=== PATIENT | female | born 1940 | race Caucasian/White ===

== ENCOUNTER 2018-04-14 14:40 | Inpatient (IN) | payer MEDICARE ==
[~2018-04-14] VITALS: Ht 170.2 cm; Wt 50.3 kg
[2018-04-14] MEDS ORDERED: ATOR40TA PO (14:54)
[2018-04-14] MEDS ORDERED: LISI40TA4 PO (14:54)
[2018-04-14] MEDS ORDERED: QUET25TA PO (14:54)
[2018-04-14] MEDS ORDERED: HYDR-4077 PO (14:54)
[2018-04-14] MEDS ORDERED: WARF-68 PO (14:54)
[2018-04-14] MEDS ORDERED: LACT1CAP61 PO (14:54)
[2018-04-14] MEDS ORDERED: FOLI1TAB16 PO (14:54)
[2018-04-14] MEDS ORDERED: ASCO500T9 PO (14:54)
[2018-04-14] MEDS ORDERED: ASPI-1169 PO (14:54)
[2018-04-14] MEDS ORDERED: THIA100T13 PO (14:54)
[2018-04-14] MEDS ORDERED: AMLO10TA2 PO (14:54)
[2018-04-14] MEDS ORDERED: ACET-868 PO (14:54)
[2018-04-14] MEDS ORDERED: PIPERACILLIN /TAZOBACTAM 3.375 G in IV D5W 50 ML IV ONE (15:00)
[2018-04-14] MEDS ORDERED: IV NS 0.9% 1,000 ML BAG IV ONE ×2 (15:00)
[2018-04-14] MEDS ORDERED: ACETAMINOPHEN 650 MG/SUPP.RECT RC ONE ×3 (15:00→15:19)
[2018-04-14 15:15] LABS: BASOPHILS # (AUTO) 0.4 /CMM (0.0-0.2); BASOPHILS % (AUTO) 3.2 % (0.0-2.0); HEMATOCRIT 35 % (33-45); HEMOGLOBIN 11.5 g/dL (11.5-14.8); LYMPHOCYTES # (AUTO) 0.9 /CMM (0.8-4.8); MEAN CORPUSCULAR HEMOGLOBIN 26 PG (26.0-33.0); MEAN CORPUSCULAR HGB CONC 33 g/dl (31.0-36.0); MEAN CORPUSCULAR VOLUME 79 fL (82-100); MONOCYTES # (AUTO) 0.9 /CMM (0.1-1.30); MONOCYTES % (AUTO) 6.7 % (2.0-12.0); NEUTROPHILS # (AUTO) 10.8 /CMM (1.8-8.9); NEUTROPHILS % (AUTO) 83.1 % (43.0-81.0); PLATELET COUNT (AUTO) 310 /CMM (150-450); RDW COEFFICIENT OF VARIATION 15.9 (11.5-15.0)
[2018-04-14 15:26] LABS: CALCIUM, SERUM 10.4 mg/dL (8.5-10.1); CARBON DIOXIDE 26 mmol/L (21-32); CHLORIDE 108 mmol/L (98-107); CREATININE 0.9 mg/dL (0.6-1.3); GLUCOSE 181 mg/dL (74-106); POTASSIUM 3.2 mmol/L (3.5-5.1); SODIUM SERUM 142 mmol/L (136-145); UREA NITROGEN, BLOOD 21 mg/dL (7-18)
[2018-04-14 15:29] LABS: INR 1.45 (0.85-1.15)
[2018-04-14] MEDS: POTASSIUM CL. PREMIX PERIPHER. 50 ML IV SCH ×2 (15:30→16:59)
[2018-04-14 15:31] LABS: ALANINE AMINOTRANSFERASE 11 U/L (12-78); ALBUMIN 2.2 g/dL (3.4-5.0); ALKALINE PHOSPHATASE 77 U/L (46-116); ASPARTATE AMINOTRANSFERASE 11 U/L (15-37); BILIRUBIN,DIRECT 0.1 mg/dL (0.0-0.2); BILIRUBIN,TOTAL 0.5 mg/dL (0.2-1.0); TOTAL PROTEIN, SERUM 7.4 g/dL (6.4-8.2)
[2018-04-14 15:33] LABS: TROPONIN I 0.047 ng/mL (0.00-0.056)
[2018-04-14 15:45] LABS: APPEARANCE,URINE Cloudy (CLEAR); BILIRUBIN,URINE Negative (NEGATIVE); BLOOD, URINE Trace-intact Ery/uL (NEGATIVE); COLOR,URINE Yellow (YELLOW); KETONES,URINE 15 (NEGATIVE); LEUKOCYTE ESTERASE ,URINE Small (NEGATIVE); NITRITE, URINE Positive (NEGATIVE); PROTEIN,URINE 100 mg/dl (NEGATIVE); UGLUCOSE Negative (NEGATIVE); UROBILINOGEN,URINE 0.2 EU/dL (0.2)
[2018-04-14 16:07] LABS: BACTERIA,URINE Moderate /HPF (None Seen); SQUAMOUS EPITHELIAL CELL,UR Few /HPF (None Seen)
[2018-04-14] MEDS ORDERED: POTASSIUM CL. PREMIX PERIPHER. 100 ML ONE (16:39)
[2018-04-14] MEDS ORDERED: IV NS 0.9% 1,000 ML IV PRN (17:30)
[2018-04-14] MEDS ORDERED: FEE PK DOSING 1 MIN EA MC ONE (17:51)
[2018-04-14] MEDS: VANCOMYCIN 500 MG in IV D5W 100 ML IV SCH (19:40)
[2018-04-14 20:32] VITALS: BP 97/55
[2018-04-14] MEDS ORDERED: ACETAMINOPHEN 325 MG TABLET PO PRN (21:00)
[2018-04-14] MEDS: MEROPENEM 1 G in IV NS 0.9% 100 ML IV SCH (21:01)
[2018-04-14 21:16] LABS: TROPONIN I 0.076 ng/mL (0.00-0.056)
[2018-04-14] MEDS: ATORVASTATIN 40 MG TABLET PO SCH (22:54)
[2018-04-14] MEDS: QUETIAPINE FUMARATE 25 MG TABLET PO SCH (22:56)
[2018-04-14 23:42] VITALS: BP 125/53
[2018-04-15] VITALS (14 sets, daily range): BP systolic 105–163; BP diastolic 35–89
[2018-04-15] MEDS: VANCOMYCIN 500 MG in IV D5W 100 ML IV SCH ×2 (05:20→18:10)
[2018-04-15 06:53] LABS: INR 2.19 (0.87-1.13)
[2018-04-15 06:58] LABS: BASOPHILS # (AUTO) 0.1 /CMM (0.0-0.2); BASOPHILS % (AUTO) 0.4 % (0.0-2.0); EOSINOPHILS % (AUTO) 0.1 % (0.0-6.0); HEMATOCRIT 29 % (33-45); HEMOGLOBIN 9.6 g/dL (11.5-14.8); LYMPHOCYTES # (AUTO) 1.7 /CMM (0.8-4.8); LYMPHOCYTES % (AUTO) 12.8 % (20.0-44.0); MEAN CORPUSCULAR HEMOGLOBIN 26 PG (26.0-33.0); MEAN CORPUSCULAR HGB CONC 33 g/dl (31.0-36.0); MEAN CORPUSCULAR VOLUME 80 fL (82-100); MONOCYTES # (AUTO) 0.8 /CMM (0.1-1.30); NEUTROPHILS # (AUTO) 10.5 /CMM (1.8-8.9); NEUTROPHILS % (AUTO) 80.7 % (43.0-81.0); PLATELET COUNT (AUTO) 277 /CMM (150-450); RDW COEFFICIENT OF VARIATION 17.3 (11.5-15.0); RED BLOOD CELL COUNT(AUTO) 3.63 MIL/uL (4.0-5.2)
[2018-04-15 07:04] LABS: CALCIUM, SERUM 9.7 mg/dL (8.5-10.1); CARBON DIOXIDE 24 mmol/L (21-32); CHLORIDE 117 mmol/L (98-107); CREATININE 0.6 mg/dL (0.6-1.3); GLUCOSE 126 mg/dL (74-106); MAGNESIUM 1.6 mg/dL (1.8-2.4); PHOSPHORUS 1.8 mg/dL (2.5-4.9); POTASSIUM 3.2 mmol/L (3.5-5.1); SODIUM SERUM 149 mmol/L (136-145); UREA NITROGEN, BLOOD 17 mg/dL (7-18)
[2018-04-15 07:10] LABS: CHOLESTEROL 79 mg/dL (<200); HDL CHOLESTEROL 37 mg/dL (40-60); LDL 39 mg/dL (0-99); THYROID STIMULATING HORMONE 0.085 uIU/mL (0.358-3.74); TRIGLYCERIDES 46 mg/dL (30-150)
[2018-04-15 07:11] LABS: TROPONIN I 0.061 ng/mL (0.00-0.056)
[2018-04-15] MEDS ORDERED: ASPIRIN 81 MG TAB.CHEW PO SCH (09:00)
[2018-04-15] MEDS: MEROPENEM 1 G in IV NS 0.9% 100 ML IV SCH ×2 (09:13→22:46)
[2018-04-15] MEDS: FOLIC ACID 1 MG TABLET PO SCH (09:20)
[2018-04-15] MEDS: THIAMINE HCL 100 MG TABLET PO SCH (09:20)
[2018-04-15] MEDS: ASCORBIC ACID 500 MG TABLET PO SCH (09:20)
[2018-04-15] MEDS: PANTOPRAZOLE 40 MG VIAL IV SCH (09:20)
[2018-04-15] MEDS: LACTOBACILLUS RHAMNOSUS GG 1 EACH CAP.SPRINK PO SCH (09:20)
[2018-04-15] MEDS ORDERED: HYDROGEL DRESSING 90 GM TUBE TP PRN (11:00)
[2018-04-15] MEDS: Magnesium 1GM/D5W 100ML PREMIX 100 ML IV SCH ×2 (11:45→15:04)
[2018-04-15] MEDS ORDERED: IV D5/0.45 NACL 1,000 ML IV PRN (12:00)
[2018-04-15] MEDS ORDERED: PHYTONADIONE INJ 10 MG in IV D5W 50 ML IV ONE (12:30)
[2018-04-15 12:33] LABS: BASOPHILS % (AUTO) 0.4 % (0.0-2.0); EOSINOPHILS % (AUTO) 0.4 % (0.0-6.0); HEMATOCRIT 29 % (33-45); HEMOGLOBIN 9.5 g/dL (11.5-14.8); LYMPHOCYTES # (AUTO) 1.2 /CMM (0.8-4.8); LYMPHOCYTES % (AUTO) 9.8 % (20.0-44.0); MEAN CORPUSCULAR HEMOGLOBIN 26 PG (26.0-33.0); MEAN CORPUSCULAR HGB CONC 33 g/dl (31.0-36.0); MEAN CORPUSCULAR VOLUME 80 fL (82-100); MONOCYTES # (AUTO) 0.7 /CMM (0.1-1.30); MONOCYTES % (AUTO) 5.2 % (2.0-12.0); NEUTROPHILS # (AUTO) 10.6 /CMM (1.8-8.9); NEUTROPHILS % (AUTO) 84.2 % (43.0-81.0); PLATELET COUNT (AUTO) 272 /CMM (150-450); RDW COEFFICIENT OF VARIATION 17.5 (11.5-15.0); RED BLOOD CELL COUNT(AUTO) 3.65 MIL/uL (4.0-5.2); WHITE BLOOD COUNT (AUTO) 12.6 K/uL (4.3-11.0)
[2018-04-15] MEDS ORDERED: K PHOS NEUTRAL 250 MG TABLET PO ONE (14:00)
[2018-04-15 14:25] LABS: INR 2.88 (0.87-1.13)
[2018-04-15] MEDS: POTASSIUM CL. PREMIX PERIPHER. 50 ML IV SCH ×4 (15:20→19:23)
[2018-04-15] MEDS: Z GUARD REMEDY 2 OZ OINT TP PRN (15:22)
[2018-04-15] MEDS: Z GUARD REMEDY 2 OZ OINT TP SCH (15:25)
[2018-04-15] MEDS ORDERED: WARFARIN SODIUM 1 MG TABLET PO SCH (17:00)
[2018-04-15] MEDS: CADEXOMER IODINE 40 GM TUBE TP SCH (17:40)
[2018-04-15] MEDS: HYDROGEL DRESSING 90 GM TUBE TP SCH (17:41)
[2018-04-15 18:25] LABS: HEMOGLOBIN 10.7 g/dL (11.5-14.8); RED BLOOD CELL COUNT(AUTO) 4.17 MIL/uL (4.0-5.2); WHITE BLOOD COUNT (AUTO) 13.1 K/uL (4.3-11.0)
[2018-04-15 18:26] LABS: BASOPHILS % (AUTO) 0.2 % (0.0-2.0); EOSINOPHILS % (AUTO) 1.2 % (0.0-6.0); HEMATOCRIT 34 % (33-45); LYMPHOCYTES # (AUTO) 1.2 /CMM (0.8-4.8); MEAN CORPUSCULAR HEMOGLOBIN 26 PG (26.0-33.0); MEAN CORPUSCULAR HGB CONC 32 g/dl (31.0-36.0); MEAN CORPUSCULAR VOLUME 82 fL (82-100); MONOCYTES # (AUTO) 0.7 /CMM (0.1-1.30); MONOCYTES % (AUTO) 5.7 % (2.0-12.0); NEUTROPHILS % (AUTO) 83.9 % (43.0-81.0); PLATELET COUNT (AUTO) 243 /CMM (150-450); RDW COEFFICIENT OF VARIATION 17.2 (11.5-15.0)
[2018-04-15] MEDS: ATORVASTATIN 40 MG TABLET PO SCH (21:13)
[2018-04-15] MEDS: QUETIAPINE FUMARATE 25 MG TABLET PO SCH (21:13)
[2018-04-15] MEDS ORDERED: MEROPENEM 1 G VIAL IV ONE (22:36)
[2018-04-16] VITALS (24 sets, daily range): BP systolic 97–168; BP diastolic 50–93
[2018-04-16 00:28] LABS: BASOPHILS % (AUTO) 0.1 % (0.0-2.0); EOSINOPHILS % (AUTO) 1.3 % (0.0-6.0); HEMATOCRIT 29 % (33-45); HEMOGLOBIN 9.5 g/dL (11.5-14.8); LYMPHOCYTES # (AUTO) 1.1 /CMM (0.8-4.8); LYMPHOCYTES % (AUTO) 7.4 % (20.0-44.0); MEAN CORPUSCULAR HEMOGLOBIN 26 PG (26.0-33.0); MEAN CORPUSCULAR HGB CONC 33 g/dl (31.0-36.0); MEAN CORPUSCULAR VOLUME 80 fL (82-100); MONOCYTES # (AUTO) 0.7 /CMM (0.1-1.30); MONOCYTES % (AUTO) 4.8 % (2.0-12.0); NEUTROPHILS # (AUTO) 12.9 /CMM (1.8-8.9); NEUTROPHILS % (AUTO) 86.4 % (43.0-81.0); PLATELET COUNT (AUTO) 292 /CMM (150-450); RDW COEFFICIENT OF VARIATION 17.1 (11.5-15.0); RED BLOOD CELL COUNT(AUTO) 3.62 MIL/uL (4.0-5.2)
[2018-04-16] MEDS: VANCOMYCIN 500 MG in IV D5W 100 ML IV SCH (05:04)
[2018-04-16 05:12] LABS: BASOPHILS % (AUTO) 0.1 % (0.0-2.0); EOSINOPHILS % (AUTO) 1.5 % (0.0-6.0); HEMATOCRIT 29 % (33-45); HEMOGLOBIN 9.7 g/dL (11.5-14.8); LYMPHOCYTES # (AUTO) 1.3 /CMM (0.8-4.8); LYMPHOCYTES % (AUTO) 8.5 % (20.0-44.0); MEAN CORPUSCULAR HEMOGLOBIN 26 PG (26.0-33.0); MEAN CORPUSCULAR HGB CONC 33 g/dl (31.0-36.0); MEAN CORPUSCULAR VOLUME 80 fL (82-100); MONOCYTES # (AUTO) 0.7 /CMM (0.1-1.30); MONOCYTES % (AUTO) 4.6 % (2.0-12.0); NEUTROPHILS # (AUTO) 12.8 /CMM (1.8-8.9); NEUTROPHILS % (AUTO) 85.3 % (43.0-81.0); PLATELET COUNT (AUTO) 278 /CMM (150-450); RDW COEFFICIENT OF VARIATION 16.8 (11.5-15.0); RED BLOOD CELL COUNT(AUTO) 3.67 MIL/uL (4.0-5.2)
[2018-04-16 05:47] LABS: VANCOMYCIN,TROUGH 8 ug/ml (12-20)
[2018-04-16 05:55] LABS: CALCIUM, SERUM 9.3 mg/dL (8.5-10.1); CARBON DIOXIDE 23 mmol/L (21-32); CHLORIDE 111 mmol/L (98-107); CREATININE 0.4 mg/dL (0.6-1.3); GLUCOSE 165 mg/dL (74-106); MAGNESIUM 1.6 mg/dL (1.8-2.4); SODIUM SERUM 145 mmol/L (136-145); UREA NITROGEN, BLOOD 9 mg/dL (7-18)
[2018-04-16 06:01] LABS: POTASSIUM 2.5 mmol/L (3.5-5.1)
[2018-04-16 06:02] LABS: PHOSPHORUS 1.1 mg/dL (2.5-4.9)
[2018-04-16] MEDS: POTASSIUM CL. PREMIX PERIPHER. 50 ML IV SCH ×10 (07:17→17:33)
[2018-04-16] MEDS ORDERED: POTASSIUM CL. PREMIX PERIPHER. 50 ML IV SCH (08:00)
[2018-04-16] MEDS: PANTOPRAZOLE 40 MG VIAL IV SCH (08:42)
[2018-04-16] MEDS: THIAMINE HCL 100 MG TABLET PO SCH (08:42)
[2018-04-16] MEDS: LACTOBACILLUS RHAMNOSUS GG 1 EACH CAP.SPRINK PO SCH (08:42)
[2018-04-16] MEDS: ASCORBIC ACID 500 MG TABLET PO SCH (08:42)
[2018-04-16] MEDS: FOLIC ACID 1 MG TABLET PO SCH (08:43)
[2018-04-16] MEDS: HYDROGEL DRESSING 90 GM TUBE TP SCH (08:43)
[2018-04-16] MEDS: Z GUARD REMEDY 2 OZ OINT TP SCH (08:43)
[2018-04-16] MEDS: CADEXOMER IODINE 40 GM TUBE TP SCH (08:44)
[2018-04-16] MEDS: MEROPENEM 1 G in IV NS 0.9% 100 ML IV SCH (08:45)
[2018-04-16 08:50] LABS: INR 1.09 (0.87-1.13)
[2018-04-16 09:24] LABS: TROPONIN I 0.401 ng/mL (0.00-0.056)
[2018-04-16] MEDS: Magnesium 1GM/D5W 100ML PREMIX 100 ML IV SCH ×2 (09:55→10:55)
[2018-04-16 16:12] LABS: BASOPHILS % (AUTO) 0.3 % (0.0-2.0); EOSINOPHILS % (AUTO) 1.7 % (0.0-6.0); HEMATOCRIT 31 % (33-45); HEMOGLOBIN 9.9 g/dL (11.5-14.8); LYMPHOCYTES # (AUTO) 1.4 /CMM (0.8-4.8); MEAN CORPUSCULAR HEMOGLOBIN 26 PG (26.0-33.0); MEAN CORPUSCULAR HGB CONC 32 g/dl (31.0-36.0); MEAN CORPUSCULAR VOLUME 80 fL (82-100); MONOCYTES # (AUTO) 0.6 /CMM (0.1-1.30); MONOCYTES % (AUTO) 3.5 % (2.0-12.0); NEUTROPHILS # (AUTO) 13.6 /CMM (1.8-8.9); NEUTROPHILS % (AUTO) 85.5 % (43.0-81.0); PLATELET COUNT (AUTO) 215 /CMM (150-450); RDW COEFFICIENT OF VARIATION 17.2 (11.5-15.0); RED BLOOD CELL COUNT(AUTO) 3.85 MIL/uL (4.0-5.2); WHITE BLOOD COUNT (AUTO) 15.9 K/uL (4.3-11.0)
[2018-04-16] MEDS: VANCOMYCIN 0.75 GM in IV D5W 250 ML IV SCH (16:50)
[2018-04-16] MEDS ORDERED: K PHOS NEUTRAL 250 MG TABLET PO SCH (17:00)
[2018-04-16] MEDS ORDERED: IV NS 0.9% 500 ML BAG IV ONE (17:30)
[2018-04-16] MEDS: RIVAROXABAN 10 MG TABLET PO SCH (17:34)
[2018-04-16 18:10] LABS: BASOPHILS % (AUTO) 0.3 % (0.0-2.0); EOSINOPHILS % (AUTO) 1.8 % (0.0-6.0); HEMATOCRIT 31 % (33-45); HEMOGLOBIN 10.1 g/dL (11.5-14.8); LYMPHOCYTES # (AUTO) 1.3 /CMM (0.8-4.8); MEAN CORPUSCULAR HEMOGLOBIN 26 PG (26.0-33.0); MEAN CORPUSCULAR HGB CONC 33 g/dl (31.0-36.0); MEAN CORPUSCULAR VOLUME 80 fL (82-100); MONOCYTES # (AUTO) 0.5 /CMM (0.1-1.30); MONOCYTES % (AUTO) 3.2 % (2.0-12.0); NEUTROPHILS # (AUTO) 12.2 /CMM (1.8-8.9); NEUTROPHILS % (AUTO) 85.7 % (43.0-81.0); PLATELET COUNT (AUTO) 280 /CMM (150-450); RDW COEFFICIENT OF VARIATION 17.3 (11.5-15.0); RED BLOOD CELL COUNT(AUTO) 3.83 MIL/uL (4.0-5.2); WHITE BLOOD COUNT (AUTO) 14.2 K/uL (4.3-11.0)
[2018-04-16] MEDS: CEFEPIME 1 GM in IV D5W 50 ML IV SCH (18:51)
[2018-04-16 18:56] LABS: CARBON DIOXIDE 22 mmol/L (21-32); CHLORIDE 108 mmol/L (98-107); CREATININE 0.5 mg/dL (0.6-1.3); GLUCOSE 261 mg/dL (74-106); MAGNESIUM 1.8 mg/dL (1.8-2.4); POTASSIUM 3.8 mmol/L (3.5-5.1); SODIUM SERUM 138 mmol/L (136-145); UREA NITROGEN, BLOOD 9 mg/dL (7-18)
[2018-04-16] MEDS ORDERED: Sodium Phosphate 15 MMOL in IV D5W 250 ML IV ONE (20:00)
[2018-04-16] MEDS: QUETIAPINE FUMARATE 25 MG TABLET PO SCH (23:01)
[2018-04-17] VITALS (23 sets, daily range): BP systolic 102–161; BP diastolic 55–100
[2018-04-17] MEDS: VANCOMYCIN 0.75 GM in IV D5W 250 ML IV SCH ×2 (03:40→15:35)
[2018-04-17 05:04] LABS: BASOPHILS % (AUTO) 0.3 % (0.0-2.0); EOSINOPHILS % (AUTO) 2.3 % (0.0-6.0); HEMATOCRIT 31 % (33-45); HEMOGLOBIN 10.1 g/dL (11.5-14.8); LYMPHOCYTES # (AUTO) 1.4 /CMM (0.8-4.8); LYMPHOCYTES % (AUTO) 9.9 % (20.0-44.0); MEAN CORPUSCULAR HEMOGLOBIN 26 PG (26.0-33.0); MEAN CORPUSCULAR HGB CONC 33 g/dl (31.0-36.0); MEAN CORPUSCULAR VOLUME 80 fL (82-100); MONOCYTES # (AUTO) 0.5 /CMM (0.1-1.30); MONOCYTES % (AUTO) 3.8 % (2.0-12.0); NEUTROPHILS # (AUTO) 12.2 /CMM (1.8-8.9); NEUTROPHILS % (AUTO) 83.7 % (43.0-81.0); PLATELET COUNT (AUTO) 276 /CMM (150-450); RDW COEFFICIENT OF VARIATION 16.9 (11.5-15.0); RED BLOOD CELL COUNT(AUTO) 3.85 MIL/uL (4.0-5.2); WHITE BLOOD COUNT (AUTO) 14.5 K/uL (4.3-11.0)
[2018-04-17 05:19] LABS: ALANINE AMINOTRANSFERASE 17 U/L (12-78); ALBUMIN 1.7 g/dL (3.4-5.0); ALKALINE PHOSPHATASE 86 U/L (46-116); ASPARTATE AMINOTRANSFERASE 20 U/L (15-37); BILIRUBIN,TOTAL 0.4 mg/dL (0.2-1.0); CALCIUM, SERUM 8.8 mg/dL (8.5-10.1); CARBON DIOXIDE 22 mmol/L (21-32); CHLORIDE 107 mmol/L (98-107); CREATININE 0.4 mg/dL (0.6-1.3); GLUCOSE 210 mg/dL (74-106); MAGNESIUM 2.3 mg/dL (1.8-2.4); PHOSPHORUS 1.6 mg/dL (2.5-4.9); SODIUM SERUM 139 mmol/L (136-145); TOTAL PROTEIN, SERUM 6.1 g/dL (6.4-8.2); UREA NITROGEN, BLOOD 8 mg/dL (7-18)
[2018-04-17 05:31] LABS: POTASSIUM 2.6 mmol/L (3.5-5.1)
[2018-04-17] MEDS ORDERED: POTASSIUM CHLORIDE 20 MEQ TAB.PRT.SR PO ONE (06:30)
[2018-04-17] MEDS: POTASSIUM CL. PREMIX PERIPHER. 50 ML IV SCH ×4 (06:36→11:00)
[2018-04-17] MEDS: PANTOPRAZOLE 40 MG VIAL IV SCH (08:11)
[2018-04-17] MEDS: LACTOBACILLUS RHAMNOSUS GG 1 EACH CAP.SPRINK PO SCH (09:21)
[2018-04-17] MEDS: FOLIC ACID 1 MG TABLET PO SCH (09:21)
[2018-04-17] MEDS: ASCORBIC ACID 500 MG TABLET PO SCH (09:21)
[2018-04-17] MEDS: THIAMINE HCL 100 MG TABLET PO SCH (09:21)
[2018-04-17] MEDS: HYDROGEL DRESSING 90 GM TUBE TP SCH (09:22)
[2018-04-17] MEDS: Z GUARD REMEDY 2 OZ OINT TP SCH (09:23)
[2018-04-17] MEDS: CADEXOMER IODINE 40 GM TUBE TP SCH (09:23)
[2018-04-17] MEDS: MORPHINE SULFATE INJ 4 MG/ML DISP.SYRIN IV PRN (11:49)
[2018-04-17 13:24] LABS: BASOPHILS % (AUTO) 0.2 % (0.0-2.0); EOSINOPHILS % (AUTO) 2.4 % (0.0-6.0); HEMATOCRIT 31 % (33-45); HEMOGLOBIN 10.1 g/dL (11.5-14.8); LYMPHOCYTES # (AUTO) 1.2 /CMM (0.8-4.8); LYMPHOCYTES % (AUTO) 9.2 % (20.0-44.0); MEAN CORPUSCULAR HEMOGLOBIN 26 PG (26.0-33.0); MEAN CORPUSCULAR HGB CONC 33 g/dl (31.0-36.0); MEAN CORPUSCULAR VOLUME 80 fL (82-100); MONOCYTES # (AUTO) 0.5 /CMM (0.1-1.30); MONOCYTES % (AUTO) 3.9 % (2.0-12.0); NEUTROPHILS # (AUTO) 11.1 /CMM (1.8-8.9); NEUTROPHILS % (AUTO) 84.3 % (43.0-81.0); PLATELET COUNT (AUTO) 294 /CMM (150-450); RED BLOOD CELL COUNT(AUTO) 3.83 MIL/uL (4.0-5.2); WHITE BLOOD COUNT (AUTO) 13.1 K/uL (4.3-11.0)
[2018-04-17] MEDS ORDERED: DEXTROSE 50%-WATER 50 ML DISP.SYRIN IV PRN (13:30)
[2018-04-17] MEDS ORDERED: K PHOS NEUTRAL 250 MG TABLET PO ONE (13:30)
[2018-04-17 15:53] LABS: MAGNESIUM 1.6 mg/dL (1.8-2.4); PHOSPHORUS 1.6 mg/dL (2.5-4.9)
[2018-04-17] MEDS: K PHOS NEUTRAL 250 MG TABLET PO SCH ×2 (16:41→22:31)
[2018-04-17] MEDS: RIVAROXABAN 10 MG TABLET PO SCH (16:44)
[2018-04-17] MEDS: Magnesium 1GM/D5W 100ML PREMIX 100 ML IV SCH ×2 (16:51→18:31)
[2018-04-17] MEDS: BLOOD SUGAR DIAGNOSTIC 1 EACH STRIP IN SCH ×2 (17:52→22:31)
[2018-04-17] MEDS: CEFEPIME 1 GM in IV D5W 50 ML IV SCH (17:52)
[2018-04-17] MEDS: INSULIN REGULAR, HUMAN 100 UNIT/ML 3 ML VIAL SQ PRN ×2 (17:53→22:50)
[2018-04-17 18:06] LABS: BASOPHILS % (AUTO) 0.2 % (0.0-2.0); EOSINOPHILS % (AUTO) 2.8 % (0.0-6.0); HEMATOCRIT 31 % (33-45); LYMPHOCYTES # (AUTO) 1.5 /CMM (0.8-4.8); MEAN CORPUSCULAR HEMOGLOBIN 26 PG (26.0-33.0); MEAN CORPUSCULAR HGB CONC 32 g/dl (31.0-36.0); MEAN CORPUSCULAR VOLUME 80 fL (82-100); MONOCYTES # (AUTO) 0.5 /CMM (0.1-1.30); MONOCYTES % (AUTO) 3.9 % (2.0-12.0); NEUTROPHILS # (AUTO) 10.4 /CMM (1.8-8.9); NEUTROPHILS % (AUTO) 81.1 % (43.0-81.0); PLATELET COUNT (AUTO) 297 /CMM (150-450); RDW COEFFICIENT OF VARIATION 17.7 (11.5-15.0); RED BLOOD CELL COUNT(AUTO) 3.88 MIL/uL (4.0-5.2); WHITE BLOOD COUNT (AUTO) 12.9 K/uL (4.3-11.0)
[2018-04-17] MEDS: QUETIAPINE FUMARATE 25 MG TABLET PO SCH (22:31)
[2018-04-18] VITALS (22 sets, daily range): BP systolic 140–180; BP diastolic 65–99
[2018-04-18 00:46] LABS: MAGNESIUM 2.2 mg/dL (1.8-2.4); POTASSIUM 2.9 mmol/L (3.5-5.1)
[2018-04-18] MEDS ORDERED: POTASSIUM PHOSPHATE MM 15 MMOL in IV D5W 250 ML IV SCH ×4 (02:30)
[2018-04-18] MEDS ORDERED: POTASSIUM CHLORIDE 20 MEQ TAB.PRT.SR PO ONE (02:30)
[2018-04-18] MEDS: VANCOMYCIN 0.75 GM in IV D5W 250 ML IV SCH ×2 (02:57→15:56)
[2018-04-18] MEDS: PANTOPRAZOLE 40 MG VIAL IV SCH (08:28)
[2018-04-18] MEDS: K PHOS NEUTRAL 250 MG TABLET PO SCH ×4 (08:28→21:30)
[2018-04-18] MEDS: FOLIC ACID 1 MG TABLET PO SCH (08:28)
[2018-04-18] MEDS: LACTOBACILLUS RHAMNOSUS GG 1 EACH CAP.SPRINK PO SCH (08:28)
[2018-04-18] MEDS: ASCORBIC ACID 500 MG TABLET PO SCH (08:28)
[2018-04-18] MEDS: BLOOD SUGAR DIAGNOSTIC 1 EACH STRIP IN SCH ×4 (08:28→22:04)
[2018-04-18] MEDS: THIAMINE HCL 100 MG TABLET PO SCH (08:28)
[2018-04-18] MEDS: HYDROGEL DRESSING 90 GM TUBE TP SCH (08:29)
[2018-04-18] MEDS: Z GUARD REMEDY 2 OZ OINT TP SCH (08:30)
[2018-04-18] MEDS: CADEXOMER IODINE 40 GM TUBE TP SCH (08:30)
[2018-04-18 08:31] LABS: CALCIUM, SERUM 8.8 mg/dL (8.5-10.1); CARBON DIOXIDE 25 mmol/L (21-32); CHLORIDE 107 mmol/L (98-107); CREATININE 0.4 mg/dL (0.6-1.3); GLUCOSE 170 mg/dL (74-106); POTASSIUM 3.2 mmol/L (3.5-5.1); SODIUM SERUM 140 mmol/L (136-145); UREA NITROGEN, BLOOD 6 mg/dL (7-18)
[2018-04-18 08:49] LABS: ALANINE AMINOTRANSFERASE 20 U/L (12-78); ALBUMIN 1.7 g/dL (3.4-5.0); ALKALINE PHOSPHATASE 81 U/L (46-116); ASPARTATE AMINOTRANSFERASE 18 U/L (15-37); BASOPHILS % (AUTO) 0.3 % (0.0-2.0); BILIRUBIN,TOTAL 0.4 mg/dL (0.2-1.0); EOSINOPHILS % (AUTO) 4.3 % (0.0-6.0); HEMATOCRIT 31 % (33-45); HEMOGLOBIN 10.3 g/dL (11.5-14.8); LYMPHOCYTES # (AUTO) 1.5 /CMM (0.8-4.8); LYMPHOCYTES % (AUTO) 12.7 % (20.0-44.0); MAGNESIUM 1.9 mg/dL (1.8-2.4); MEAN CORPUSCULAR HEMOGLOBIN 26 PG (26.0-33.0); MEAN CORPUSCULAR HGB CONC 33 g/dl (31.0-36.0); MEAN CORPUSCULAR VOLUME 80 fL (82-100); MONOCYTES # (AUTO) 0.5 /CMM (0.1-1.30); MONOCYTES % (AUTO) 4.6 % (2.0-12.0); NEUTROPHILS # (AUTO) 9.2 /CMM (1.8-8.9); NEUTROPHILS % (AUTO) 78.1 % (43.0-81.0); PHOSPHORUS 2.5 mg/dL (2.5-4.9); PLATELET COUNT (AUTO) 304 /CMM (150-450); RDW COEFFICIENT OF VARIATION 17.2 (11.5-15.0); RED BLOOD CELL COUNT(AUTO) 3.93 MIL/uL (4.0-5.2); TOTAL PROTEIN, SERUM 6.1 g/dL (6.4-8.2); WHITE BLOOD COUNT (AUTO) 11.7 K/uL (4.3-11.0)
[2018-04-18] MEDS ORDERED: POTASSIUM CHLORIDE 20 MEQ TAB.PRT.SR PO SCH (10:00)
[2018-04-18] MEDS ORDERED: LORAZEPAM 0.5 MG TABLET PO PRN (10:00)
[2018-04-18] MEDS: QUETIAPINE FUMARATE 25 MG TABLET PO SCH ×3 (10:03→21:30)
[2018-04-18] MEDS: RIVAROXABAN 10 MG TABLET PO SCH (16:18)
[2018-04-18] MEDS: INSULIN REGULAR, HUMAN 100 UNIT/ML 3 ML VIAL SQ PRN ×2 (17:14→22:06)
[2018-04-18] MEDS: CEFEPIME 1 GM in IV D5W 50 ML IV SCH (17:21)
[2018-04-19] VITALS: BP 150/66
[2018-04-19] MEDS: VANCOMYCIN 0.75 GM in IV D5W 250 ML IV SCH ×2 (02:19→14:35)
[2018-04-19 04:00] VITALS: BP 99/33
[2018-04-19 06:13] LABS: BASOPHILS % (AUTO) 0.2 % (0.0-2.0); EOSINOPHILS % (AUTO) 4.7 % (0.0-6.0); HEMATOCRIT 31 % (33-45); HEMOGLOBIN 10.1 g/dL (11.5-14.8); LYMPHOCYTES # (AUTO) 1.9 /CMM (0.8-4.8); LYMPHOCYTES % (AUTO) 16.7 % (20.0-44.0); MEAN CORPUSCULAR HEMOGLOBIN 26 PG (26.0-33.0); MEAN CORPUSCULAR HGB CONC 33 g/dl (31.0-36.0); MEAN CORPUSCULAR VOLUME 80 fL (82-100); MONOCYTES # (AUTO) 0.7 /CMM (0.1-1.30); MONOCYTES % (AUTO) 6.4 % (2.0-12.0); NEUTROPHILS # (AUTO) 8.3 /CMM (1.8-8.9); PLATELET COUNT (AUTO) 303 /CMM (150-450); RDW COEFFICIENT OF VARIATION 16.5 (11.5-15.0); RED BLOOD CELL COUNT(AUTO) 3.85 MIL/uL (4.0-5.2); WHITE BLOOD COUNT (AUTO) 11.5 K/uL (4.3-11.0)
[2018-04-19 06:46] LABS: CALCIUM, SERUM 8.9 mg/dL (8.5-10.1); CARBON DIOXIDE 25 mmol/L (21-32); CHLORIDE 109 mmol/L (98-107); CREATININE 0.4 mg/dL (0.6-1.3); GLUCOSE 148 mg/dL (74-106); MAGNESIUM 1.7 mg/dL (1.8-2.4); PHOSPHORUS 2.4 mg/dL (2.5-4.9); POTASSIUM 3.1 mmol/L (3.5-5.1); SODIUM SERUM 143 mmol/L (136-145); UREA NITROGEN, BLOOD 8 mg/dL (7-18)
[2018-04-19] MEDS: BLOOD SUGAR DIAGNOSTIC 1 EACH STRIP IN SCH ×4 (07:30→21:25)
[2018-04-19 08:00] VITALS: BP 150/69
[2018-04-19] MEDS: INSULIN REGULAR, HUMAN 100 UNIT/ML 3 ML VIAL SQ PRN ×4 (08:29→21:34)
[2018-04-19] MEDS: LACTOBACILLUS RHAMNOSUS GG 1 EACH CAP.SPRINK PO SCH (08:30)
[2018-04-19] MEDS: K PHOS NEUTRAL 250 MG TABLET PO SCH ×4 (08:30→21:25)
[2018-04-19] MEDS: PANTOPRAZOLE 40 MG VIAL IV SCH (08:30)
[2018-04-19] MEDS: FOLIC ACID 1 MG TABLET PO SCH (08:30)
[2018-04-19] MEDS: QUETIAPINE FUMARATE 25 MG TABLET PO SCH ×3 (08:31→21:25)
[2018-04-19] MEDS: THIAMINE HCL 100 MG TABLET PO SCH (08:31)
[2018-04-19] MEDS: ASCORBIC ACID 500 MG TABLET PO SCH (08:31)
[2018-04-19] MEDS: Z GUARD REMEDY 2 OZ OINT TP PRN (08:32)
[2018-04-19] MEDS: CADEXOMER IODINE 40 GM TUBE TP SCH (08:32)
[2018-04-19] MEDS: HYDROGEL DRESSING 90 GM TUBE TP SCH (08:32)
[2018-04-19] MEDS: Z GUARD REMEDY 2 OZ OINT TP SCH (08:33)
[2018-04-19] MEDS: Magnesium 1GM/D5W 100ML PREMIX 100 ML IV SCH ×2 (09:44→11:07)
[2018-04-19] MEDS: POTASSIUM CL. PREMIX PERIPHER. 50 ML IV SCH ×4 (11:00→13:47)
[2018-04-19 12:00] VITALS: BP 162/54
[2018-04-19] MEDS: AMLODIPINE BESYLATE 5 MG TABLET PO SCH (12:37)
[2018-04-19] MEDS ORDERED: K PHOS NEUTRAL 250 MG TABLET PO ONE (13:30)
[2018-04-19 16:00] VITALS: BP 144/77
[2018-04-19] MEDS: RIVAROXABAN 10 MG TABLET PO SCH (16:05)
[2018-04-19] MEDS: CEFEPIME 1 GM in IV D5W 50 ML IV SCH (18:10)
[2018-04-19] MEDS: FLUCONAZOLE (100 MG) 100 MG TABLET PO SCH (19:41)
[2018-04-19 20:00] VITALS: BP 130/55
[2018-04-20] VITALS (7 sets, daily range): BP systolic 138–168; BP diastolic 63–72
[2018-04-20] MEDS: VANCOMYCIN 0.75 GM in IV D5W 250 ML IV SCH ×2 (03:34→15:12)
[2018-04-20 06:32] LABS: BASOPHILS % (AUTO) 0.4 % (0.0-2.0); EOSINOPHILS % (AUTO) 5.2 % (0.0-6.0); HEMATOCRIT 29 % (33-45); HEMOGLOBIN 9.4 g/dL (11.5-14.8); LYMPHOCYTES # (AUTO) 2.2 /CMM (0.8-4.8); LYMPHOCYTES % (AUTO) 22.3 % (20.0-44.0); MEAN CORPUSCULAR HEMOGLOBIN 26 PG (26.0-33.0); MEAN CORPUSCULAR HGB CONC 33 g/dl (31.0-36.0); MEAN CORPUSCULAR VOLUME 79 fL (82-100); MONOCYTES # (AUTO) 0.7 /CMM (0.1-1.30); MONOCYTES % (AUTO) 6.9 % (2.0-12.0); NEUTROPHILS # (AUTO) 6.6 /CMM (1.8-8.9); NEUTROPHILS % (AUTO) 65.2 % (43.0-81.0); PLATELET COUNT (AUTO) 302 /CMM (150-450); RDW COEFFICIENT OF VARIATION 16.9 (11.5-15.0); RED BLOOD CELL COUNT(AUTO) 3.61 MIL/uL (4.0-5.2); WHITE BLOOD COUNT (AUTO) 10.1 K/uL (4.3-11.0)
[2018-04-20 06:34] LABS: CALCIUM, SERUM 8.8 mg/dL (8.5-10.1); CARBON DIOXIDE 28 mmol/L (21-32); CHLORIDE 109 mmol/L (98-107); CREATININE 0.4 mg/dL (0.6-1.3); GLUCOSE 166 mg/dL (74-106); SODIUM SERUM 144 mmol/L (136-145); UREA NITROGEN, BLOOD 10 mg/dL (7-18)
[2018-04-20 07:09] LABS: POTASSIUM 2.7 mmol/L (3.5-5.1)
[2018-04-20] MEDS ORDERED: POTASSIUM CHLORIDE 10 MEQ/50 ML PREMIXED IVPB FOR PERIPHERAL LINE IV ONE (08:30)
[2018-04-20] MEDS ORDERED: POTASSIUM CHLORIDE 20 MEQ POWDER PACKET PO ONE (08:30)
[2018-04-20] MEDS: BLOOD SUGAR DIAGNOSTIC 1 EACH STRIP IN SCH ×4 (08:43→21:23)
[2018-04-20] MEDS: POTASSIUM CL. PREMIX PERIPHER. 50 ML IV SCH ×4 (08:44→12:20)
[2018-04-20] MEDS: LACTOBACILLUS RHAMNOSUS GG 1 EACH CAP.SPRINK PO SCH (09:50)
[2018-04-20] MEDS: FOLIC ACID 1 MG TABLET PO SCH (09:50)
[2018-04-20] MEDS: THIAMINE HCL 100 MG TABLET PO SCH (09:50)
[2018-04-20] MEDS: PANTOPRAZOLE 40 MG VIAL IV SCH (09:50)
[2018-04-20] MEDS: ASCORBIC ACID 500 MG TABLET PO SCH (09:50)
[2018-04-20] MEDS: AMLODIPINE BESYLATE 5 MG TABLET PO SCH (09:51)
[2018-04-20] MEDS: K PHOS NEUTRAL 250 MG TABLET PO SCH ×4 (09:51→21:23)
[2018-04-20] MEDS: CADEXOMER IODINE 40 GM TUBE TP SCH (09:52)
[2018-04-20] MEDS: HYDROGEL DRESSING 90 GM TUBE TP SCH (09:53)
[2018-04-20] MEDS: Z GUARD REMEDY 2 OZ OINT TP PRN (09:53)
[2018-04-20] MEDS: Z GUARD REMEDY 2 OZ OINT TP SCH (09:56)
[2018-04-20] MEDS: QUETIAPINE FUMARATE 25 MG TABLET PO SCH ×3 (10:05→21:23)
[2018-04-20] MEDS: INSULIN REGULAR, HUMAN 100 UNIT/ML 3 ML VIAL SQ PRN ×3 (12:46→21:33)
[2018-04-20] MEDS: CEFEPIME 1 GM in IV D5W 50 ML IV SCH (17:52)
[2018-04-20] MEDS: RIVAROXABAN 10 MG TABLET PO SCH (17:55)
[2018-04-20] MEDS: FLUCONAZOLE (100 MG) 100 MG TABLET PO SCH (20:30)
[2018-04-21] VITALS: BP_SYST 154; BP_SYST 170; BP_DIAS 53; BP_DIAS 71
[2018-04-21] MEDS: VANCOMYCIN 0.75 GM in IV D5W 250 ML IV SCH ×2 (03:40→14:57)
[2018-04-21 04:00] VITALS: BP 170/71
[2018-04-21] MEDS: MORPHINE SULFATE INJ 4 MG/ML DISP.SYRIN IV PRN (05:47)
[2018-04-21] MEDS ORDERED: CLONIDINE HCL 0.1 MG TABLET PO PRN (06:30)
[2018-04-21 06:47] LABS: BASOPHILS % (AUTO) 0.5 % (0.0-2.0); EOSINOPHILS % (AUTO) 6.6 % (0.0-6.0); HEMATOCRIT 31 % (33-45); HEMOGLOBIN 10.5 g/dL (11.5-14.8); LYMPHOCYTES # (AUTO) 2.4 /CMM (0.8-4.8); LYMPHOCYTES % (AUTO) 28.8 % (20.0-44.0); MEAN CORPUSCULAR HEMOGLOBIN 26 PG (26.0-33.0); MEAN CORPUSCULAR HGB CONC 33 g/dl (31.0-36.0); MEAN CORPUSCULAR VOLUME 79 fL (82-100); MONOCYTES # (AUTO) 0.6 /CMM (0.1-1.30); MONOCYTES % (AUTO) 7.6 % (2.0-12.0); NEUTROPHILS # (AUTO) 4.7 /CMM (1.8-8.9); NEUTROPHILS % (AUTO) 56.5 % (43.0-81.0); PLATELET COUNT (AUTO) 335 /CMM (150-450); RDW COEFFICIENT OF VARIATION 17.3 (11.5-15.0); RED BLOOD CELL COUNT(AUTO) 3.97 MIL/uL (4.0-5.2); WHITE BLOOD COUNT (AUTO) 8.3 K/uL (4.3-11.0)
[2018-04-21 07:08] LABS: CALCIUM, SERUM 9.3 mg/dL (8.5-10.1); CARBON DIOXIDE 31 mmol/L (21-32); CHLORIDE 109 mmol/L (98-107); CREATININE 0.4 mg/dL (0.6-1.3); GLUCOSE 122 mg/dL (74-106); SODIUM SERUM 145 mmol/L (136-145); UREA NITROGEN, BLOOD 8 mg/dL (7-18)
[2018-04-21 07:20] LABS: POTASSIUM 2.6 mmol/L (3.5-5.1)
[2018-04-21 08:00] VITALS: BP 165/76
[2018-04-21] MEDS: QUETIAPINE FUMARATE 25 MG TABLET PO SCH ×3 (08:29→21:24)
[2018-04-21] MEDS: ASCORBIC ACID 500 MG TABLET PO SCH (08:29)
[2018-04-21] MEDS: AMLODIPINE BESYLATE 5 MG TABLET PO SCH (08:30)
[2018-04-21] MEDS: K PHOS NEUTRAL 250 MG TABLET PO SCH ×4 (08:30→21:24)
[2018-04-21] MEDS ORDERED: POTASSIUM CHLORIDE 20 MEQ POWDER PACKET PO ONE (08:30)
[2018-04-21] MEDS: LACTOBACILLUS RHAMNOSUS GG 1 EACH CAP.SPRINK PO SCH (08:30)
[2018-04-21] MEDS: FOLIC ACID 1 MG TABLET PO SCH (08:30)
[2018-04-21] MEDS: PANTOPRAZOLE 40 MG VIAL IV SCH (08:31)
[2018-04-21] MEDS: BLOOD SUGAR DIAGNOSTIC 1 EACH STRIP IN SCH ×4 (08:39→21:24)
[2018-04-21] MEDS: INSULIN REGULAR, HUMAN 100 UNIT/ML 3 ML VIAL SQ PRN ×4 (08:43→21:42)
[2018-04-21] MEDS: POTASSIUM CL. PREMIX PERIPHER. 50 ML IV SCH ×4 (08:44→12:29)
[2018-04-21] MEDS: THIAMINE HCL 100 MG TABLET PO SCH (08:45)
[2018-04-21] MEDS: Z GUARD REMEDY 2 OZ OINT TP PRN (08:46)
[2018-04-21] MEDS: CADEXOMER IODINE 40 GM TUBE TP SCH (08:46)
[2018-04-21] MEDS: Z GUARD REMEDY 2 OZ OINT TP SCH (08:47)
[2018-04-21] MEDS: HYDROGEL DRESSING 90 GM TUBE TP SCH (08:47)
[2018-04-21 12:00] VITALS: BP 145/61
[2018-04-21] MEDS ORDERED: AMLODIPINE BESYLATE 5 MG TABLET PO ONE (12:30)
[2018-04-21 16:00] VITALS: BP 144/78
[2018-04-21] MEDS: RIVAROXABAN 10 MG TABLET PO SCH (17:30)
[2018-04-21] MEDS: CEFEPIME 1 GM in IV D5W 50 ML IV SCH (17:42)
[2018-04-21 20:00] VITALS: BP 144/66
[2018-04-21] MEDS: FLUCONAZOLE (100 MG) 100 MG TABLET PO SCH (21:24)
[2018-04-22] VITALS: BP 144/66
[2018-04-22] MEDS: VANCOMYCIN 0.75 GM in IV D5W 250 ML IV SCH ×2 (02:54→14:38)
[2018-04-22 04:00] VITALS: BP 156/72
[2018-04-22 05:02] VITALS: BP 127/76
[2018-04-22 07:08] LABS: CALCIUM, SERUM 9.3 mg/dL (8.5-10.1); CARBON DIOXIDE 30 mmol/L (21-32); CHLORIDE 108 mmol/L (98-107); CREATININE 0.4 mg/dL (0.6-1.3); GLUCOSE 119 mg/dL (74-106); SODIUM SERUM 145 mmol/L (136-145); UREA NITROGEN, BLOOD 9 mg/dL (7-18)
[2018-04-22] MEDS: BLOOD SUGAR DIAGNOSTIC 1 EACH STRIP IN SCH ×4 (07:52→22:18)
[2018-04-22 08:00] VITALS: BP 145/74
[2018-04-22] MEDS: LACTOBACILLUS RHAMNOSUS GG 1 EACH CAP.SPRINK PO SCH (08:32)
[2018-04-22] MEDS: FOLIC ACID 1 MG TABLET PO SCH (08:33)
[2018-04-22] MEDS: K PHOS NEUTRAL 250 MG TABLET PO SCH ×4 (08:33→20:56)
[2018-04-22] MEDS: THIAMINE HCL 100 MG TABLET PO SCH (08:34)
[2018-04-22] MEDS: QUETIAPINE FUMARATE 25 MG TABLET PO SCH ×3 (08:34→22:17)
[2018-04-22] MEDS: AMLODIPINE BESYLATE 5 MG TABLET PO SCH (08:34)
[2018-04-22] MEDS: ASCORBIC ACID 500 MG TABLET PO SCH (08:35)
[2018-04-22] MEDS: Z GUARD REMEDY 2 OZ OINT TP SCH (08:41)
[2018-04-22] MEDS: PANTOPRAZOLE 40 MG VIAL IV SCH (08:41)
[2018-04-22] MEDS: HYDROGEL DRESSING 90 GM TUBE TP SCH (08:41)
[2018-04-22] MEDS: CADEXOMER IODINE 40 GM TUBE TP SCH (09:00)
[2018-04-22] MEDS: POTASSIUM CHLORIDE 20 MEQ TAB.PRT.SR PO SCH ×3 (10:20→12:11)
[2018-04-22 16:00] VITALS: BP 151/72
[2018-04-22] MEDS: RIVAROXABAN 10 MG TABLET PO SCH (16:26)
[2018-04-22] MEDS: INSULIN REGULAR, HUMAN 100 UNIT/ML 3 ML VIAL SQ PRN ×2 (16:48→22:27)
[2018-04-22] MEDS: CEFEPIME 1 GM in IV D5W 50 ML IV SCH (17:27)
[2018-04-22 20:00] VITALS: BP_SYST 126; BP_SYST 151; BP_DIAS 75; BP_DIAS 90
[2018-04-22] MEDS: FLUCONAZOLE (100 MG) 100 MG TABLET PO SCH (20:56)
[2018-04-23] MEDS: VANCOMYCIN 0.75 GM in IV D5W 250 ML IV SCH ×2 (03:39→14:20)
[2018-04-23 04:00] VITALS: BP_SYST 136; BP_SYST 139; BP_DIAS 66
[2018-04-23] MEDS: HYDROGEL DRESSING 90 GM TUBE TP SCH (05:23)
[2018-04-23] MEDS: CADEXOMER IODINE 40 GM TUBE TP SCH (05:23)
[2018-04-23] MEDS: Z GUARD REMEDY 2 OZ OINT TP PRN (05:24)
[2018-04-23 07:09] LABS: CALCIUM, SERUM 9.4 mg/dL (8.5-10.1); CARBON DIOXIDE 28 mmol/L (21-32); CHLORIDE 109 mmol/L (98-107); CREATININE 0.4 mg/dL (0.6-1.3); GLUCOSE 114 mg/dL (74-106); MAGNESIUM 1.6 mg/dL (1.8-2.4); POTASSIUM 3.4 mmol/L (3.5-5.1); SODIUM SERUM 144 mmol/L (136-145); UREA NITROGEN, BLOOD 9 mg/dL (7-18)
[2018-04-23 07:46] LABS: PHOSPHORUS 3.2 mg/dL (2.5-4.9)
[2018-04-23 08:00] VITALS: BP 174/72
[2018-04-23 08:21] LABS: BASOPHILS % (AUTO) 0.4 % (0.0-2.0); EOSINOPHILS % (AUTO) 4.8 % (0.0-6.0); HEMATOCRIT 31 % (33-45); HEMOGLOBIN 10.1 g/dL (11.5-14.8); LYMPHOCYTES # (AUTO) 1.8 /CMM (0.8-4.8); LYMPHOCYTES % (AUTO) 19.8 % (20.0-44.0); MEAN CORPUSCULAR HEMOGLOBIN 26 PG (26.0-33.0); MEAN CORPUSCULAR HGB CONC 33 g/dl (31.0-36.0); MEAN CORPUSCULAR VOLUME 80 fL (82-100); MONOCYTES # (AUTO) 0.8 /CMM (0.1-1.30); MONOCYTES % (AUTO) 8.1 % (2.0-12.0); NEUTROPHILS # (AUTO) 6.2 /CMM (1.8-8.9); NEUTROPHILS % (AUTO) 66.9 % (43.0-81.0); PLATELET COUNT (AUTO) 338 /CMM (150-450); RDW COEFFICIENT OF VARIATION 17.8 (11.5-15.0); RED BLOOD CELL COUNT(AUTO) 3.88 MIL/uL (4.0-5.2); WHITE BLOOD COUNT (AUTO) 9.3 K/uL (4.3-11.0)
[2018-04-23] MEDS: THIAMINE HCL 100 MG TABLET PO SCH (08:22)
[2018-04-23] MEDS: QUETIAPINE FUMARATE 25 MG TABLET PO SCH ×3 (08:22→21:05)
[2018-04-23] MEDS: AMLODIPINE BESYLATE 5 MG TABLET PO SCH (08:22)
[2018-04-23] MEDS: ASCORBIC ACID 500 MG TABLET PO SCH (08:23)
[2018-04-23] MEDS: K PHOS NEUTRAL 250 MG TABLET PO SCH ×4 (08:23→21:01)
[2018-04-23] MEDS: FOLIC ACID 1 MG TABLET PO SCH (08:23)
[2018-04-23] MEDS: LACTOBACILLUS RHAMNOSUS GG 1 EACH CAP.SPRINK PO SCH (08:23)
[2018-04-23] MEDS: BLOOD SUGAR DIAGNOSTIC 1 EACH STRIP IN SCH ×4 (08:27→21:01)
[2018-04-23] MEDS: PANTOPRAZOLE 40 MG VIAL IV SCH (08:28)
[2018-04-23] MEDS: Z GUARD REMEDY 2 OZ OINT TP SCH (08:28)
[2018-04-23] MEDS: Magnesium 1GM/D5W 100ML PREMIX 100 ML IV SCH ×2 (10:18→12:23)
[2018-04-23] MEDS ORDERED: POTASSIUM CHLORIDE 20 MEQ TAB.PRT.SR PO ONE (10:30)
[2018-04-23] MEDS: INSULIN REGULAR, HUMAN 100 UNIT/ML 3 ML VIAL SQ PRN ×2 (12:30→21:21)
[2018-04-23 16:00] VITALS: BP 141/76
[2018-04-23] MEDS: RIVAROXABAN 10 MG TABLET PO SCH (17:04)
[2018-04-23] MEDS: CEFEPIME 1 GM in IV D5W 50 ML IV SCH (17:06)
[2018-04-23 20:00] VITALS: BP 129/55
[2018-04-23] MEDS: FLUCONAZOLE (100 MG) 100 MG TABLET PO SCH (21:00)
[2018-04-24] MEDS: VANCOMYCIN 0.75 GM in IV D5W 250 ML IV SCH (03:23)
[2018-04-24 04:00] VITALS: BP 158/68
[2018-04-24] MEDS: HYDROGEL DRESSING 90 GM TUBE TP SCH (05:15)
[2018-04-24] MEDS: CADEXOMER IODINE 40 GM TUBE TP SCH (05:16)
[2018-04-24] MEDS: Z GUARD REMEDY 2 OZ OINT TP PRN ×2 (05:16→08:51)
[2018-04-24 07:04] LABS: CALCIUM, SERUM 9.5 mg/dL (8.5-10.1); CARBON DIOXIDE 32 mmol/L (21-32); CHLORIDE 111 mmol/L (98-107); CREATININE 0.5 mg/dL (0.6-1.3); GLUCOSE 116 mg/dL (74-106); MAGNESIUM 2.1 mg/dL (1.8-2.4); POTASSIUM 3.1 mmol/L (3.5-5.1); SODIUM SERUM 148 mmol/L (136-145); UREA NITROGEN, BLOOD 10 mg/dL (7-18)
[2018-04-24 08:00] VITALS: BP 127/61
[2018-04-24] MEDS: ASCORBIC ACID 500 MG TABLET PO SCH (08:49)
[2018-04-24] MEDS: BLOOD SUGAR DIAGNOSTIC 1 EACH STRIP IN SCH ×4 (08:49→21:13)
[2018-04-24] MEDS: PANTOPRAZOLE 40 MG VIAL IV SCH (08:49)
[2018-04-24] MEDS: THIAMINE HCL 100 MG TABLET PO SCH (08:49)
[2018-04-24] MEDS: K PHOS NEUTRAL 250 MG TABLET PO SCH ×4 (08:49→20:55)
[2018-04-24] MEDS: QUETIAPINE FUMARATE 25 MG TABLET PO SCH ×3 (08:49→21:05)
[2018-04-24] MEDS: LACTOBACILLUS RHAMNOSUS GG 1 EACH CAP.SPRINK PO SCH (08:50)
[2018-04-24] MEDS: AMLODIPINE BESYLATE 5 MG TABLET PO SCH (08:50)
[2018-04-24] MEDS: FOLIC ACID 1 MG TABLET PO SCH (08:50)
[2018-04-24] MEDS: INSULIN REGULAR, HUMAN 100 UNIT/ML 3 ML VIAL SQ PRN ×3 (08:51→21:16)
[2018-04-24] MEDS: Z GUARD REMEDY 2 OZ OINT TP SCH (08:52)
[2018-04-24] MEDS: POTASSIUM CHLORIDE 20 MEQ TAB.PRT.SR PO SCH ×2 (10:07→11:36)
[2018-04-24 12:00] VITALS: BP 132/60
[2018-04-24 13:00] VITALS: BP 132/60
[2018-04-24 14:16] LABS: BASOPHILS # (AUTO) 0.1 /CMM (0.0-0.2); BASOPHILS % (AUTO) 0.7 % (0.0-2.0); EOSINOPHILS % (AUTO) 4.8 % (0.0-6.0); HEMATOCRIT 29 % (33-45); HEMOGLOBIN 9.4 g/dL (11.5-14.8); LYMPHOCYTES # (AUTO) 1.9 /CMM (0.8-4.8); LYMPHOCYTES % (AUTO) 24.9 % (20.0-44.0); MEAN CORPUSCULAR HEMOGLOBIN 26 PG (26.0-33.0); MEAN CORPUSCULAR HGB CONC 32 g/dl (31.0-36.0); MEAN CORPUSCULAR VOLUME 80 fL (82-100); MONOCYTES # (AUTO) 0.5 /CMM (0.1-1.30); NEUTROPHILS # (AUTO) 4.7 /CMM (1.8-8.9); NEUTROPHILS % (AUTO) 62.6 % (43.0-81.0); PLATELET COUNT (AUTO) 317 /CMM (150-450); RDW COEFFICIENT OF VARIATION 17.7 (11.5-15.0); RED BLOOD CELL COUNT(AUTO) 3.64 MIL/uL (4.0-5.2); WHITE BLOOD COUNT (AUTO) 7.5 K/uL (4.3-11.0)
[2018-04-24 16:00] VITALS: BP 141/70
[2018-04-24] MEDS: RIVAROXABAN 10 MG TABLET PO SCH (17:00)
[2018-04-24] MEDS: CEFEPIME 1 GM in IV D5W 50 ML IV SCH (17:01)
[2018-04-24] MEDS: FLUCONAZOLE (100 MG) 100 MG TABLET PO SCH (20:55)
[2018-04-24 21:00] VITALS: BP 135/71
[2018-04-24] MEDS: VANCOMYCIN 0.75 GM in IV NS 0.9% 250 ML IV SCH (21:00)
[2018-04-25 04:00] VITALS: BP 157/68
[2018-04-25 05:19] VITALS: BP 157/68
[2018-04-25 07:09] LABS: CALCIUM, SERUM 9.5 mg/dL (8.5-10.1); CARBON DIOXIDE 31 mmol/L (21-32); CHLORIDE 112 mmol/L (98-107); CREATININE 0.5 mg/dL (0.6-1.3); GLUCOSE 112 mg/dL (74-106); SODIUM SERUM 149 mmol/L (136-145); UREA NITROGEN, BLOOD 10 mg/dL (7-18)
[2018-04-25] MEDS: BLOOD SUGAR DIAGNOSTIC 1 EACH STRIP IN SCH ×4 (08:39→21:28)
[2018-04-25] MEDS: PANTOPRAZOLE 40 MG VIAL IV SCH (09:15)
[2018-04-25] MEDS: K PHOS NEUTRAL 250 MG TABLET PO SCH ×4 (09:16→20:32)
[2018-04-25] MEDS: FOLIC ACID 1 MG TABLET PO SCH (09:16)
[2018-04-25] MEDS: THIAMINE HCL 100 MG TABLET PO SCH (09:16)
[2018-04-25] MEDS: ASCORBIC ACID 500 MG TABLET PO SCH (09:16)
[2018-04-25] MEDS: LACTOBACILLUS RHAMNOSUS GG 1 EACH CAP.SPRINK PO SCH (09:16)
[2018-04-25] MEDS: AMLODIPINE BESYLATE 5 MG TABLET PO SCH (09:17)
[2018-04-25] MEDS: QUETIAPINE FUMARATE 25 MG TABLET PO SCH ×3 (09:18→21:34)
[2018-04-25] MEDS: CADEXOMER IODINE 40 GM TUBE TP SCH (09:27)
[2018-04-25] MEDS: Z GUARD REMEDY 2 OZ OINT TP SCH (09:27)
[2018-04-25] MEDS: HYDROGEL DRESSING 90 GM TUBE TP SCH (09:27)
[2018-04-25] MEDS: POTASSIUM CHLORIDE 20 MEQ TAB.PRT.SR PO SCH ×3 (11:23→13:32)
[2018-04-25 13:00] VITALS: BP 152/78
[2018-04-25] MEDS: INSULIN REGULAR, HUMAN 100 UNIT/ML 3 ML VIAL SQ PRN ×3 (13:30→21:32)
[2018-04-25] MEDS: VANCOMYCIN 0.75 GM in IV NS 0.9% 250 ML IV SCH (15:36)
[2018-04-25] MEDS: RIVAROXABAN 10 MG TABLET PO SCH (16:25)
[2018-04-25] MEDS: CEFEPIME 1 GM in IV D5W 50 ML IV SCH (17:41)
[2018-04-25 20:00] VITALS: BP_SYST 127; BP_SYST 128; BP_DIAS 57; BP_DIAS 58
[2018-04-25] MEDS: FLUCONAZOLE (100 MG) 100 MG TABLET PO SCH (20:31)
[2018-04-25 21:00] VITALS: BP 128/57
[2018-04-26] VITALS: BP_SYST 128; BP_SYST 143; BP_DIAS 62; BP_DIAS 67
[2018-04-26 04:00] VITALS: BP 150/67
[2018-04-26] MEDS: BLOOD SUGAR DIAGNOSTIC 1 EACH STRIP IN SCH ×4 (07:55→21:01)
[2018-04-26 08:00] VITALS: BP 151/76
[2018-04-26 08:08] LABS: BASOPHILS % (AUTO) 0.7 % (0.0-2.0); EOSINOPHILS % (AUTO) 4.4 % (0.0-6.0); HEMATOCRIT 29 % (33-45); HEMOGLOBIN 9.7 g/dL (11.5-14.8); LYMPHOCYTES # (AUTO) 1.9 /CMM (0.8-4.8); LYMPHOCYTES % (AUTO) 27.3 % (20.0-44.0); MEAN CORPUSCULAR HEMOGLOBIN 27 PG (26.0-33.0); MEAN CORPUSCULAR HGB CONC 33 g/dl (31.0-36.0); MEAN CORPUSCULAR VOLUME 81 fL (82-100); MONOCYTES # (AUTO) 0.5 /CMM (0.1-1.30); MONOCYTES % (AUTO) 7.1 % (2.0-12.0); NEUTROPHILS # (AUTO) 4.3 /CMM (1.8-8.9); NEUTROPHILS % (AUTO) 60.5 % (43.0-81.0); PLATELET COUNT (AUTO) 329 /CMM (150-450); RED BLOOD CELL COUNT(AUTO) 3.61 MIL/uL (4.0-5.2); WHITE BLOOD COUNT (AUTO) 7.1 K/uL (4.3-11.0)
[2018-04-26 08:21] LABS: CALCIUM, SERUM 9.8 mg/dL (8.5-10.1); CARBON DIOXIDE 31 mmol/L (21-32); CHLORIDE 114 mmol/L (98-107); CREATININE 0.5 mg/dL (0.6-1.3); GLUCOSE 139 mg/dL (74-106); INR 1.23 (0.87-1.13); POTASSIUM 3.8 mmol/L (3.5-5.1); SODIUM SERUM 150 mmol/L (136-145); UREA NITROGEN, BLOOD 11 mg/dL (7-18)
[2018-04-26] MEDS: PANTOPRAZOLE 40 MG VIAL IV SCH (09:11)
[2018-04-26] MEDS: FOLIC ACID 1 MG TABLET PO SCH (09:12)
[2018-04-26] MEDS: K PHOS NEUTRAL 250 MG TABLET PO SCH ×4 (09:12→20:46)
[2018-04-26] MEDS: ASCORBIC ACID 500 MG TABLET PO SCH (09:12)
[2018-04-26] MEDS: QUETIAPINE FUMARATE 25 MG TABLET PO SCH ×3 (09:12→21:09)
[2018-04-26] MEDS: LACTOBACILLUS RHAMNOSUS GG 1 EACH CAP.SPRINK PO SCH (09:12)
[2018-04-26] MEDS: THIAMINE HCL 100 MG TABLET PO SCH (09:12)
[2018-04-26] MEDS: VANCOMYCIN 0.75 GM in IV NS 0.9% 250 ML IV SCH (09:13)
[2018-04-26] MEDS: AMLODIPINE BESYLATE 5 MG TABLET PO SCH (09:13)
[2018-04-26] MEDS: Z GUARD REMEDY 2 OZ OINT TP SCH (09:14)
[2018-04-26] MEDS: HYDROGEL DRESSING 90 GM TUBE TP SCH (09:14)
[2018-04-26] MEDS: CADEXOMER IODINE 40 GM TUBE TP SCH (09:18)
[2018-04-26] MEDS: INSULIN REGULAR, HUMAN 100 UNIT/ML 3 ML VIAL SQ PRN ×3 (11:57→21:07)
[2018-04-26 16:00] VITALS: BP 152/68
[2018-04-26] MEDS: RIVAROXABAN 10 MG TABLET PO SCH (16:37)
[2018-04-26] MEDS: CEFEPIME 1 GM in IV D5W 50 ML IV SCH (17:13)
[2018-04-26 21:00] VITALS: BP 127/66
[2018-04-26] MEDS ORDERED: VANCOMYCIN 500 MG in IV NS 0.9% 100 ML IV SCH (21:00)
[2018-04-27 04:00] VITALS: BP 139/76
[2018-04-27 05:02] VITALS: BP 139/73
[2018-04-27 06:39] LABS: BASOPHILS # (AUTO) 0.1 /CMM (0.0-0.2); BASOPHILS % (AUTO) 0.8 % (0.0-2.0); EOSINOPHILS % (AUTO) 4.5 % (0.0-6.0); HEMATOCRIT 28 % (33-45); HEMOGLOBIN 9.5 g/dL (11.5-14.8); LYMPHOCYTES # (AUTO) 2.1 /CMM (0.8-4.8); LYMPHOCYTES % (AUTO) 27.5 % (20.0-44.0); MEAN CORPUSCULAR HEMOGLOBIN 27 PG (26.0-33.0); MEAN CORPUSCULAR HGB CONC 34 g/dl (31.0-36.0); MEAN CORPUSCULAR VOLUME 79 fL (82-100); MONOCYTES # (AUTO) 0.5 /CMM (0.1-1.30); MONOCYTES % (AUTO) 6.9 % (2.0-12.0); NEUTROPHILS # (AUTO) 4.5 /CMM (1.8-8.9); NEUTROPHILS % (AUTO) 60.3 % (43.0-81.0); PLATELET COUNT (AUTO) 360 /CMM (150-450); RDW COEFFICIENT OF VARIATION 16.8 (11.5-15.0); RED BLOOD CELL COUNT(AUTO) 3.55 MIL/uL (4.0-5.2); WHITE BLOOD COUNT (AUTO) 7.5 K/uL (4.3-11.0)
[2018-04-27 06:59] LABS: CALCIUM, SERUM 9.4 mg/dL (8.5-10.1); CARBON DIOXIDE 30 mmol/L (21-32); CHLORIDE 112 mmol/L (98-107); CREATININE 0.5 mg/dL (0.6-1.3); GLUCOSE 138 mg/dL (74-106); SODIUM SERUM 153 mmol/L (136-145); UREA NITROGEN, BLOOD 12 mg/dL (7-18)
[2018-04-27 07:35] LABS: POTASSIUM 2.8 mmol/L (3.5-5.1)
[2018-04-27] MEDS: BLOOD SUGAR DIAGNOSTIC 1 EACH STRIP IN SCH ×2 (07:45→12:04)
[2018-04-27 08:00] VITALS: BP_SYST 162; BP_SYST 164; BP_DIAS 72; BP_DIAS 74
[2018-04-27] MEDS: PANTOPRAZOLE 40 MG VIAL IV SCH (08:20)
[2018-04-27] MEDS: LACTOBACILLUS RHAMNOSUS GG 1 EACH CAP.SPRINK PO SCH (08:20)
[2018-04-27] MEDS: QUETIAPINE FUMARATE 25 MG TABLET PO SCH (08:20)
[2018-04-27 08:21] VITALS: BP 162/72
[2018-04-27] MEDS: AMLODIPINE BESYLATE 5 MG TABLET PO SCH (08:21)
[2018-04-27] MEDS: K PHOS NEUTRAL 250 MG TABLET PO SCH ×2 (08:21→12:15)
[2018-04-27] MEDS: FOLIC ACID 1 MG TABLET PO SCH (08:21)
[2018-04-27] MEDS: THIAMINE HCL 100 MG TABLET PO SCH (08:21)
[2018-04-27] MEDS: ASCORBIC ACID 500 MG TABLET PO SCH (08:21)
[2018-04-27] MEDS: CADEXOMER IODINE 40 GM TUBE TP SCH (08:23)
[2018-04-27] MEDS: HYDROGEL DRESSING 90 GM TUBE TP SCH (08:23)
[2018-04-27] MEDS: INSULIN REGULAR, HUMAN 100 UNIT/ML 3 ML VIAL SQ PRN ×2 (08:36→12:24)
[2018-04-27] MEDS: POTASSIUM CL. PREMIX PERIPHER. 50 ML IV SCH ×3 (10:57→13:20)
[2018-04-27] MEDS ORDERED: LEVO500T75 PO (12:36)
[2018-04-27] MEDS ORDERED: RIVA10TA PO (13:07)
[2018-04-27] MEDS: POTASSIUM CHLORIDE 20 MEQ TAB.PRT.SR PO SCH ×3 (14:21→14:53)
== END 2018-04-27 15:08 | disposition home or self-care (01) | DRG 871 ==
LOC: ER 14:43 → TELE 17:34 → MED 04-15 08:45 → ICU 04-15 12:29 → TELE1 04-18 16:58 → MEDSG1 04-21 12:01
PROVIDERS: ADMIT Registered Nurse; ATTEND Registered Nurse
PROC: 30233N1 Transfusion of Nonautologous Red Blood Cells into Peripheral Vein, Percutaneous Approach (ICD-10-PCS; 2018-04-15)
PROC: 05H533Z Insertion of Infusion Device into Right Subclavian Vein, Percutaneous Approach (ICD-10-PCS; principal; 2018-04-18)
PROC: B546ZZA Ultrasonography of Right Subclavian Vein, Guidance (ICD-10-PCS; 2018-04-18)
DX: A41.9 Sepsis, unspecified organism (principal); I21.A1 Myocardial infarction type 2; I96 Gangrene, not elsewhere classified; L89.153 Pressure ulcer of sacral region, stage 3; E46 Unspecified protein-calorie malnutrition; N17.9 Acute kidney failure, unspecified; J18.9 Pneumonia, unspecified organism; G92 Toxic encephalopathy; R53.2 Functional quadriplegia; E11.52 Type 2 diabetes mellitus with diabetic peripheral angiopathy with gangrene; E87.0 Hyperosmolality and hypernatremia; E87.2 Acidosis; N39.0 Urinary tract infection, site not specified; F03.91 Unspecified dementia, unspecified severity, with behavioral disturbance; Z68.1 Body mass index [BMI] 19.9 or less, adult; I11.0 Hypertensive heart disease with heart failure; D52.9 Folate deficiency anemia, unspecified; I50.9 Heart failure, unspecified; E83.42 Hypomagnesemia; I25.10 Atherosclerotic heart disease of native coronary artery without angina pectoris; R65.20 Severe sepsis without septic shock; B96.89 Other specified bacterial agents as the cause of diseases classified elsewhere; Z16.12 Extended spectrum beta lactamase (ESBL) resistance; E86.0 Dehydration; E83.52 Hypercalcemia; I48.2 Chronic atrial fibrillation; E87.6 Hypokalemia; E78.5 Hyperlipidemia, unspecified; Z89.611 Acquired absence of right leg above knee; E11.621 Type 2 diabetes mellitus with foot ulcer; L97.524 Non-pressure chronic ulcer of other part of left foot with necrosis of bone; L89.629 Pressure ulcer of left heel, unspecified stage; F29 Unspecified psychosis not due to a substance or known physiological condition; Z86.73 Personal history of transient ischemic attack (TIA), and cerebral infarction without residual deficits; Z79.01 Long term (current) use of anticoagulants; E11.42 Type 2 diabetes mellitus with diabetic polyneuropathy
CPT/HCPCS: 36415; 36569; 70450-TC; 70551-TC; 71045-TC; 73630-TC; 74018; 80048-TC; 80053-TC; 80061-TC; 80076-TC; 80202-TC; 81000-TC; 82728-TC; 82962-TC; 83540-TC; 83605-TC; 83735-TC; 83880; 84100-TC; 84132-TC; 84295-TC; 84439-TC; 84443-TC; 84484-TC; 85025-TC; 85610-TC; 85730-TC; 86850-TC; 87040-TC; 87070-TC; 87081-TC; 87086-TC; 87186-TC; 93307-TC; 94799-TC; A4606; A6248; A6402; A6403; A9563; C9113; J0692; J1815; J2185; J2270; J2543; J3370; J3430; J3475; J3480; J3490; J7030; J7040; J7050; J7060; P9017-BL; Z7610

== ENCOUNTER 2019-05-30 17:15 | Inpatient (IN) | payer MEDICARE ==
[~2019-05-30] VITALS: Ht 167.6 cm; Wt 45.4 kg
[~2019-05-30 17:15] MED LIST: ACET-868 PO; AMLO10TA7 PO; ASCO500T9 PO; ATOR40TA PO; FOLI1TAB16 PO; HYDR-4077 PO; LACT1CAP61 PO; LEVO500T75 PO; LISI40TA4 PO; QUET25TA PO; RIVA10TA PO; THIA100T13 PO
--- NOTE | 2019-05-30 17:25 | NUR ---
PT [id number] FRM B&C FOR NECROTIC L FOOT FOR POSSIBLE AMPUTATION, PT IS AAOX2, NOT IN RESPIRATORY DISTRESS, V/S STABLE, KEPT RESTED AND COMFORTABLE, WILL CONTINUE TO MONITOR.
[2019-05-30] MEDS ORDERED: IV NS 0.9% 1,000 ML BAG IV ONE (17:30)
[2019-05-30 17:45] LABS: BASOPHILS % (AUTO) 0.3 % (0.0-2.0); HEMATOCRIT 32 % (33-45); HEMOGLOBIN 10.4 g/dL (11.5-14.8); LYMPHOCYTES # (AUTO) 1.2 /CMM (0.8-4.8); LYMPHOCYTES % (AUTO) 11.8 % (20.0-44.0); MEAN CORPUSCULAR HGB CONC 32 g/dl (31.0-36.0); MEAN CORPUSCULAR VOLUME 84 fL (82-100); MONOCYTES # (AUTO) 0.8 /CMM (0.1-1.30); MONOCYTES % (AUTO) 7.8 % (2.0-12.0); NEUTROPHILS # (AUTO) 8.3 /CMM (1.8-8.9); NEUTROPHILS % (AUTO) 80.1 % (43.0-81.0); PLATELET COUNT (AUTO) 277 /CMM (150-450); RED BLOOD CELL COUNT(AUTO) 3.82 MIL/uL (4.0-5.2); WHITE BLOOD COUNT (AUTO) 10.3 K/uL (4.3-11.0)
--- NOTE | 2019-05-30 17:50 | NUR ---
IV LINE ESTABLISHED, BLOOD DRAWNED AND SENT TO LAB.
[2019-05-30] MEDS ORDERED: GLIP5TAB3 PO (17:51)
[2019-05-30] MEDS ORDERED: GABA-534 PO (17:51)
[2019-05-30] MEDS ORDERED: DOCU-141 PO (17:51)
[2019-05-30] MEDS ORDERED: TRAM50TA2 PO (17:51)
[2019-05-30] MEDS ORDERED: AMOX250C PO (17:51)
[2019-05-30] MEDS ORDERED: SULF473O3 PO (17:51)
[2019-05-30] MEDS ORDERED: ESZO3TAB27 PO (17:51)
[2019-05-30] MEDS ORDERED: PROM118S4 PO (17:51)
--- NOTE | 2019-05-30 17:52 | NUR ---
PERIPHERAL EDP EQUIPMENT OPERATOR AT BEDSIDE FOR XRAY.
[2019-05-30 17:53] LABS: CALCIUM, SERUM 10.7 mg/dL (8.5-10.1); CARBON DIOXIDE 24 mmol/L (21-32); CHLORIDE 113 mmol/L (98-107); CREATININE 0.8 mg/dL (0.6-1.3); GLUCOSE 347 mg/dL (74-106); POTASSIUM 3.7 mmol/L (3.5-5.1); SODIUM SERUM 146 mmol/L (136-145); UREA NITROGEN, BLOOD 35 mg/dL (7-18)
--- NOTE | 2019-05-30 17:54 | NUR ---
URINE SPECIMEN COLLECTED AND SENT TO LAB.
[2019-05-30 17:59] LABS: ALANINE AMINOTRANSFERASE 23 U/L (12-78); ALBUMIN 2.2 g/dL (3.4-5.0); ALKALINE PHOSPHATASE 97 U/L (46-116); ASPARTATE AMINOTRANSFERASE 17 U/L (15-37); BILIRUBIN,TOTAL 0.2 mg/dL (0.2-1.0); TOTAL PROTEIN, SERUM 7.7 g/dL (6.4-8.2)
[2019-05-30] MEDS ORDERED: PIPERACILLIN /TAZOBACTAM 3.375 G in IV D5W 50 ML IV ONE (18:00)
[2019-05-30] MEDS ORDERED: VANCOMYCIN 1 GM in IV D5W 250 ML IV ONE (18:00)
[2019-05-30 18:12] LABS: APPEARANCE,URINE Turbid (CLEAR); BILIRUBIN,URINE Negative (NEGATIVE); BLOOD, URINE Moderate Ery/uL (NEGATIVE); COLOR,URINE Yellow (YELLOW); KETONES,URINE Negative (NEGATIVE); LEUKOCYTE ESTERASE ,URINE Large (NEGATIVE); NITRITE, URINE Negative (NEGATIVE); PROTEIN,URINE 100 mg/dl (NEGATIVE); UGLUCOSE 500 MG/DL mg/dL (NEGATIVE); UROBILINOGEN,URINE 0.2 EU/dL (0.2)
--- NOTE | 2019-05-30 19:14 | NUR ---
LAYING IN BED, AWAKE AND CONFUSED. RECEIVING VANCO. IV SITE C/I . VSS. ON CONT MONITORING.
[2019-05-30 19:20] LABS: SQUAMOUS EPITHELIAL CELL,UR Few /HPF (None Seen); WBC,URINE TOO NUMEROUS TO COUN /HPF (0-3); YEAST,URINE Hyphal filaments /HPF (None Seen)
[2019-05-30 19:21] LABS: BACTERIA,URINE Moderate /HPF (None Seen)
--- NOTE | 2019-05-30 20:01 | NUR ---
CALLED NURSING SUP FOR BED. WILL CALL BACK ONCE AVAILABLE.
--- NOTE | 2019-05-30 20:23 | NUR ---
REPORT GIVEN TO FILOMENA SOUSA.
[2019-05-30 20:30] VITALS: BP 162/77
--- NOTE | 2019-05-30 20:30 | NUR ---
RN MS OPENING ADMITTING NOTES RECEIVED PATIENT JW PATTON FROM ER, SAFELY TRANSFERRED TO ROOM 313, ALERT AND ORIENTED X 1-2 , ALSO NOTED WITH CONFUSED EPISODES,ABLE TO FOLLOW SIMPLE DIRECTIONS, RESPIRATIONS EVEN AND UNLABORED WITH EQUAL RISE AND FALL OF CHEST, NOTED FACIAL GRIMACING AT THIS TIME, HOWEVER UNABLE TO SCALE PAIN, BODY ASSESSMENT DONE, PICTURES TAKEN, PLACED IN CHART BELONGING S DONE, LET FOOT GANGRENE SITE CLEANSED AND COVERED WITH ABD AND KERLIX, PER TAFOYA OBTIAN WOUND CULTURE TO LEFT FOOT AND DONE, PATIENT PROVIDED WITH PERINEAL CARE, HAD LARGE BM, CLEANSED AND REPOSITIONED AND OFFLOADED, AFFECTED WOUND AREAS AND SACRAL AREA, PLACED MEPILEX, LEFT FA #18 G INTACT AND PATENT, NO REDNESS, NO INFILTRATION PRESENT, PER ER REPORT CONCHIS TAPIA PLACED IN CHART PATIENT IS FULL CODE ON HOSPICE, TAFOYA AWARE PATIENT IS FULL CODE AT THIS TIME, PER ER REPORT SON WILL BE IN HERE IN THE AM TO ADDRESS, AWAITING TAFOYA ORDERS, AT THIS TIME WILL CONTINUE TO MONITOR , ALL NEEDS ATTENDED AT THIS TIME.
--- NOTE | 2019-05-30 20:30 | NUR ---
TRANSFERRED TOT HTE THIRD FLOOR IN STABLE CONDITION UNDER ACLS PROTOCOL
[2019-05-30] MEDS ORDERED: Z GUARD REMEDY 2 OZ OINT TP PRN (21:00)
[2019-05-30] MEDS ORDERED: ACETAMINOPHEN 325 MG TABLET PO PRN (21:00)
[2019-05-30] MEDS ORDERED: TRAMADOL HCL 50 MG TABLET PO PRN (21:00)
[2019-05-30] MEDS ORDERED: ONDANSETRON HCL/PF 4 MG/2 ML VIAL IVP PRN (21:00)
[2019-05-30] MEDS ORDERED: DEXTROSE 50%-WATER 50 ML DISP.SYRIN IV PRN (21:00)
[2019-05-30] MEDS ORDERED: MAGNESIUM HYDROXIDE 30 ML UDC PO PRN (21:00)
[2019-05-30] MEDS ORDERED: MAG HYDROX/AL HYDROX/SIMETH 30 ML UDC PO PRN (21:00)
--- NOTE | 2019-05-30 21:00 | NUR ---
RN MS NOTES MADE MICHELET AWARE OF ULTRAM CLARIFICATION , CALLED PHARMACY PER MICHELET ITS PRN , AWARE OF CODE STATUS AND SON WILL BE HERE IN THE AM TO ADDRESS CODE STATUS PER REPORT ,AND MADE AWARE PER PHARM RECOMMENDATION FOR XARELTO PER PHARM RECOMMENDS HEPARIN PER MICHELET KEEP XARELTO FOR NOW.
[2019-05-30] MEDS ORDERED: ATORVASTATIN 40 MG TABLET PO SCH (22:00)
[2019-05-30] MEDS: IV 1/2NS 1000 ML 1,000 ML IV PRN (22:32)
[2019-05-30] MEDS: BLOOD SUGAR DIAGNOSTIC 1 EACH STRIP IN SCH (22:43)
[2019-05-30] MEDS: GABAPENTIN 300 MG CAPSULE PO SCH (22:53)
[2019-05-30] MEDS: AMLODIPINE BESYLATE 10 MG TABLET PO SCH (22:54)
[2019-05-30] MEDS: QUETIAPINE FUMARATE 25 MG TABLET PO SCH (22:54)
[2019-05-30] MEDS: INSULIN REGULAR, HUMAN 100 UNIT/ML 3 ML VIAL SQ PRN (23:00)
[2019-05-31] MEDS ORDERED: PIPERACILLIN /TAZOBACTAM 3.375 G VIAL IV ONE (00:49)
[2019-05-31] MEDS ORDERED: PIPERACILLIN /TAZOBACTAM 3.375 G in IV D5W 50 ML IV ONE ×2 (01:00→11:00)
--- NOTE | 2019-05-31 02:00 | NUR ---
RN MS NOTES REPORT GIVEN TO EYAD FOR CONTINUITY OF CARE PATIENT LEFT STABLE , ABX RUNNING ORDERED, ALL NEEDS WERE ATTENDED.
--- NOTE | 2019-05-31 02:05 | NUR ---
RN OPEN NOTES RECEIVED PATIENT RESTING IN BED, EASILY AROUSABLE. A/OX2. NO SIGNS OF DISTRESS OR DISCOMFORT. BREATHING EVEN AND UNLABORED. IV ACCESS IN LFA WITH ZOSYN INFUSING, PATENT AND INTACT, NO SIGNS OF REDNESS OR INFILTRATION. BED IN LOW LOCKED POSITION WITH SIDE RAILS X2. CALL LIGHT WITHIN REACH. WILL CONTINUE TO MONITOR.
[2019-05-31] MEDS: BLOOD SUGAR DIAGNOSTIC 1 EACH STRIP IN SCH ×4 (06:45→21:51)
--- NOTE | 2019-05-31 06:45 | NUR ---
RN NOTES DID NOT ADMINISTER SLIDING SCALE INSULIN COVERAGE FOR BS 143. PATIENT IS FAILURE TO THRIVE AND HAS POOR PO INTAKE. WILL CONTINUE TO MONITOR.
--- NOTE | 2019-05-31 07:10 | NUR ---
RN CLOSING NOTES PATIENT RESTING IN BED, EASILY AROUSABLE. A/OX2. NO SIGNS OF DISTRESS OR DISCOMFORT. BREATHING EVEN AND UNLABORED. IV ACCESS IN LFA WITH WITH 1/2 NS INFUSING, PATENT AND INTACT, NO SIGNS OF REDNESS OR INFILTRATION. ALL NEEDS MET. NO SIGNIFICANT CHANGES THROUGH THE NIGHT. PATIENT REPOSITIONED Q2H. BED IN LOW LOCKED POSITION WITH SIDE RAILS X2. CALL LIGHT WITHIN REACH. WILL ENDORSE TO AM SHIFT FOR EULA.
--- NOTE | 2019-05-31 07:35 | NUR ---
MS RN INITIAL NOTES Report received at bedside. Patient received in bed, sleeping comfortably, easily aroused. No SOB/labored breathing noted. No signs and symptoms of distress. Safety measures in place. Will continue to monitor and assess patient.
[2019-05-31 08:00] VITALS: BP 106/57
[2019-05-31 08:03] LABS: BASOPHILS % (AUTO) 0.2 % (0.0-2.0); EOSINOPHILS % (AUTO) 0.1 % (0.0-6.0); HEMATOCRIT 31 % (33-45); HEMOGLOBIN 9.8 g/dL (11.5-14.8); LYMPHOCYTES # (AUTO) 1.8 /CMM (0.8-4.8); LYMPHOCYTES % (AUTO) 15.5 % (20.0-44.0); MEAN CORPUSCULAR HGB CONC 32 g/dl (31.0-36.0); MEAN CORPUSCULAR VOLUME 84 fL (82-100); MONOCYTES # (AUTO) 0.8 /CMM (0.1-1.30); MONOCYTES % (AUTO) 6.9 % (2.0-12.0); NEUTROPHILS # (AUTO) 9.2 /CMM (1.8-8.9); NEUTROPHILS % (AUTO) 77.3 % (43.0-81.0); PLATELET COUNT (AUTO) 248 /CMM (150-450); RED BLOOD CELL COUNT(AUTO) 3.63 MIL/uL (4.0-5.2); WHITE BLOOD COUNT (AUTO) 11.9 K/uL (4.3-11.0)
[2019-05-31 08:04] LABS: CALCIUM, SERUM 10.4 mg/dL (8.5-10.1); CARBON DIOXIDE 23 mmol/L (21-32); CHLORIDE 114 mmol/L (98-107); CREATININE 0.8 mg/dL (0.6-1.3); GLUCOSE 168 mg/dL (74-106); MAGNESIUM 1.6 mg/dL (1.8-2.4); PHOSPHORUS 1.4 mg/dL (2.5-4.9); POTASSIUM 3.2 mmol/L (3.5-5.1); SODIUM SERUM 147 mmol/L (136-145); UREA NITROGEN, BLOOD 25 mg/dL (7-18)
[2019-05-31 08:17] LABS: CHOLESTEROL 100 mg/dL (<200); HDL CHOLESTEROL 25 mg/dL (40-60); LDL 60 mg/dL (0-99); THYROID STIMULATING HORMONE 0.206 uIU/mL (0.358-3.74); TRIGLYCERIDES 76 mg/dL (30-150)
--- NOTE | 2019-05-31 08:20 | NUR ---
MS RN NON-ADMIN NOTES Medication was ordered/scheduled to be given prior to 05/31 morning shift.
[2019-05-31] MEDS: ASCORBIC ACID 500 MG TABLET PO SCH (08:41)
[2019-05-31] MEDS: LACTOBACILLUS RHAMNOSUS GG 1 EACH CAP.SPRINK PO SCH (08:41)
[2019-05-31] MEDS: DOCUSATE SODIUM 100 MG CAPSULE PO SCH (08:41)
[2019-05-31] MEDS: FOLIC ACID 1 MG TABLET PO SCH (08:49)
[2019-05-31] MEDS ORDERED: Medication Not On Formulary EA (Lactobacillus Acidophilus (Acidophilus) 1 EACH) PO SCH (09:00)
[2019-05-31] MEDS ORDERED: Medication Not On Formulary EA (Lisinopril 40 MG) PO SCH (09:00)
[2019-05-31] MEDS: LISINOPRIL (20MG) 20 MG TABLET PO SCH (09:45)
[2019-05-31] MEDS: Magnesium 1GM/D5W 100ML PREMIX 100 ML IV SCH ×2 (09:50→10:34)
[2019-05-31] MEDS: POTASSIUM CHLORIDE 20 MEQ TAB.PRT.SR PO SCH ×3 (09:50→12:30)
--- NOTE | 2019-05-31 10:02 | NUR ---
MS LARS Non-admin NOTES Low BP. Rechecked BP 101/51 HR 50.
[2019-05-31] MEDS ORDERED: FEE PK DOSING 1 MIN EA MC ONE (10:31)
--- NOTE | 2019-05-31 10:50 | NUR ---
MS RN NOTES Wound care consult at bedside. Dressing changed. Photo taken on left foot. Dr. Graham made aware of wound condition
--- NOTE | 2019-05-31 11:01 | NUR ---
WOUND CARE CONSULT: PT PRESENTS WITH PURPLE/BLACK DISCOLORATION TO ENTIRE LEFT FOOT WITH OPEN AREA TO DORSAL FOOT AND SACRAL SCARRING, PRESENT ON ADMISSION. RT LEG AMPUTATION STUMP CLEAR. RECOMMEND DPM CONSULT. DR CASTILLO NOTIFIED OF CONSULT REQUEST. DEFER TO DPM FOR LEFT FOOT WOUND TREATMENT PLAN. GENTLY WRAPPED ABD/KERLIX IN PLACE. HEEL FLOATED. RECOMMENDATIONS MADE FOR SKIN PROTECTION. DISCUSSED WITH NURSING STAFF. FIRST STEP LOW AIRLOSS MATTRESS ORDERED. WILL SEE PRN. MARTE IN AGREEMENT WITH PLAN OF CARE. Addendum: 05/31/19 at 1104 by KAMINI MINA WNDNU Amended: Links added.
[2019-05-31] MEDS ORDERED: NEUTRA PHOS 1 POWD.PACKET PO ONE (11:30)
--- NOTE | 2019-05-31 11:30 | NUR ---
MS SOUSA - IV MED DELIVERY Awaiting for Zosyn delivery from Pharm. Will administer as soon as med arrives on unit Addendum: 05/31/19 at 1153 by ISAAC CAMACHO RN Spoke to pharm staff - will deliver med erika
--- NOTE | 2019-05-31 11:40 | NUR ---
MS RN NOTES Dr. Graham at bedside
[2019-05-31] MEDS: INSULIN REGULAR, HUMAN 100 UNIT/ML 3 ML VIAL SQ PRN ×3 (12:44→22:00)
[2019-05-31] MEDS: VANCOMYCIN 0.75 GM in IV D5W 250 ML IV SCH (13:17)
--- NOTE | 2019-05-31 13:32 | NUR ---
MS SOUSA NOTES Awaiting for Promethazine delivery from Pharm. Will administer as soon as med is divyavier Addendum: 05/31/19 at 1333 by ISAAC CAMACHO RN delivered*
[2019-05-31] MEDS: PROMETHAZINE HCL SYRUP 6.25 MG/5 ML UDC PO SCH ×2 (15:38→17:20)
[2019-05-31 16:00] VITALS: BP 115/74
[2019-05-31] MEDS ORDERED: RIVAROXABAN 10 MG TABLET PO SCH (17:00)
[2019-05-31] MEDS: PIPERACILLIN /TAZOBACTAM 3.375 G in IV D5W 100 ML IV SCH (17:23)
--- NOTE | 2019-05-31 18:04 | NUR ---
MS RN CLOSING NOTES Patient remained in bed, intermittently sleeping, easily aroused. Alert and oriented x1-2. All due meds given and tolerated with antibiotic treatment. No facial grimacing or moaning noted. Not in any type of distress. Dr. Hickman assessed patient and spoke to son regarding recommendation. Awaiting for son's decision. Continue on glucose monitoring, antibiotic treatment, and hospitalization. Kept patient clean, dry and comfortable. All needs anticipated provided and met. Turned and repositioned patient every two hours. Assisted with feeding. Safety measures in place. Bed in lowest position with bed alarm on and call light within reach. Will endorse to oncoming shift nurse.
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
--- NOTE | 2019-05-31 19:46 | NUR ---
MS/RN OPENING NOTES RECEIVED PATIENT IN BED, AWAKE,WITH GOOD EYE CONTACT , ALERT X1, REQUIRE EXTENSIVE ASSISTANCE IN ALL ADLS, RESPIRATIONS EVEN AND UNLABORED IN ROOM AIR. HAS LEFT FOOT GANGRENE, DRESSING INTACT,PATIENT REPOSITIONED FOR COMFORT, WITH RIGHT LEG AMPUTATION, FAMILY SRINIVASA INVOLVE TO CARE ABLE TO CALL AND FOLLOW UP WITH VASCULAR SURGEON MD DODSON IN MORNING. , PATIENT INCONTINENT WITH DIAPER, LEFT FORE ARM IV SITE AND FFIGHT FOREARM IV SITE PATENT, WILL CONTINUE TO MONITOR.
[2019-05-31 20:00] VITALS: BP 113/55
[2019-05-31] MEDS: AMLODIPINE BESYLATE 10 MG TABLET PO SCH (21:00)
[2019-05-31] MEDS: QUETIAPINE FUMARATE 25 MG TABLET PO SCH (21:02)
[2019-05-31] MEDS: GABAPENTIN 300 MG CAPSULE PO SCH (21:02)
[2019-05-31] MEDS ORDERED: ZOLPIDEM TARTRATE 5 MG TABLET PO PRN (22:00)
[2019-06-01] MEDS: PIPERACILLIN /TAZOBACTAM 3.375 G in IV D5W 100 ML IV SCH ×3 (00:36→18:17)
[2019-06-01] MEDS: VANCOMYCIN 0.75 GM in IV D5W 250 ML IV SCH ×2 (05:08→23:54)
[2019-06-01] MEDS: BLOOD SUGAR DIAGNOSTIC 1 EACH STRIP IN SCH ×4 (05:58→21:16)
[2019-06-01] MEDS: INSULIN REGULAR, HUMAN 100 UNIT/ML 3 ML VIAL SQ PRN ×3 (06:21→21:32)
[2019-06-01 06:27] LABS: BASOPHILS # (AUTO) 0.1 /CMM (0.0-0.2); BASOPHILS % (AUTO) 1.2 % (0.0-2.0); HEMATOCRIT 31 % (33-45); HEMOGLOBIN 10.1 g/dL (11.5-14.8); LYMPHOCYTES # (AUTO) 1.6 /CMM (0.8-4.8); LYMPHOCYTES % (AUTO) 16.9 % (20.0-44.0); MEAN CORPUSCULAR HGB CONC 33 g/dl (31.0-36.0); MEAN CORPUSCULAR VOLUME 84 fL (82-100); MONOCYTES # (AUTO) 0.5 /CMM (0.1-1.30); MONOCYTES % (AUTO) 4.8 % (2.0-12.0); NEUTROPHILS # (AUTO) 6.9 /CMM (1.8-8.9); NEUTROPHILS % (AUTO) 74.1 % (43.0-81.0); PLATELET COUNT (AUTO) 231 /CMM (150-450); WHITE BLOOD COUNT (AUTO) 9.4 K/uL (4.3-11.0)
--- NOTE | 2019-06-01 06:35 | NUR ---
313-2 PATIENT RESTING COMFORTABLY IN BED. HOB ELEVATED. MONITORED FOR ANY CHANGES, BED LOCKED, CALL LIGHTS WITHIN REACH. WILL ENDORSE TO AM RN FOR EULA. REPOSITIONED FOR COMFORT. BED LOCKED, CALL LIGHTS WITHIN REACH WILL MONITOR.
[2019-06-01 06:58] LABS: CARBON DIOXIDE 22 mmol/L (21-32); CHLORIDE 111 mmol/L (98-107); CREATININE 0.6 mg/dL (0.6-1.3); GLUCOSE 183 mg/dL (74-106); PHOSPHORUS 1.3 mg/dL (2.5-4.9); POTASSIUM 4.2 mmol/L (3.5-5.1); SODIUM SERUM 140 mmol/L (136-145); UREA NITROGEN, BLOOD 20 mg/dL (7-18)
--- NOTE | 2019-06-01 07:38 | NUR ---
MS RN RECEIVED ON BED,SLEEPING, ARROUSABLE, NOT IN ANY FORM OF DISTRESS, RESPIRATIONS EVEN AND UNLABORED,NO SOB NOTED, DENIES PAIN , ALL NEEDS ATTENDED,
[2019-06-01 08:00] VITALS: BP 122/54
--- NOTE | 2019-06-01 08:54 | NUR ---
MS RN WAS SEEN BY DR. MACKENZIE W/ ORDERS MADE AND CARRIED OUT.
[2019-06-01] MEDS: LISINOPRIL (20MG) 20 MG TABLET PO SCH (09:00)
[2019-06-01] MEDS ORDERED: Sodium Phosphate 15 MMOL in IV D5W 250 ML IV ONE (09:00)
[2019-06-01] MEDS: FOLIC ACID 1 MG TABLET PO SCH (10:39)
[2019-06-01] MEDS: ASCORBIC ACID 500 MG TABLET PO SCH (10:39)
[2019-06-01] MEDS: DOCUSATE SODIUM 100 MG CAPSULE PO SCH (10:39)
[2019-06-01] MEDS: LACTOBACILLUS RHAMNOSUS GG 1 EACH CAP.SPRINK PO SCH (10:39)
[2019-06-01] MEDS: PROMETHAZINE HCL SYRUP 6.25 MG/5 ML UDC PO SCH ×3 (10:47→18:17)
--- NOTE | 2019-06-01 12:00 | NUR ---
MS RN BS - 187 - DID NOT GIVE COVERAGE DUE TO PATIENT NOT EATING GOOD AT LUNCH.
--- NOTE | 2019-06-01 16:00 | NUR ---
MS SOUSA WAS SEEN BY PHOEBE Fine/ ORDERS MADE AND CARRIED OUT.
[2019-06-01 16:02] VITALS: BP 137/64
[2019-06-01] MEDS: IV 1/2NS 1000 ML 1,000 ML IV PRN (18:26)
--- NOTE | 2019-06-01 19:00 | NUR ---
RN medsurg notes Received Pt from morning nurse. Pt is alert and oriented X2. Pt is resting in bed comfortably. Awaken easily. Respiration is normal. No SOB. No nausea or vomiting. Pt denies any pain or discomfort. IV sites at LFA# 18 is intact, patent and flush without resistance. IV sites at RFA # 22 is patent, intact and infusing well antibiotic Zosyn at this time. Safety precautions is maintained. Bed at low position, brakes on, side rails upX3 and call light is within reach. Will continue to monitor.
--- NOTE | 2019-06-01 19:00 | NUR ---
MS RN ON BED,NO DISTRESS NOTED.
[2019-06-01 20:00] VITALS: BP 142/67
[2019-06-01] MEDS: HYDROCODONE/APAP 5/325MG 1 EACH TABLET PO PRN (20:40)
--- NOTE | 2019-06-01 20:40 | NUR ---
RN medsurg notes Administered [place] 5/325 mg /1 tab/PO as ordered for pain at L foot 7/10 on pain scale per Pt's requested. Will continue to monitor.
[2019-06-01] MEDS: QUETIAPINE FUMARATE 25 MG TABLET PO SCH (21:27)
[2019-06-01] MEDS: GABAPENTIN 300 MG CAPSULE PO SCH (21:27)
[2019-06-01] MEDS: AMLODIPINE BESYLATE 10 MG TABLET PO SCH (21:29)
--- NOTE | 2019-06-01 21:40 | NUR ---
RN medsurg notes Pt is resting in bed comfortably. Awaken easily. No S/S of distress noted. Will continue to monitor.
[2019-06-02] MEDS: PIPERACILLIN /TAZOBACTAM 3.375 G in IV D5W 100 ML IV SCH ×3 (01:25→16:47)
[2019-06-02] MEDS: BLOOD SUGAR DIAGNOSTIC 1 EACH STRIP IN SCH ×4 (06:31→22:00)
[2019-06-02] MEDS: INSULIN REGULAR, HUMAN 100 UNIT/ML 3 ML VIAL SQ PRN ×4 (06:32→22:06)
[2019-06-02 06:43] LABS: BASOPHILS % (AUTO) 0.3 % (0.0-2.0); EOSINOPHILS % (AUTO) 5.2 % (0.0-6.0); HEMATOCRIT 31 % (33-45); HEMOGLOBIN 10.1 g/dL (11.5-14.8); LYMPHOCYTES % (AUTO) 20.4 % (20.0-44.0); MEAN CORPUSCULAR HGB CONC 32 g/dl (31.0-36.0); MEAN CORPUSCULAR VOLUME 84 fL (82-100); MONOCYTES # (AUTO) 0.6 /CMM (0.1-1.30); MONOCYTES % (AUTO) 6.4 % (2.0-12.0); NEUTROPHILS # (AUTO) 6.6 /CMM (1.8-8.9); NEUTROPHILS % (AUTO) 67.7 % (43.0-81.0); PLATELET COUNT (AUTO) 239 /CMM (150-450); RED BLOOD CELL COUNT(AUTO) 3.74 MIL/uL (4.0-5.2); WHITE BLOOD COUNT (AUTO) 9.7 K/uL (4.3-11.0)
[2019-06-02 06:46] LABS: ALANINE AMINOTRANSFERASE 23 U/L (12-78); ALBUMIN 1.7 g/dL (3.4-5.0); ALKALINE PHOSPHATASE 79 U/L (46-116); ASPARTATE AMINOTRANSFERASE 17 U/L (15-37); BILIRUBIN,TOTAL 0.5 mg/dL (0.2-1.0); CALCIUM, SERUM 9.6 mg/dL (8.5-10.1); CARBON DIOXIDE 22 mmol/L (21-32); CHLORIDE 105 mmol/L (98-107); CREATININE 0.6 mg/dL (0.6-1.3); GLUCOSE 208 mg/dL (74-106); MAGNESIUM 1.6 mg/dL (1.8-2.4); PHOSPHORUS 2.3 mg/dL (2.5-4.9); POTASSIUM 3.8 mmol/L (3.5-5.1); SODIUM SERUM 139 mmol/L (136-145); TOTAL PROTEIN, SERUM 6.4 g/dL (6.4-8.2); UREA NITROGEN, BLOOD 12 mg/dL (7-18)
--- NOTE | 2019-06-02 06:47 | NUR ---
RN medsurg closing notes Pt is resting in bed comfortably. Awaken easily. Respiration is normal. No SOB. No nausea or vomiting. IV sites is intact, patent and infusing well 0.45 NS @ 50ml/hr. Routine meds were given. All needs met. Skin care provided. Safety precautions is maintained. Bed at low position and call light is within reach. Will inform to morning nurse for EULA.
--- NOTE | 2019-06-02 07:26 | NUR ---
MS/RN OPENING NOTE PATIENT IN BED IN STABLE CONDITION. A/O X 1-2. NO SIGNS OF ACUTE DISTRESS. NO COMPLAIN OF PAIN OR DISCOMFORT. HOB ELEVATED FOR ASPIRATION PRECAUTION, TOLERATING WELL. ALL NEEDS ATTENDED TO. CALL LIGHT WITHIN REACH. WILL CONTINUE TO MONITOR TO ENSURE SAFETY.
[2019-06-02 08:00] VITALS: BP 128/67
[2019-06-02] MEDS: DOCUSATE SODIUM 100 MG CAPSULE PO SCH (08:28)
[2019-06-02] MEDS: ASCORBIC ACID 500 MG TABLET PO SCH (08:28)
[2019-06-02] MEDS: PROMETHAZINE HCL SYRUP 6.25 MG/5 ML UDC PO SCH ×3 (08:28→16:47)
[2019-06-02] MEDS: LACTOBACILLUS RHAMNOSUS GG 1 EACH CAP.SPRINK PO SCH (08:28)
[2019-06-02] MEDS: LISINOPRIL (20MG) 20 MG TABLET PO SCH (08:29)
[2019-06-02] MEDS: FOLIC ACID 1 MG TABLET PO SCH (08:29)
--- NOTE | 2019-06-02 11:50 | NUR ---
MS/RN RECEIVED CALL FROM RODDY FROM [facility] AND HE RELAYED PATIENT LEFT FOOT WOUND POSITIVE FOR MRSA. DR PHOEBE BROTHERS AWARE.
--- NOTE | 2019-06-02 12:23 | NUR ---
MS/RN SPOKE WITH GAVINO FROM PHARM AND MADE AWARE PATIENT MG 1.6L PHOSPHORUS 2.3L. PER GAVINO THE WILL PUT IN ORDER IN A BIT FOR REPLACEMENT.
[2019-06-02] MEDS: Magnesium 1GM/D5W 100ML PREMIX 100 ML IV SCH ×2 (12:28→13:48)
[2019-06-02] MEDS ORDERED: NEUTRA PHOS 1 POWD.PACKET PO ONE (12:30)
--- NOTE | 2019-06-02 12:30 | NUR ---
MS/RN RECEIVED ORDER FROM DR PHOEBE BROTHERS FOR CONTACT ISOLATION FOR PATIENT SECONDARY TO POSITIVE FOR MRSA OF LEFT FOOT WOUND.
[2019-06-02 16:00] VITALS: BP 127/68
[2019-06-02] MEDS: VANCOMYCIN 0.75 GM in IV D5W 250 ML IV SCH (17:34)
--- NOTE | 2019-06-02 18:04 | NUR ---
MS/RN CLOSING NOTE PATIENT IN BED IN STABLE CONDITION. A/O X 2. NO SIGNS OF ACUTE DISTRESS. NO COMPLAIN OF PAIN OR DISCOMFORT. ON CONTACT ISOLATION SECONDARY TO MRSA OF LEFT FOOT WOUND, DUE TREATMENT DONE TO SITE ORDERED. TOLERATED WELL. ALL NEEDS ATTENDED TO AT THIS TIME. CALL LIGHT WITHIN REACH. WILL ENDORSE TO NEXT SHIFT FOR CONTINUITY OF CARE.
--- NOTE | 2019-06-02 19:00 | NUR ---
RN medsurg opening notes Received Pt from morning nurse. Pt is resting in bed comfortably. Awaken easily. Respiration is normal. No S/S of distress noted. IV sites at LFA #18 is intact, patent and SL. IV sites at RFA # 22 is intact, patent and infusing well 0.45 NS @ 50 ml/hr. Contact precautions for MRSA is maintained. Safety precautions is maintained. Bed at low position, brakes on, side rails upX3, bed alarms on and call light is within reach. Will continue for EULA.
[2019-06-02 20:00] VITALS: BP 134/61
--- NOTE | 2019-06-02 20:32 | NUR ---
RN medsurg notes Pharmacy, [facility] called about Pt EKG- QT. Informed the Pharmacy that Pt got EKG done on 05/31/19 and QT was 484.
[2019-06-02] MEDS ORDERED: LEVOFLOXACIN (750 MG) 750 MG TABLET PO SCH (21:00)
[2019-06-02] MEDS ORDERED: FLUCONAZOLE IN NS 100 MG in PREMIX 1 EA IV SCH ×2 (21:00)
[2019-06-02] MEDS ORDERED: LEVOFLOXACIN (500MG) 500 MG TABLET PO ONE (21:00)
[2019-06-02] MEDS ORDERED: LEVOFLOXACIN 750 MG /D5W 150ML 750 MG in PREMIX 1 EA IV SCH (21:00)
--- NOTE | 2019-06-02 21:15 | NUR ---
RN medsur notes RT at the bed side for EKG 12 leads. Pt tolerated well.
--- NOTE | 2019-06-02 21:38 | NUR ---
RT NOTE LATE ENTRY. @2114 STAT EKG COMPLETED. LARS MONAHAN BEDSIDE.
[2019-06-02] MEDS: GABAPENTIN 300 MG CAPSULE PO SCH (21:55)
[2019-06-02] MEDS: QUETIAPINE FUMARATE 25 MG TABLET PO SCH (21:55)
[2019-06-02] MEDS: FLUCONAZOLE (100 MG) 100 MG TABLET PO SCH (21:55)
[2019-06-02] MEDS: AMLODIPINE BESYLATE 10 MG TABLET PO SCH (21:56)
[2019-06-03] MEDS: BLOOD SUGAR DIAGNOSTIC 1 EACH STRIP IN SCH ×4 (06:37→21:34)
[2019-06-03] MEDS: INSULIN REGULAR, HUMAN 100 UNIT/ML 3 ML VIAL SQ PRN ×4 (06:37→21:37)
[2019-06-03 06:56] LABS: BASOPHILS % (AUTO) 0.2 % (0.0-2.0); EOSINOPHILS % (AUTO) 3.4 % (0.0-6.0); HEMATOCRIT 31 % (33-45); LYMPHOCYTES # (AUTO) 1.8 /CMM (0.8-4.8); LYMPHOCYTES % (AUTO) 18.4 % (20.0-44.0); MEAN CORPUSCULAR HGB CONC 33 g/dl (31.0-36.0); MEAN CORPUSCULAR VOLUME 84 fL (82-100); MONOCYTES # (AUTO) 0.5 /CMM (0.1-1.30); MONOCYTES % (AUTO) 5.1 % (2.0-12.0); NEUTROPHILS # (AUTO) 7.2 /CMM (1.8-8.9); NEUTROPHILS % (AUTO) 72.9 % (43.0-81.0); PLATELET COUNT (AUTO) 287 /CMM (150-450); RED BLOOD CELL COUNT(AUTO) 3.68 MIL/uL (4.0-5.2); WHITE BLOOD COUNT (AUTO) 9.9 K/uL (4.3-11.0)
--- NOTE | 2019-06-03 06:59 | NUR ---
RN medsurg closing notes Pt is resting in bed comfortably. No SOB. No S/S of distress noted. VS is stable. Afebrile. IV sites at LFA and RFA are intact, and patent. Contact precautions is maintained for MRSA L foot. Routine meds were given. Skin care provided. All needs met. Safety precautions is maintained. Bed at low position and call light is within reach. Will inform to morning nurse for EULA.
[2019-06-03 07:23] LABS: CALCIUM, SERUM 9.7 mg/dL (8.5-10.1); CARBON DIOXIDE 23 mmol/L (21-32); CHLORIDE 107 mmol/L (98-107); CREATININE 0.5 mg/dL (0.6-1.3); GLUCOSE 169 mg/dL (74-106); PHOSPHORUS 2.2 mg/dL (2.5-4.9); POTASSIUM 4.1 mmol/L (3.5-5.1); SODIUM SERUM 139 mmol/L (136-145); UREA NITROGEN, BLOOD 9 mg/dL (7-18)
--- NOTE | 2019-06-03 07:33 | NUR ---
RN OPENING NOTE PT WAS RECEIVED IN BED AT LOWEST AND LOCKED POSITION WITH SIDE RAILS UPX2, A/O X2 BREATHING EVEN AND UNLABORED ON RA, NO S/S OF ANY DISTRESS OR PAIN NOTED, IV ARE PATENT AND INTACT, INFORMED BY NIGHT RN THAT SON REFUSED AMPUTATION, SAFETY PRECAUTIONS IN PLACE, CALL LIGHT WITHIN REACH, WILL MONITOR ACCORDINGLY
[2019-06-03 08:00] VITALS: BP 143/73
[2019-06-03] MEDS: DOCUSATE SODIUM 100 MG CAPSULE PO SCH (08:50)
[2019-06-03] MEDS: LACTOBACILLUS RHAMNOSUS GG 1 EACH CAP.SPRINK PO SCH (08:50)
[2019-06-03] MEDS: FOLIC ACID 1 MG TABLET PO SCH (08:50)
[2019-06-03] MEDS: ASCORBIC ACID 500 MG TABLET PO SCH (08:50)
[2019-06-03] MEDS: PROMETHAZINE HCL SYRUP 6.25 MG/5 ML UDC PO SCH ×3 (08:51→16:38)
[2019-06-03] MEDS: LISINOPRIL (20MG) 20 MG TABLET PO SCH (08:51)
[2019-06-03] MEDS: IV 1/2NS 1000 ML 1,000 ML IV PRN (10:13)
[2019-06-03] MEDS: VANCOMYCIN 0.75 GM in IV D5W 250 ML IV SCH (11:11)
[2019-06-03] MEDS ORDERED: NEUTRA PHOS 1 POWD.PACKET PO ONE (11:30)
[2019-06-03 16:00] VITALS: BP 157/87
--- NOTE | 2019-06-03 18:29 | NUR ---
RN CLOSING NOTE PT IN BED AT LOWEST AND LOCKED POSITION WITH SIDE RAILS UPX2, BREATHING EVEN AND UNLABORED ON RA, NO S/S OF ANY DISTRESS OR PAIN AT THIS TIME, IV IS PATENT AND INTACT, SAFETY PRECAUTIONS IN PLACE, CALL LIGHT WITHIN REACH, ALL NEEDS ATTENDED TO, WILL ENDORSE TO ONCOMING RN FOR EULA.
--- NOTE | 2019-06-03 19:30 | NUR ---
MS/RN OPENING NOTES PT RECEIVED ASLEEP, OPENS EYES TO NAME. ON ROOM AIR, BREATHING EVEN AND UNLABORED. A/OX2 (NAME AND YEAR ONLY). NO S/S OF SOB OR PAIN AT THIS TIME. ABLE TO MAKE NEEDS KNOWN. ENRIQUE PIV IN PLACE AND RUNNING IVF ORDERED. NO NEEDS EXPRESSED AT THIS TIME. HOB ELEVATED. BED IN LOW/LOCKED POSITION WITH CALL LIGHT IN REACH, SIDE RAILS UPX3 AND BED ALARM ON FOR SAFETY. CONTACT ISOLATION PRECAUTIONS IMPLEMENTED. DRESSING TO LEFT FOOT C/D/I. WILL CONTINUE TO MONITOR
[2019-06-03 20:00] VITALS: BP 125/69
[2019-06-03] MEDS: AMLODIPINE BESYLATE 10 MG TABLET PO SCH (21:35)
[2019-06-03] MEDS: GABAPENTIN 300 MG CAPSULE PO SCH (21:35)
[2019-06-03] MEDS: FLUCONAZOLE (100 MG) 100 MG TABLET PO SCH (21:35)
[2019-06-03] MEDS: LEVOFLOXACIN (250MG) 250 MG TABLET PO SCH (21:35)
[2019-06-03] MEDS: QUETIAPINE FUMARATE 25 MG TABLET PO SCH (21:56)
--- NOTE | 2019-06-04 01:00 | NUR ---
MS/RN NOTES ENRIQUE IV INFILTRATED. INSERTED NEW IV TO LFA #24, GOOD BLOOD RETURN NOTED. FLUSHES WELL. IVF RESUMED.
--- NOTE | 2019-06-04 05:32 | NUR ---
MS/RN NOTES SPOKE TO ANDREA FROM [facility] REGARDING VANCO TROUGH SCHEDULED FOR 0800 AND VANCOMYCIN 0.75G IV SCHEDULED TO ADMINISTER AT 0600. ADNREA WILL CHANGE THE TIME FOR THE VANCO TROUGH FOR 0600
[2019-06-04] MEDS: BLOOD SUGAR DIAGNOSTIC 1 EACH STRIP IN SCH ×4 (06:54→21:59)
[2019-06-04] MEDS: INSULIN REGULAR, HUMAN 100 UNIT/ML 3 ML VIAL SQ PRN ×4 (06:59→22:01)
[2019-06-04 07:15] LABS: BASOPHILS % (AUTO) 0.2 % (0.0-2.0); EOSINOPHILS % (AUTO) 2.8 % (0.0-6.0); HEMATOCRIT 29 % (33-45); HEMOGLOBIN 9.6 g/dL (11.5-14.8); LYMPHOCYTES # (AUTO) 2.5 /CMM (0.8-4.8); LYMPHOCYTES % (AUTO) 26.6 % (20.0-44.0); MEAN CORPUSCULAR HGB CONC 33 g/dl (31.0-36.0); MEAN CORPUSCULAR VOLUME 83 fL (82-100); MONOCYTES # (AUTO) 0.7 /CMM (0.1-1.30); MONOCYTES % (AUTO) 6.8 % (2.0-12.0); NEUTROPHILS # (AUTO) 6.1 /CMM (1.8-8.9); NEUTROPHILS % (AUTO) 63.6 % (43.0-81.0); PLATELET COUNT (AUTO) 291 /CMM (150-450); RED BLOOD CELL COUNT(AUTO) 3.52 MIL/uL (4.0-5.2); WHITE BLOOD COUNT (AUTO) 9.6 K/uL (4.3-11.0)
--- NOTE | 2019-06-04 07:28 | NUR ---
MS/RN CLOSING NOTES PT ASLEEP, RESPONSIVE TO NAME. AOX2. REMAINS ON ROOM AIR, BREATHING EVEN AND UNLABORED. NO S/S OF SOB OR PAIN AT THIS TIME. IV TO LFA PATENT AND INTACT RUNNING IVF ORDERED. TURNED/REPOSITIONED Q2H. LEFT HEEL OFFLOADED. DRESSING CHANGE COMPLETED. NO SIGNIFICANT CHANGES OVERNIGHT. ALL NEEDS MET AND ANTICIPATED. BED REMAINS IN LOW/LOCKED POSITION WITH CALL LIGHT IN REACH. HOB ELEVATED AND SIDE RAILS UP X3 WITH BED ALARM ON FOR SAFETY. ENDORSED TO DAY SHIFT RN EULA.
[2019-06-04 07:36] LABS: CALCIUM, SERUM 9.4 mg/dL (8.5-10.1); CARBON DIOXIDE 26 mmol/L (21-32); CHLORIDE 108 mmol/L (98-107); CREATININE 0.5 mg/dL (0.6-1.3); GLUCOSE 179 mg/dL (74-106); MAGNESIUM 1.8 mg/dL (1.8-2.4); PHOSPHORUS 2.2 mg/dL (2.5-4.9); POTASSIUM 4.1 mmol/L (3.5-5.1); SODIUM SERUM 139 mmol/L (136-145); UREA NITROGEN, BLOOD 10 mg/dL (7-18)
[2019-06-04] MEDS: VANCOMYCIN 0.75 GM in IV D5W 250 ML IV SCH (07:49)
--- NOTE | 2019-06-04 07:50 | NUR ---
MS RN OPENING NOTES PATIENT IN BED RESTING COMFORTABLY. PATIENT BREATHING ON ROOM AIR >95% SPO2. PATIENT BREATHING IS EVEN AND UNLABORED. IV IS INTACT. PATIENT IN NO ACUTE DISTRESS. NO SOB NOTED. PATIENT IN NO DISCOMFORT AT THIS TIME. NO FACIAL GRIMACING NOTED. SAFETY PRECAUTIONS IN PLACE. BED IS LOCKED AND IN LOWEST POSITION. CALL LIGHT WITHIN REACH. WILL CONTINUE TO MONITOR.
[2019-06-04 08:33] VITALS: BP 134/83
[2019-06-04] MEDS: LACTOBACILLUS RHAMNOSUS GG 1 EACH CAP.SPRINK PO SCH (08:56)
[2019-06-04] MEDS: ASCORBIC ACID 500 MG TABLET PO SCH (08:56)
[2019-06-04] MEDS: FOLIC ACID 1 MG TABLET PO SCH (08:56)
[2019-06-04] MEDS: DOCUSATE SODIUM 100 MG CAPSULE PO SCH (08:56)
[2019-06-04] MEDS: PROMETHAZINE HCL SYRUP 6.25 MG/5 ML UDC PO SCH ×3 (08:56→16:40)
[2019-06-04] MEDS: LISINOPRIL (20MG) 20 MG TABLET PO SCH (08:57)
[2019-06-04] MEDS ORDERED: K PHOS NEUTRAL 250 MG TABLET PO ONE (09:30)
--- NOTE | 2019-06-04 12:45 | NUR ---
MS RN NOTES PATIENT IN BED RESTING COMFORTABLY. CALLED PATIENTS SON SRINIVASA, REGARDING DECISION ON ABOVE KNEE AMPUTATION. SON HAS NOT CONFIRMED DECISION, WAITING TO HEAR FROM DOCTOR FIRST. CONTACTED DNP PHOEBE BROTHERS TO INFORM HIM OF SON WANTING TO SPEAK WITH HIM. PHOEBE BROTHERS MADE AWARE AND WILL CONTACT SON. WILL CONTINUE TO MONITOR PATIENT.
--- NOTE | 2019-06-04 15:31 | NUR ---
MS RN NOTES PATIENT RESTING COMFORTABLY. PATIENT KEPT CLEAN, DRY, AND REPOSITIONED. WOUND ORDERS FOLLOWED. DRESSING KEPT CLEAN AND DRY. PATIENT IN NO ACUTE DISTRESS. WILL CONTINUE TO MONITOR.
[2019-06-04 16:00] VITALS: BP 132/66
[2019-06-04] MEDS: IV 1/2NS 1000 ML 1,000 ML IV PRN (16:47)
[2019-06-04] MEDS: VANCOMYCIN 500 MG in IV D5W 100 ML IV SCH (17:01)
--- NOTE | 2019-06-04 18:46 | NUR ---
MS RN CLOSING NOTE PATIENT IS IN BED RESTING, BREATHING ON ROOM AIR SATURATING >95% SPO2. PATIENT IS AWAKE, ALERT AND ORIENTED X2. PATIENT BREATHING IS EVEN AND UNLABORED. PATIENT IN NO ACUTE DISTRESS. NO SOB NOTED. PATIENT WOUND DRESSINGS KEPT CLEAN AND DRY. NO FACIAL GRIMACING NOTED. PATIENT MAINTAINED ON ISOLATION PRECAUTIONS. ALL NURSING NEEDS MET. PATIENT KEPT CLEAN, DRY, REPOSITIONED, AND COMFORTABLE DURING MY SHIFT. PATIENT BED IS LOCKED AND IN LOWEST POSITION. CALL LIGHT WITHIN REACH. WILL ENDORSE CARE TO PM SHIFT FOR EULA.
--- NOTE | 2019-06-04 19:30 | NUR ---
RECEIVED PATIENT IN BED AWAKE. AO X 1, BUT IS AWARE OF THE MD'S PLANS FOR LEFT AKA IF SON IS AGREEABLE. ABLE TO MAKE NEEDS KNOWN. NO ACUTE DISTRESS NOTED. DENIES ANY PAIN AT THIS TIME. SAFETY REMINDERS GIVEN. ON LOW BED WITH BILATERAL UPPER SIDE RAILS UP. CALL LÓPEZ WITHIN EASY REACH. WILL CONTINUE TO MONITOR. Addendum: 06/05/19 at 0502 by SALUD CHAPPELL RN IV SITE PATENT, INTACT; IVF INFUSING ORDERED.
[2019-06-04 20:00] VITALS: BP 121/57
[2019-06-04] MEDS: QUETIAPINE FUMARATE 25 MG TABLET PO SCH (21:16)
[2019-06-04] MEDS: GABAPENTIN 300 MG CAPSULE PO SCH (21:16)
[2019-06-04] MEDS: LEVOFLOXACIN (250MG) 250 MG TABLET PO SCH (21:16)
[2019-06-04] MEDS: FLUCONAZOLE (100 MG) 100 MG TABLET PO SCH (21:16)
[2019-06-04] MEDS: AMLODIPINE BESYLATE 10 MG TABLET PO SCH (21:17)
--- NOTE | 2019-06-05 06:00 | NUR ---
PATIENT ASLEEP, EASILY AROUSABLE. RESPIRATIONS EVEN. NO SIGNS OF PAIN NOTED. NO SYMPTOMS OF HYPER/HYPOGLYCEMIA. DUE MEDS GIVEN WITH NO ASE NOTED. NEEDS ATTENDED. KEPT CLEAN AND DRY. REPOSITIONED Q 2 HOURS. SAFETY PRECAUTIONS AND COMFORT MEASURES IN PLACE. WILL GIVE REPORT TO DAY SHIFT FOR CONTINUITY OF CARE.
[2019-06-05] MEDS: VANCOMYCIN 500 MG in IV D5W 100 ML IV SCH ×2 (06:35→17:01)
[2019-06-05] MEDS: INSULIN REGULAR, HUMAN 100 UNIT/ML 3 ML VIAL SQ PRN ×3 (06:36→22:45)
[2019-06-05] MEDS: BLOOD SUGAR DIAGNOSTIC 1 EACH STRIP IN SCH ×4 (06:36→22:35)
[2019-06-05 07:10] LABS: BASOPHILS % (AUTO) 0.3 % (0.0-2.0); EOSINOPHILS % (AUTO) 2.8 % (0.0-6.0); HEMATOCRIT 28 % (33-45); HEMOGLOBIN 9.3 g/dL (11.5-14.8); LYMPHOCYTES # (AUTO) 2.5 /CMM (0.8-4.8); LYMPHOCYTES % (AUTO) 25.9 % (20.0-44.0); MEAN CORPUSCULAR HGB CONC 33 g/dl (31.0-36.0); MEAN CORPUSCULAR VOLUME 83 fL (82-100); MONOCYTES # (AUTO) 0.7 /CMM (0.1-1.30); MONOCYTES % (AUTO) 7.2 % (2.0-12.0); NEUTROPHILS # (AUTO) 6.1 /CMM (1.8-8.9); NEUTROPHILS % (AUTO) 63.8 % (43.0-81.0); PLATELET COUNT (AUTO) 309 /CMM (150-450); RED BLOOD CELL COUNT(AUTO) 3.41 MIL/uL (4.0-5.2); WHITE BLOOD COUNT (AUTO) 9.5 K/uL (4.3-11.0)
[2019-06-05 07:40] LABS: CALCIUM, SERUM 9.4 mg/dL (8.5-10.1); CARBON DIOXIDE 25 mmol/L (21-32); CHLORIDE 107 mmol/L (98-107); CREATININE 0.5 mg/dL (0.6-1.3); GLUCOSE 159 mg/dL (74-106); MAGNESIUM 1.6 mg/dL (1.8-2.4); PHOSPHORUS 2.4 mg/dL (2.5-4.9); POTASSIUM 3.9 mmol/L (3.5-5.1); SODIUM SERUM 138 mmol/L (136-145); UREA NITROGEN, BLOOD 8 mg/dL (7-18)
[2019-06-05 08:00] VITALS: BP 130/52
[2019-06-05] MEDS: PROMETHAZINE HCL SYRUP 6.25 MG/5 ML UDC PO SCH ×4 (08:54→17:05)
[2019-06-05] MEDS: DOCUSATE SODIUM 100 MG CAPSULE PO SCH (08:54)
[2019-06-05] MEDS: LACTOBACILLUS RHAMNOSUS GG 1 EACH CAP.SPRINK PO SCH (08:54)
[2019-06-05] MEDS: ASCORBIC ACID 500 MG TABLET PO SCH (08:55)
[2019-06-05] MEDS: FOLIC ACID 1 MG TABLET PO SCH (08:55)
[2019-06-05] MEDS: LISINOPRIL (20MG) 20 MG TABLET PO SCH (08:55)
[2019-06-05] MEDS ORDERED: Magnesium 1GM/D5W 100ML PREMIX 100 ML IV SCH (09:26)
[2019-06-05] MEDS: Magnesium 1GM/D5W 100ML PREMIX 100 ML IV SCH ×2 (09:31→11:01)
[2019-06-05] MEDS: GLUCERNA SHAKE 237 ML CAN PO SCH ×2 (14:00→17:00)
[2019-06-05] MEDS ORDERED: NEUTRA PHOS 1 POWD.PACKET PO ONE (15:00)
[2019-06-05 16:00] VITALS: BP 144/62
--- NOTE | 2019-06-05 19:35 | NUR ---
RN NOTES RECEIVED PATIENT ASLEEP, NO SIGNS OF ACUTE DISTRESS NOTED, SAFETY MEASURES IN PLACE, ASPIRATION PRECAUTION EMPHASIZE, BED IN LOW LOCKED POSITION, IV ACCESS INTACT AND PATENT, REPOSITIONED FOR COMFORT, WILL CONTINUE TO MONITOR ACCORDINGLY.
[2019-06-05 20:00] VITALS: BP 116/65
--- NOTE | 2019-06-05 20:02 | NUR ---
PATIENT'S SON HAS SPOKEN TO DR. PHOEBE BROTHERS AND AGREES TO PROCEDURE, BUT WANTS TO TALK TO DR. DODSON FIRST. PER DR. DODSON, HE IS AWARE THAT THE SON WANTS TO TALK. PROVIDED SON'S NUMBER TO DR. DODSON.
[2019-06-05] MEDS: FLUCONAZOLE (100 MG) 100 MG TABLET PO SCH (21:29)
[2019-06-05] MEDS: LEVOFLOXACIN (250MG) 250 MG TABLET PO SCH (21:29)
[2019-06-05] MEDS: QUETIAPINE FUMARATE 25 MG TABLET PO SCH (21:30)
[2019-06-05] MEDS: AMLODIPINE BESYLATE 10 MG TABLET PO SCH (21:30)
[2019-06-05] MEDS: GABAPENTIN 300 MG CAPSULE PO SCH (21:30)
[2019-06-06] MEDS: VANCOMYCIN 500 MG in IV D5W 100 ML IV SCH ×2 (05:59→17:24)
[2019-06-06] MEDS: BLOOD SUGAR DIAGNOSTIC 1 EACH STRIP IN SCH ×4 (06:47→21:15)
--- NOTE | 2019-06-06 06:48 | NUR ---
RN NOTES ALL NEEDS ATTENDED AND MET, ABLE TO REST AND SLEEP WITH LONG INTERVALS, SAFETY MEASURES IN PLACE AT ALL TIMES, ASPIRATION PRECAUTION EMPHASIZE, WOUND DRESS DONE ORDERED, CALL LIGHT WITHIN EASY REACH. WILL ENDORSE TO AM NURSE FOR CONTINUITY OF CARE.
[2019-06-06 07:50] LABS: BASOPHILS % (AUTO) 0.5 % (0.0-2.0); EOSINOPHILS % (AUTO) 2.4 % (0.0-6.0); HEMATOCRIT 32 % (33-45); HEMOGLOBIN 10.1 g/dL (11.5-14.8); LYMPHOCYTES # (AUTO) 2.5 /CMM (0.8-4.8); LYMPHOCYTES % (AUTO) 28.8 % (20.0-44.0); MEAN CORPUSCULAR HGB CONC 32 g/dl (31.0-36.0); MEAN CORPUSCULAR VOLUME 84 fL (82-100); MONOCYTES # (AUTO) 0.7 /CMM (0.1-1.30); NEUTROPHILS # (AUTO) 5.3 /CMM (1.8-8.9); NEUTROPHILS % (AUTO) 60.3 % (43.0-81.0); PLATELET COUNT (AUTO) 336 /CMM (150-450); RED BLOOD CELL COUNT(AUTO) 3.73 MIL/uL (4.0-5.2); WHITE BLOOD COUNT (AUTO) 8.8 K/uL (4.3-11.0)
[2019-06-06 08:00] VITALS: BP 150/64
--- NOTE | 2019-06-06 08:00 | NUR ---
m/s slice cutting machine operator: vascular surgeon received written orders from dr. stewart. 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 per cn dr. stewart will call son today and to let him know on the plan of care.
[2019-06-06 08:02] LABS: CALCIUM, SERUM 10.1 mg/dL (8.5-10.1); CARBON DIOXIDE 25 mmol/L (21-32); CHLORIDE 105 mmol/L (98-107); CREATININE 0.4 mg/dL (0.6-1.3); GLUCOSE 144 mg/dL (74-106); MAGNESIUM 2.1 mg/dL (1.8-2.4); PHOSPHORUS 2.9 mg/dL (2.5-4.9); POTASSIUM 4.8 mmol/L (3.5-5.1); SODIUM SERUM 137 mmol/L (136-145); UREA NITROGEN, BLOOD 9 mg/dL (7-18)
--- NOTE | 2019-06-06 09:10 | NUR ---
shan/sonido kim: notes bedside report given to serafin yip) for continuity of care. Addendum: 06/06/19 at 1918 by HIREN BUTTS LVN above charting error, wrong time.
[2019-06-06] MEDS: GLUCERNA SHAKE 237 ML CAN PO SCH ×3 (09:18→17:23)
[2019-06-06] MEDS: ASCORBIC ACID 500 MG TABLET PO SCH (09:19)
[2019-06-06] MEDS: LISINOPRIL (20MG) 20 MG TABLET PO SCH (09:19)
[2019-06-06] MEDS: FOLIC ACID 1 MG TABLET PO SCH (09:19)
[2019-06-06] MEDS: DOCUSATE SODIUM 100 MG CAPSULE PO SCH (09:19)
[2019-06-06] MEDS: LACTOBACILLUS RHAMNOSUS GG 1 EACH CAP.SPRINK PO SCH (09:19)
[2019-06-06] MEDS: PROMETHAZINE HCL SYRUP 6.25 MG/5 ML UDC PO SCH ×3 (09:20→17:23)
--- NOTE | 2019-06-06 10:00 | NUR ---
m/s manager legal: notes placed a call to edelmira (dpoa) and ask if dr. stewart (vascular surgeon) has been in touch, stated, "no he hasn't called yet, i can wait for him until 1 o' clock, i have a lot of things to do after 1." informed son to wait for dr. stewart to call re: plan of care. will continue to monitor.
[2019-06-06] MEDS: INSULIN REGULAR, HUMAN 100 UNIT/ML 3 ML VIAL SQ PRN ×3 (12:10→21:19)
--- NOTE | 2019-06-06 12:50 | NUR ---
m/s copier field service technician: notes f/u made once more to edelmira (dpoa, son) and ask him if dr. stewart has called you re: plan of care on left lower extremity, stated, "no he hasn't called yet, i will wait for his call, i have a lot of things to do so, just let him know." f/u made to dr. stewart, left message to md's patient care secretary.
--- NOTE | 2019-06-06 14:00 | NUR ---
m/s digital printer: notes tx done to left foot gangrene wound by rn student with rn instructor present, kinjal. well. kept comfortable. elevate with pillow. reality orientation provided prn. will continue to monitor.
--- NOTE | 2019-06-06 14:50 | NUR ---
m/s carton folder: notes picc line nurse here and inserted mid line to left basilic/upper arm, gauge #18, kinjal. well.
[2019-06-06 16:00] VITALS: BP 137/68
--- NOTE | 2019-06-06 18:00 | NUR ---
m/s marine architect: notes dr. stewart here and asked md if has spoken to pt's son and he informed me that he already spoken to him over 2 hours ago and he agreed for the procedure.
--- NOTE | 2019-06-06 18:20 | NUR ---
m/s daycare manager: notes placed a call to best (dpoa, son) and consents obtained for left above knee amputation with anesthesia, and blood consents with another nurse as a witness over the phone. pt resting comfortable. needs attended. no distress noted. will continue to monitor.
--- NOTE | 2019-06-06 19:18 | NUR ---
m/s general office associate: notes bedside report given to serafin (rn) for continuity of care.
--- NOTE | 2019-06-06 19:20 | NUR ---
MS RN OPENING NOTES Patient received sleeping in bed, comfortable. Breathing even and unlabored. No in any distress. Midline in L upper arm intact and patent with no signs of infiltration. Safety measures in place; call light within reach, bed in low, locked position. Will continue to monitor accordingly
[2019-06-06 20:00] VITALS: BP 144/63
[2019-06-06 20:33] VITALS: BP 144/63
[2019-06-06] MEDS: FLUCONAZOLE (100 MG) 100 MG TABLET PO SCH (21:14)
[2019-06-06] MEDS: GABAPENTIN 300 MG CAPSULE PO SCH (21:14)
[2019-06-06] MEDS: LEVOFLOXACIN (250MG) 250 MG TABLET PO SCH (21:14)
[2019-06-06] MEDS: QUETIAPINE FUMARATE 25 MG TABLET PO SCH (21:15)
[2019-06-06] MEDS: AMLODIPINE BESYLATE 10 MG TABLET PO SCH (21:15)
--- NOTE | 2019-06-06 21:20 | NUR ---
RN NOTES BSL- 267mg/dL. 6units of insulin given per sliding scale.
[2019-06-07] MEDS: VANCOMYCIN 500 MG in IV D5W 100 ML IV SCH ×2 (05:09→18:34)
[2019-06-07] MEDS: BLOOD SUGAR DIAGNOSTIC 1 EACH STRIP IN SCH ×4 (06:36→21:20)
[2019-06-07] MEDS: INSULIN REGULAR, HUMAN 100 UNIT/ML 3 ML VIAL SQ PRN ×4 (06:37→21:31)
[2019-06-07 07:21] LABS: CALCIUM, SERUM 10.1 mg/dL (8.5-10.1); CARBON DIOXIDE 25 mmol/L (21-32); CHLORIDE 106 mmol/L (98-107); CREATININE 0.5 mg/dL (0.6-1.3); GLUCOSE 194 mg/dL (74-106); MAGNESIUM 1.8 mg/dL (1.8-2.4); PHOSPHORUS 2.7 mg/dL (2.5-4.9); SODIUM SERUM 137 mmol/L (136-145); UREA NITROGEN, BLOOD 9 mg/dL (7-18)
--- NOTE | 2019-06-07 07:25 | NUR ---
MS RN CLOSING NOTES Patient resting in bed. Breathing even and unlabored. Not in any distress, on room air. No complaints at this time. No acute changes overnight. All needs attended. Kept clean and dry. Turned and repositioned. Safety measures in place; call light within reach, bed in low, locked position. Endorsed EULA to AM RN
[2019-06-07 07:28] LABS: BASOPHILS # (AUTO) 0.1 /CMM (0.0-0.2); BASOPHILS % (AUTO) 0.5 % (0.0-2.0); EOSINOPHILS % (AUTO) 2.8 % (0.0-6.0); HEMATOCRIT 32 % (33-45); LYMPHOCYTES # (AUTO) 2.7 /CMM (0.8-4.8); MEAN CORPUSCULAR HGB CONC 31 g/dl (31.0-36.0); MEAN CORPUSCULAR VOLUME 85 fL (82-100); MONOCYTES # (AUTO) 0.9 /CMM (0.1-1.30); MONOCYTES % (AUTO) 8.1 % (2.0-12.0); NEUTROPHILS # (AUTO) 6.8 /CMM (1.8-8.9); NEUTROPHILS % (AUTO) 63.6 % (43.0-81.0); PLATELET COUNT (AUTO) 313 /CMM (150-450); RED BLOOD CELL COUNT(AUTO) 3.74 MIL/uL (4.0-5.2); WHITE BLOOD COUNT (AUTO) 10.7 K/uL (4.3-11.0)
--- NOTE | 2019-06-07 07:45 | NUR ---
RN OPENING NOTE PT WAS RECEIVED IN BED AT LOWEST AND LOCKED POSITION WITH SIDE RAILS UPX2, A/O X1-2 BREATHING EVEN AND UNLABORED ON RA, NO S/S OF ANY DISTRESS OR PAIN NOTED AT THIS TIME, MIDLINE IS PATEN AND INTACT, PLAN TO GET L AKA TOMORROW WITH CONSENTS SIGNED, SAFETY PRECAUTIONS IN PLACE, CALL LIGHT WITHIN REACH, WILL MONITOR PT ACCORDINGLY
[2019-06-07 08:00] VITALS: BP 129/64
--- NOTE | 2019-06-07 08:23 | NUR ---
WOUND CARE: PT MORE ALERT TODAY AND STATES THAT SHE HAD A STAGE 3 WOUND ON SACRUM PREVIOUSLY. CONTINUE ALL SKIN PROTECTION MEASURES. DISCUSSED WITH NURSING STAFF.
[2019-06-07 09:01] LABS: LYMPHOCYTES % (MANUAL) 23 % (16-48); NEUTROPHILS % (MANUAL) 67 (42-76)
[2019-06-07 09:02] LABS: EOSINOPHILS % (MANUAL) 1 % (0-4); MONOCYTES % (MANUAL) 9 % (0-11.0)
[2019-06-07] MEDS: PROMETHAZINE HCL SYRUP 6.25 MG/5 ML UDC PO SCH ×3 (09:06→16:22)
[2019-06-07] MEDS: DOCUSATE SODIUM 100 MG CAPSULE PO SCH (09:06)
[2019-06-07] MEDS: LISINOPRIL (20MG) 20 MG TABLET PO SCH (09:06)
[2019-06-07] MEDS: LACTOBACILLUS RHAMNOSUS GG 1 EACH CAP.SPRINK PO SCH (09:06)
[2019-06-07] MEDS: ASCORBIC ACID 500 MG TABLET PO SCH (09:06)
[2019-06-07] MEDS: FOLIC ACID 1 MG TABLET PO SCH (09:06)
[2019-06-07] MEDS: GLUCERNA SHAKE 237 ML CAN PO SCH ×3 (09:07→17:24)
[2019-06-07 16:00] VITALS: BP 156/78
--- NOTE | 2019-06-07 18:08 | NUR ---
RN CLOSING NOTE PT RESTING COMFORTABLY IN BED AT LOWEST AND LOCKED POSITION WITH SIDE RAILS UPX2, A/O X1-2 BREATHING EVEN AND UNLABORED WITH NO S/S OF ANY DISTRESS OR PAIN AT THIS TIME, MIDLINE IS PATENT AND INTACT, PLAN TO GET SURGERY FOR L AKA TOMORROW WITH CONSENTS SIGNED, SAFETY PRECAUTIONS IN PLACE, CALL LIGHT WITHIN REACH, ALL NEEDS ATTENDED TO, WILL ENDORSE TO FASHION STYLING INTERN RN FOR EULA.
--- NOTE | 2019-06-07 18:25 | NUR ---
RN NOTE AWAITING FOR PHARMACY TO BRING UP VANCOMYCIN AT THIS TIME
--- NOTE | 2019-06-07 18:35 | NUR ---
RN NOTE VANCO TROUGH WAS NOTED TO BE 14 TODAY, WILL ADMIN VANCO AT THIS TIME
--- NOTE | 2019-06-07 19:00 | NUR ---
MS HUMBERTO INITIAL NOTES RECEIVED REPORT FROM AM NURSE AND SEEN PT IN BED RESTING COMFORTABLE IN BED WITHOUT ANY DISTRESS NOTED. SKIN WARM AND DRY TO TOUCH WITH DRESSING DRY AND INTACT ON HER LEFT FOOT . KEPT HER WARM AND COMFORTABLE AT ALL TIMES. ISOLATION PRECAUTION IMPLEMENTED AND OBSERVED. WILL CONTINUE MONITORING.
[2019-06-07 20:00] VITALS: BP 144/64
[2019-06-07] MEDS: QUETIAPINE FUMARATE 25 MG TABLET PO SCH (21:19)
[2019-06-07] MEDS: LEVOFLOXACIN (250MG) 250 MG TABLET PO SCH (21:20)
[2019-06-07] MEDS: FLUCONAZOLE (100 MG) 100 MG TABLET PO SCH (21:20)
[2019-06-07] MEDS: GABAPENTIN 300 MG CAPSULE PO SCH (21:20)
[2019-06-07] MEDS: AMLODIPINE BESYLATE 10 MG TABLET PO SCH (21:20)
--- NOTE | 2019-06-07 22:00 | NUR ---
ms law examiner notes blood sugar checked done 214, 4 units of insulin given mo SQ as ordered on different site from the previous one. no signs of hyper/hypo glycemia noted. due meds given with apple sauce and water and pt tolerated well no aspiration noted. kept her warm and comfortable at all times. on semi fowlers position with side rails x3 up . will continue monitoring.
--- NOTE | 2019-06-08 | NUR ---
ms julio notes seen pt bed sleeping comfortably in bed without any distress noted. IVF NS at 50ml/hr started to infused as ordered. kept her warm and comfortable at all times. place call light at reach will continue monitoring.
[2019-06-08] MEDS: IV NS 0.9% 1,000 ML IV SCH ×2 (00:55→20:41)
--- NOTE | 2019-06-08 05:33 | NUR ---
ms pnp notes pt remains sleeping comfortably in bed without any distress noted. IVF NS at 50ml/hr infusing well. no redness noted. kept her warm and comfortable at all times. will continue monitoring. bed alarm set for safety.
[2019-06-08] MEDS: VANCOMYCIN 500 MG in IV D5W 100 ML IV SCH ×2 (05:46→17:08)
[2019-06-08] MEDS: BLOOD SUGAR DIAGNOSTIC 1 EACH STRIP IN SCH ×4 (06:24→21:09)
[2019-06-08] MEDS: INSULIN REGULAR, HUMAN 100 UNIT/ML 3 ML VIAL SQ PRN ×4 (06:25→21:12)
--- NOTE | 2019-06-08 06:53 | NUR ---
ms commutator presser closing notes morning care done and skin treatment also done. Stable mo the night and slept well. all due meds given and all needs met. blood sugar checked done 158, no insulin due at this time because pt is NPO for surgery today. IVF NS at 50ml/hr still infusing on her left forearm. kept her warm and comfortable at all times. Isolation precaution implemented and observed.endorse to am nurse for continuity of care.
[2019-06-08 07:04] LABS: BASOPHILS % (AUTO) 0.3 % (0.0-2.0); EOSINOPHILS % (AUTO) 2.7 % (0.0-6.0); HEMATOCRIT 28 % (33-45); LYMPHOCYTES # (AUTO) 2.1 /CMM (0.8-4.8); MEAN CORPUSCULAR HGB CONC 33 g/dl (31.0-36.0); MEAN CORPUSCULAR VOLUME 83 fL (82-100); MONOCYTES # (AUTO) 0.7 /CMM (0.1-1.30); MONOCYTES % (AUTO) 7.1 % (2.0-12.0); NEUTROPHILS # (AUTO) 6.5 /CMM (1.8-8.9); NEUTROPHILS % (AUTO) 67.9 % (43.0-81.0); PLATELET COUNT (AUTO) 328 /CMM (150-450); RED BLOOD CELL COUNT(AUTO) 3.32 MIL/uL (4.0-5.2); WHITE BLOOD COUNT (AUTO) 9.6 K/uL (4.3-11.0)
--- NOTE | 2019-06-08 07:11 | NUR ---
RN OPENING NOTE PT WAS RECEIVED IN BED AT LOWEST AND LOCKED POSITION WITH SIDE RAILS UPX2, A/O X1-2 BREATHING EVEN AND UNLABORED ON RA, NO S/S OF ANY DISTRESS OR PAIN NOTED AT THIS TIME, MIDLINE IS PATENT AND INTACT, PLANNED SURGERY TODAY FOR LEFT AKA WITH CONSENTS SIGNED, SAFETY PRECAUTIONS IN PLACE, CALL LIGHT WITHIN REACH, WILL MONITOR PT ACCORDINGLY
[2019-06-08 07:25] LABS: CALCIUM, SERUM 9.7 mg/dL (8.5-10.1); CARBON DIOXIDE 26 mmol/L (21-32); CHLORIDE 105 mmol/L (98-107); CREATININE 0.5 mg/dL (0.6-1.3); GLUCOSE 181 mg/dL (74-106); MAGNESIUM 1.6 mg/dL (1.8-2.4); PHOSPHORUS 2.7 mg/dL (2.5-4.9); SODIUM SERUM 137 mmol/L (136-145); UREA NITROGEN, BLOOD 11 mg/dL (7-18)
[2019-06-08 08:00] VITALS: BP 119/53
[2019-06-08] MEDS: GLUCERNA SHAKE 237 ML CAN PO SCH ×3 (08:00→16:35)
[2019-06-08] MEDS: PROMETHAZINE HCL SYRUP 6.25 MG/5 ML UDC PO SCH ×3 (08:40→16:35)
[2019-06-08] MEDS: FOLIC ACID 1 MG TABLET PO SCH (08:40)
[2019-06-08] MEDS: DOCUSATE SODIUM 100 MG CAPSULE PO SCH (08:40)
[2019-06-08] MEDS: LISINOPRIL (20MG) 20 MG TABLET PO SCH (08:40)
[2019-06-08] MEDS: LACTOBACILLUS RHAMNOSUS GG 1 EACH CAP.SPRINK PO SCH (08:40)
[2019-06-08] MEDS: ASCORBIC ACID 500 MG TABLET PO SCH (08:41)
--- NOTE | 2019-06-08 08:44 | NUR ---
LARS GREGORY AM MEDS HELD DUE TO NPO DIAGNOSIS FOR SURGERY Addendum: 06/08/19 at 0844 by ROXY THOMAS RN JARAD GOODWIN MEDS SARWAT
[2019-06-08] MEDS: Magnesium 1GM/D5W 100ML PREMIX 100 ML IV SCH ×2 (08:55→09:47)
[2019-06-08] MEDS ORDERED: Magnesium 1GM/D5W 100ML PREMIX 100 ML IV SCH (09:00)
[2019-06-08] MEDS ORDERED: BUPIVACAINE 0.5 % PF 150 MG/30 ML VIAL ONE (14:42)
[2019-06-08] MEDS ORDERED: BACITRACIN 50000 UNITS/VIAL ONE (14:42)
[2019-06-08] MEDS ORDERED: HYDROMORPHONE INJ 2 MG/ML DISP.SYRIN ONE (14:47)
--- NOTE | 2019-06-08 16:20 | NUR ---
RN NOTE PT BROUGHT BACK UP FROM S/P LEFT AKA SURGERY AT THIS TIME, VS WNL BP 134/71 P 64 O2 97% ON 2L VIA NC TEMP 97.9, MEME DRAIN NOTED IN LEFT LOWER EXTREMITY DRAINING, SAFETY PRECAUTIONS IN PLACE, CALL LIGHT WITHIN REACH, WILL MONITOR ACCORDINGLY.
--- NOTE | 2019-06-08 17:14 | NUR ---
LARS NOTE INSULIN NOT GIVEN AT THIS TIME DUE TO PT BEING LETHARGIC Addendum: 06/08/19 at 1715 by ROXY THOMAS RN INSULIN NOT GIVEN AT THIS TIME DUE TO PT BEING LETHARGIC S/P SURGERY
--- NOTE | 2019-06-08 18:43 | NUR ---
RN CLOSING NOTE PT IN BED AT LOWEST AND LOCKED POSITION WITH SIDE RAILS UPX2, A/O X1-2 BREATHING EVEN AND UNLABORED ON 2L VIA NC, NO S/S OF ANY DISTRESS OR PAIN NOTED AT THIS TIME, MIDLINE IS PATENT AND INTACT, S/P LEFT AKA TODAY WITH MEME DRAIN IN PLACE WITH 18ML OF DRAINAGE AT THIS, VS WNL, SAFETY PRECAUTIONS IN PLACE, CALL LIGHT WITHIN REACH, ALL NEEDS ATTENDED TO, WILL ENDORSE TO ELEVATOR EXAMINER AND ADJUSTER RN FOR EULA.
--- NOTE | 2019-06-08 19:32 | NUR ---
MS RN RECEIVE PT IN BED A/O X 1, STABLE, RESPIRATIONS EVEN AND UNLABORED, SAFETY MEASURES IN PLACE. WILL CONTINUE TO MONITOR
[2019-06-08 20:00] VITALS: BP 107/50
[2019-06-08] MEDS: FLUCONAZOLE (100 MG) 100 MG TABLET PO SCH (21:02)
[2019-06-08] MEDS: GABAPENTIN 300 MG CAPSULE PO SCH (21:03)
[2019-06-08] MEDS: AMLODIPINE BESYLATE 10 MG TABLET PO SCH (21:03)
[2019-06-08] MEDS: LEVOFLOXACIN (250MG) 250 MG TABLET PO SCH (21:03)
[2019-06-08] MEDS: QUETIAPINE FUMARATE 25 MG TABLET PO SCH (21:03)
[2019-06-09] VITALS: BP 125/66
[2019-06-09 04:00] VITALS: BP 111/52
[2019-06-09] MEDS: VANCOMYCIN 500 MG in IV D5W 100 ML IV SCH ×2 (05:03→17:51)
--- NOTE | 2019-06-09 06:21 | NUR ---
MS RN ASLEEP AND EASILY AWAKEN, ON 2LPM VIA NC 02 SAT 99%. VS WNL. RESPIRATIONS EVEN AND UNLABORED. STABLE, SLEPT WELL THROUGHOUT THE NIGHT. KEPT CLEAN AND DRY AND COMFORTABLE. NEEDS ATTENDED AND ANTICIPATED, AM CARE RENDERED. MEME DRAIN 75 ML OUTPUT SEROSANGUINEOUS. S/P LEFT AKA DRESSING INTACT CLEAN AND DRY. SAFETY MEASURES AT ALL TIMES. ENDORSE TO THE NEXT SHIFT.
[2019-06-09] MEDS: BLOOD SUGAR DIAGNOSTIC 1 EACH STRIP IN SCH ×4 (06:29→21:27)
[2019-06-09] MEDS: INSULIN REGULAR, HUMAN 100 UNIT/ML 3 ML VIAL SQ PRN ×4 (06:31→21:46)
[2019-06-09 06:51] LABS: CALCIUM, SERUM 9.5 mg/dL (8.5-10.1); CARBON DIOXIDE 26 mmol/L (21-32); CHLORIDE 106 mmol/L (98-107); CREATININE 0.6 mg/dL (0.6-1.3); GLUCOSE 219 mg/dL (74-106); PHOSPHORUS 2.9 mg/dL (2.5-4.9); POTASSIUM 4.5 mmol/L (3.5-5.1); SODIUM SERUM 137 mmol/L (136-145); UREA NITROGEN, BLOOD 16 mg/dL (7-18)
[2019-06-09 07:06] LABS: BASOPHILS % (AUTO) 0.1 % (0.0-2.0); EOSINOPHILS % (AUTO) 0.1 % (0.0-6.0); HEMATOCRIT 27 % (33-45); HEMOGLOBIN 8.8 g/dL (11.5-14.8); LYMPHOCYTES # (AUTO) 1.2 /CMM (0.8-4.8); LYMPHOCYTES % (AUTO) 11.6 % (20.0-44.0); MEAN CORPUSCULAR HGB CONC 32 g/dl (31.0-36.0); MEAN CORPUSCULAR VOLUME 84 fL (82-100); MONOCYTES # (AUTO) 0.5 /CMM (0.1-1.30); MONOCYTES % (AUTO) 5.2 % (2.0-12.0); NEUTROPHILS # (AUTO) 8.6 /CMM (1.8-8.9); PLATELET COUNT (AUTO) 333 /CMM (150-450); RED BLOOD CELL COUNT(AUTO) 3.26 MIL/uL (4.0-5.2); WHITE BLOOD COUNT (AUTO) 10.4 K/uL (4.3-11.0)
--- NOTE | 2019-06-09 08:00 | NUR ---
m/s umbrella mender: initial assessment received pt in bed awake, alert to name only. s/p left aka with dressing intact, clean, and dry with harvinder drain suction attached. unable to assess site due to unremovable dressing. all supplies at bedside for dr. stewart to change dressing. no s/s of acute distress noted. reality orientation provided prn. will continue to monitor.
[2019-06-09] MEDS: LACTOBACILLUS RHAMNOSUS GG 1 EACH CAP.SPRINK PO SCH (08:50)
[2019-06-09] MEDS: FOLIC ACID 1 MG TABLET PO SCH (08:50)
[2019-06-09] MEDS: ASCORBIC ACID 500 MG TABLET PO SCH (08:51)
[2019-06-09] MEDS: DOCUSATE SODIUM 100 MG CAPSULE PO SCH (08:51)
[2019-06-09] MEDS: LISINOPRIL (20MG) 20 MG TABLET PO SCH (08:51)
[2019-06-09] MEDS: GLUCERNA SHAKE 237 ML CAN PO SCH ×3 (08:52→16:55)
[2019-06-09] MEDS: PROMETHAZINE HCL SYRUP 6.25 MG/5 ML UDC PO SCH ×3 (08:54→17:15)
[2019-06-09 09:36] VITALS: BP 133/70
--- NOTE | 2019-06-09 10:39 | NUR ---
m/s elevated work platform operator: md visit seen and examined by willem johnson (acnp) at this time. for d'c planning.
[2019-06-09] MEDS ORDERED: IV NS 0.9% 1,000 ML IV PRN (10:42)
--- NOTE | 2019-06-09 11:34 | NUR ---
m/s mixing plant operator: notes received order from willem (acnp) to discharge pt after harvinder drain is removed by the surgeon. case management to make arrangement.
--- NOTE | 2019-06-09 15:00 | NUR ---
m/s cloth washer back tender: notes dottie (son) here visiting and aware of d'c planning. all questions answered. pt resting comfortable. no distress noted. dressing to left stump remains intact, clean, and dry with harvinder drain attached to suction bulb. will continue to monitor.
--- NOTE | 2019-06-09 16:00 | NUR ---
m/s living nurse: notes cn informed me that pt for possible d'c to snf today after seen by dr. stewart and id. sinclair (son) here and made aware.
[2019-06-09 16:17] VITALS: BP 112/52
--- NOTE | 2019-06-09 16:50 | NUR ---
m/s brake repair supervisor: kimber graves (case management) met with son at bedside and informed him re: [facility]. awaiting for dr. stewart and id consult. ambulance on will call.
--- NOTE | 2019-06-09 18:40 | NUR ---
m/s donor services team leader: vascular surgeon f/u dr. stewart at bedside and removed the harvinder drain bulb, kinjal. well. asked dr. stewart if pt needs the antibiotic and informed me that she doesn't need it anymore. pt needs daily dressing change as stated with betadine and dry dressing to left stump. willem (acnp) notified and made aware re: dr. stewart's recommendation with order to hold discharge to snf today and will discharge pt back to board and care tomorrow. cn made aware.
--- NOTE | 2019-06-09 19:10 | NUR ---
m/s supervisor engines road: notes report given to anne marie (rn) for continuity of care.
--- NOTE | 2019-06-09 19:50 | NUR ---
MS RN NOTES RECEIVED RESTING COMFORTABLY ON BED,BREATHING REGULAR,NOT IN ANY FORM OF DISTRESS.S/P LEFT AKA,MEME DRAIN JUST REMOVED BY DR DODSON TODAY.DRESSING INTACT AND DRY BOTH AKA ELEVATED ON PILLOWS.WITH LEFT UPPER ARM MIDLINE,NS AT 50ML/HR RATE IN PROGRESS.[employer] MATTRESS IN USED FOR SKIN MANAGEMENT.REPOSITION PER PROTOCOL.WILL CONTINUE TO MONITOR STATUS.
[2019-06-09 20:00] VITALS: BP 122/61
[2019-06-09 20:35] VITALS: BP 122/61
--- NOTE | 2019-06-09 21:00 | NUR ---
MS RN NOTES DUE PO MEDS ADMINISTERED WITH APPLE SAUCE,TAKEN WELL.NEGATIVE FOR ASPIRATION.
[2019-06-09] MEDS: FLUCONAZOLE (100 MG) 100 MG TABLET PO SCH (21:26)
[2019-06-09] MEDS: LEVOFLOXACIN (250MG) 250 MG TABLET PO SCH (21:26)
[2019-06-09] MEDS: AMLODIPINE BESYLATE 10 MG TABLET PO SCH (21:27)
[2019-06-09] MEDS: QUETIAPINE FUMARATE 25 MG TABLET PO SCH (21:27)
[2019-06-09] MEDS: GABAPENTIN 300 MG CAPSULE PO SCH (21:28)
--- NOTE | 2019-06-09 21:30 | NUR ---
MS RN NOTES ACCU-CHECK BLOOD SUGAR CHECK 217,COVERED WITH HUMULIN R 4 UNITS PER SLIDING SCALE,GIVEN SQ ON LEFT DELTOID.MILK SUPPLEMENT AT BEDSIDE.
--- NOTE | 2019-06-10 05:04 | NUR ---
MS RN NOTES MORNING CARE RENDERED WITH JERI LEACH.NOTED FACIAL GRIMACE.C/O PAIN ON LEFT LEG AKA 4/10 ON PAIN SCALE.ULTRAM 50MG PO GIVEN WITH APPLE SAUCE,TAKEN WELL
[2019-06-10] MEDS: VANCOMYCIN 500 MG in IV D5W 100 ML IV SCH (05:21)
[2019-06-10] MEDS: BLOOD SUGAR DIAGNOSTIC 1 EACH STRIP IN SCH ×2 (05:25→11:10)
[2019-06-10] MEDS: INSULIN REGULAR, HUMAN 100 UNIT/ML 3 ML VIAL SQ PRN ×2 (05:29→11:57)
--- NOTE | 2019-06-10 05:30 | NUR ---
MS RN NOTES ACCU-CHECK BLOOD SUGAR CHECK 130,NO INSULIN COVERAGE PER MILD SLIDING SCALE.
--- NOTE | 2019-06-10 06:27 | NUR ---
MS RN NOTES ON BED SLEEPING,IVF IN PROGRESS AT 50ML/HR RATE VIA LEFT UPPER ARM MIDLINE.MEPILEX IN PLACE ON SACRAL AREA.PAIN MANAGEMENT EFFECTIVE.REPOSITION PER PROTOCOL.CALL LIGHT IN REACH,NEEDS ATTENDED.POSSIBLE D/C TODAY TO BOARD AND CARE INSTEAD OF SNF,CASE MANAGEMENT TO ARRANGE.WILL ENDORSE TO NORMA SOUSA FOR EULA.
[2019-06-10] MEDS: GLUCERNA SHAKE 237 ML CAN PO SCH ×2 (07:59→11:58)
[2019-06-10 08:00] VITALS: BP 136/55
[2019-06-10 08:01] VITALS: BP 136/55
[2019-06-10] MEDS: LISINOPRIL (20MG) 20 MG TABLET PO SCH (08:01)
[2019-06-10] MEDS: DOCUSATE SODIUM 100 MG CAPSULE PO SCH (08:17)
[2019-06-10] MEDS: ASCORBIC ACID 500 MG TABLET PO SCH (08:18)
[2019-06-10] MEDS: LACTOBACILLUS RHAMNOSUS GG 1 EACH CAP.SPRINK PO SCH (08:18)
[2019-06-10] MEDS: FOLIC ACID 1 MG TABLET PO SCH (08:18)
[2019-06-10] MEDS: PROMETHAZINE HCL SYRUP 6.25 MG/5 ML UDC PO SCH ×2 (08:25→12:00)
[2019-06-10] MEDS: HYDROCODONE/APAP 5/325MG 1 EACH TABLET PO PRN (08:43)
--- NOTE | 2019-06-10 17:01 | NUR ---
ROTARY FURNACE TENDER NOTES REPORT GIVEN TO GAURAV AT [facility]. ALL PATIENT BELONGINGS TAKEN WITH PATIENT AT DISCHARGE. IVS AND ID BAND REMOVED. ALL DISCHARGE PAPERWORK TAKEN WITH IMAGING TECHNICIAN AT DISCHARGE. PATIENT UNABLE TO SIGN DUE TO CONDITION, X2 RNS SIGNED ALL DISCHARGE PAPER WORK. PT LEFT UNIT VIA GURNEY AT 1700 VIA [facility] WITH 2 IMAGING TECHNICIAN.
--- NOTE | 2019-06-16 14:04 | NUR ---
LATE NOTE NO PICTURES TAKEN OF AKA DUE TO NON REMOVABLE DRESSING.
== END 2019-06-10 17:00 | DRG 239 ==
LOC: ER 17:20 → MED 20:06
PROVIDERS: ADMIT Nurse Practitioner Acute Care; ATTEND Registered Nurse
PROC: 05HC33Z Insertion of Infusion Device into Left Basilic Vein, Percutaneous Approach (ICD-10-PCS; 2019-06-06)
PROC: 0Y6D0Z2 Detachment at Left Upper Leg, Mid, Open Approach (ICD-10-PCS; principal; 2019-06-08)
DX: E11.52 Type 2 diabetes mellitus with diabetic peripheral angiopathy with gangrene (principal); G93.41 Metabolic encephalopathy; I21.A1 Myocardial infarction type 2; E43 Unspecified severe protein-calorie malnutrition; A48.0 Gas gangrene; D68.59 Other primary thrombophilia; N39.0 Urinary tract infection, site not specified; L03.116 Cellulitis of left lower limb; E87.0 Hyperosmolality and hypernatremia; N17.9 Acute kidney failure, unspecified; R78.81 Bacteremia; M86.9 Osteomyelitis, unspecified; I48.91 Unspecified atrial fibrillation; I11.0 Hypertensive heart disease with heart failure; I50.9 Heart failure, unspecified; Z89.611 Acquired absence of right leg above knee; Z79.84 Long term (current) use of oral hypoglycemic drugs; Z79.899 Other long term (current) drug therapy; E78.5 Hyperlipidemia, unspecified; E83.42 Hypomagnesemia; E83.52 Hypercalcemia; E86.1 Hypovolemia; E87.6 Hypokalemia; I70.0 Atherosclerosis of aorta; F03.90 Unspecified dementia, unspecified severity, without behavioral disturbance, psychotic disturbance, mood disturbance, and anxiety; Z79.01 Long term (current) use of anticoagulants; Z66 Do not resuscitate; D63.8 Anemia in other chronic diseases classified elsewhere; E86.0 Dehydration; E11.65 Type 2 diabetes mellitus with hyperglycemia; R62.7 Adult failure to thrive; E87.8 Other disorders of electrolyte and fluid balance, not elsewhere classified; Z89.422 Acquired absence of other left toe(s); B96.89 Other specified bacterial agents as the cause of diseases classified elsewhere; E11.69 Type 2 diabetes mellitus with other specified complication; E83.39 Other disorders of phosphorus metabolism
CPT/HCPCS: 36415; 36569; 71045-TC; 80048-TC; 80053-TC; 80061-TC; 80076-TC; 80202-TC; 81000-TC; 82962-TC; 83605-TC; 83735-TC; 84100-TC; 84443-TC; 84484-TC; 85025-TC; 85730-TC; 86850-TC; 86921-TC; 87040-TC; 87070-TC; 87081-TC; 87086-TC; 87186-TC; 88309-TC; 88311-TC; A4216; A6253; A6403; A9563; G0378; J0690; J1100; J1170; J1450; J1815; J1885; J1956; J2405; J2543; J2704; J3370; J3475; J3490; J7030; J7050; J7060; Q0169

== ENCOUNTER 2019-08-08 17:01 | Inpatient (IN) | payer MEDICARE ==
[2019-08-08] VITALS (8 sets, daily range): BP systolic 104–123; BP diastolic 58–69
[~2019-08-08] VITALS: Ht 104.1 cm; Wt 53.5 kg
[~2019-08-08 17:01] MED LIST changes: +DOCU-141 PO; +ESZO3TAB27 PO; +GABA-534 PO; +GLIP5TAB3 PO; -HYDR-4077 PO; -LEVO500T75 PO; +PROM118S4 PO; -THIA100T13 PO; +TRAM50TA2 PO
--- NOTE | 2019-08-08 17:05 | NUR ---
BIB B & C IVORY POLISHER, NOT EATING. PATIENT RESPONSIVE TO PAIN ONLY. CHANGED INTO GOWN, ATTACHED TO THE STEVEDORE DOCK, NOTED TO BE TACHYCARDIC. PATIENT WITH RECTAL TEMP OF 101.8. HOT TO TOUCH. PATIENT NOTED WITH SACRAL WOUND. IV LINE ESTABLISHED ON LEFT AND RIGHT FOREARM G20.
[2019-08-08] MEDS ORDERED: ACETAMINOPHEN 650 MG/SUPP.RECT RC ONE ×2 (17:29→17:30)
[2019-08-08] MEDS ORDERED: IV NS 0.9% 1,000 ML BAG IV ONE ×4 (17:30→19:00)
[2019-08-08] MEDS ORDERED: GLIP5TAB3 PO (17:30)
[2019-08-08 17:33] LABS: BASOPHILS % (AUTO) 0.2 % (0.0-2.0); EOSINOPHILS % (AUTO) 0.1 % (0.0-6.0); HEMATOCRIT 43 % (33-45); HEMOGLOBIN 13.3 g/dL (11.5-14.8); LYMPHOCYTES % (AUTO) 14.9 % (20.0-44.0); MEAN CORPUSCULAR HGB CONC 31 g/dl (31.0-36.0); MEAN CORPUSCULAR VOLUME 92 fL (82-100); MONOCYTES # (AUTO) 0.6 /CMM (0.1-1.30); MONOCYTES % (AUTO) 2.8 % (2.0-12.0); NEUTROPHILS # (AUTO) 16.7 /CMM (1.8-8.9); PLATELET COUNT (AUTO) 266 /CMM (150-450); RED BLOOD CELL COUNT(AUTO) 4.66 MIL/uL (4.0-5.2); WHITE BLOOD COUNT (AUTO) 20.3 K/uL (4.3-11.0)
[2019-08-08] MEDS ORDERED: INSULIN REGULAR, HUMAN 100 UNIT/ML 10 ML VIAL ONE (17:56)
[2019-08-08] MEDS ORDERED: INSULIN REGULAR, HUMAN 100 UNIT/ML 10 ML VIAL IV ONE (18:00)
[2019-08-08 18:12] LABS: APPEARANCE,URINE Turbid (CLEAR); BILIRUBIN,URINE SMALL (NEGATIVE); BLOOD, URINE Moderate Ery/uL (NEGATIVE); COLOR,URINE Dark (YELLOW); KETONES,URINE Trace (NEGATIVE); LEUKOCYTE ESTERASE ,URINE Large (NEGATIVE); NITRITE, URINE Negative (NEGATIVE); PH,URINE 8.5 (5.0-8.0); PROTEIN,URINE >=300 mg/dl (NEGATIVE); UGLUCOSE Negative (NEGATIVE); UROBILINOGEN,URINE 0.2 EU/dL (0.2)
[2019-08-08 18:21] LABS: ALANINE AMINOTRANSFERASE 28 U/L (12-78); ALBUMIN 2.4 g/dL (3.4-5.0); ALKALINE PHOSPHATASE 111 U/L (46-116); ASPARTATE AMINOTRANSFERASE 32 U/L (15-37); BILIRUBIN,DIRECT 0.1 mg/dL (0.0-0.2); BILIRUBIN,TOTAL 0.6 mg/dL (0.2-1.0); CALCIUM, SERUM 10.9 mg/dL (8.5-10.1); CARBON DIOXIDE 18 mmol/L (21-32); CREATININE 2.9 mg/dL (0.6-1.3); POTASSIUM 5.7 mmol/L (3.5-5.1); TOTAL PROTEIN, SERUM 7.5 g/dL (6.4-8.2)
[2019-08-08 18:25] LABS: CHLORIDE 127 mmol/L (98-107); GLUCOSE 564 mg/dL (74-106); SODIUM SERUM 164 mmol/L (136-145); UREA NITROGEN, BLOOD 107 mg/dL (7-18)
[2019-08-08] MEDS ORDERED: PIPERACILLIN /TAZOBACTAM 3.375 G in IV D5W 50 ML IV SCH (18:30)
--- NOTE | 2019-08-08 18:44 | NUR ---
REPORT GIVEN TO NURYS SOSUA.
[2019-08-08 19:03] LABS: WBC,URINE TOO NUMEROUS TO COUN /HPF (0-3)
[2019-08-08 19:05] LABS: BACTERIA,URINE 4+ /HPF (None Seen); SQUAMOUS EPITHELIAL CELL,UR Few /HPF (None Seen)
--- NOTE | 2019-08-08 19:25 | NUR ---
ENDORSED TO GISEL FORDE. DR. GARNETT ACCEPTED THE PATIENT.
[2019-08-08] MEDS ORDERED: DEXTROSE 50%-WATER 50 ML DISP.SYRIN IV PRN (20:00)
[2019-08-08] MEDS ORDERED: MAG HYDROX/AL HYDROX/SIMETH 30 ML UDC PO PRN (20:00)
[2019-08-08] MEDS ORDERED: ONDANSETRON HCL/PF 4 MG/2 ML VIAL IVP PRN (20:00)
[2019-08-08] MEDS ORDERED: MAGNESIUM HYDROXIDE 30 ML UDC PO PRN (20:00)
[2019-08-08] MEDS ORDERED: Z GUARD REMEDY 2 OZ OINT TP PRN (20:00)
--- NOTE | 2019-08-08 20:45 | NUR ---
pt was transferred to icu under ACLS.
--- NOTE | 2019-08-08 22:00 | NUR ---
CASHIER. ADMISSION. RECEIVED THE PT FROM ER VIA [facility]. PT IS VERY LETHARGIC, DOES NOT FOLLOW COMMANDS. IV RT AND LT HAND 20G. IVF NS BOLUS RUNNING. FC PATENT. URINE DRAINING. MENDOZA AKA. OXYGEN 2L VIA NASAL CANNULA. SAT 94%, NO ACUTE DISTRESS NOTED. PRINCIPAL STATISTICAL PROGRAMMER SHOWING AFIB CONTROLLED. HOB ELEVATED. AFEBRILE. MULTIPLE WOUND NOTED, [employer] MATTRESS AND WOUND CONSULTATION ORDERED, PT IS NPO. HOB ELEVATED. WILL CONTINUE TO MONITOR VITALS.
[2019-08-09] VITALS (43 sets, daily range): BP systolic 89–135; BP diastolic 52–78
--- NOTE | 2019-08-09 | NUR ---
DIRECTOR IT. ABG DONE. RESULT MD GARNETT MADE AWARE
[2019-08-09] MEDS: BLOOD SUGAR DIAGNOSTIC 1 EACH STRIP VI SCH ×5 (00:29→21:47)
[2019-08-09] MEDS: *INSULIN REGULAR(HUMULIN R)HUM 100 UNIT/ML VIAL SQ PRN ×2 (00:32→21:57)
[2019-08-09] MEDS ORDERED: HEPARIN INFUSION/D5W 500 ML IV PRN (01:30)
[2019-08-09] MEDS: IV 1/2NS 1000 ML 1,000 ML IV PRN ×2 (02:30→08:05)
[2019-08-09] MEDS ORDERED: HEPARIN SODIUM, PORCINE 5000 UNITS/1 ML VIAL IVP ONE (03:30)
[2019-08-09] MEDS: PIPERACILLIN /TAZOBACTAM 2.25 G in IV D5W 50 ML IV SCH ×3 (03:50→20:29)
[2019-08-09] MEDS ORDERED: HEPARIN INFUSION/D5W 500 ML IV ONE (03:58)
[2019-08-09] MEDS ORDERED: HEPARIN SODIUM, PORCINE 5000 UNITS/1 ML VIAL IV ONE (04:00)
[2019-08-09 04:50] LABS: BASOPHILS % (AUTO) 0.1 % (0.0-2.0); EOSINOPHILS % (AUTO) 0.1 % (0.0-6.0); HEMATOCRIT 35 % (33-45); LYMPHOCYTES # (AUTO) 2.2 /CMM (0.8-4.8); LYMPHOCYTES % (AUTO) 10.5 % (20.0-44.0); MEAN CORPUSCULAR HGB CONC 32 g/dl (31.0-36.0); MEAN CORPUSCULAR VOLUME 89 fL (82-100); MONOCYTES # (AUTO) 0.6 /CMM (0.1-1.30); NEUTROPHILS # (AUTO) 17.8 /CMM (1.8-8.9); NEUTROPHILS % (AUTO) 86.3 % (43.0-81.0); PLATELET COUNT (AUTO) 165 /CMM (150-450); WHITE BLOOD COUNT (AUTO) 20.6 K/uL (4.3-11.0)
--- NOTE | 2019-08-09 05:10 | NUR ---
CONTENT CHECKER. AM CARE, ORAL CARE, BED BATH GIVEN. LINEN CHANGED. REMAINING SAME OXYGEN TOLERATED WELL. SAT 98%, NO ACUTE DISTRESS NOTED, MECHANICAL FACILITIES TECHNICIAN SHOWING AFIB. HOB ELEVATED. PT IS MORE AWAKE THAN ON ADMISSION. IV RT AND LT HAND 20G. IVF 1/2NS 100ML/H,HEPARIN DRIP 600UNIT/H, HOB ELEVATED. AFEBRILE. TURN AND REPOSITION Q2H. WILL CONTINUE TO MONITOR VITALS.
[2019-08-09 05:20] LABS: CARBON DIOXIDE 19 mmol/L (21-32); CREATININE 1.8 mg/dL (0.6-1.3); GLUCOSE 304 mg/dL (74-106); MAGNESIUM 2.2 mg/dL (1.8-2.4); PHOSPHORUS 1.6 mg/dL (2.5-4.9); POTASSIUM 3.3 mmol/L (3.5-5.1); UREA NITROGEN, BLOOD 78 mg/dL (7-18)
[2019-08-09 05:27] LABS: CHLORIDE 134 mmol/L (98-107); SODIUM SERUM 165 mmol/L (136-145)
--- NOTE | 2019-08-09 07:30 | NUR ---
WAITER WAITRESS INITIAL NOTE RECEIVED PATIENT ASLEEP, AROUSABLE, DOESN'T FOLLOW COMMANDS, SLEEPY. NO RESPIRATORY DISTRESS NOTED ON 2LPMO2 VIA NC. SKIN WARM AND DRY TO TOUCH. ABDOMEN SOFT, NON-DISTENDED. ON TELE MONITOR SR. F/C PATENT, IN PLACE, AND DRAINING BY GRAVITY. PERIPHERAL IV'S PRESENT, PATENT AND INTACT. WITH IVF AND HEPARIN DRIP RUNNING. HOB ELEVATED. SIDE RAILS UP AND LOCKED. BED KEPT AT LOWEST POSITION. CALL LIGHT KEPT WITHIN EASY REACH. WILL CONTINUE TO MONITOR.
[2019-08-09] MEDS: INSULIN REGULAR, HUMAN 100 UNIT/ML 3 ML VIAL SQ PRN ×3 (08:00→18:14)
--- NOTE | 2019-08-09 08:00 | NUR ---
CLOTH REELER NOTE WOUND CONSULT NOT DONE, PER KAMINI PATIENT ALREADY BEING SEEN BY PLASTICS.
[2019-08-09] MEDS ORDERED: IV NS 0.9% 1,000 ML IV PRN (08:20)
[2019-08-09] MEDS ORDERED: IV 1/2NS 1000 ML 1,000 ML IV PRN (10:27)
[2019-08-09] MEDS ORDERED: POTASSIUM CHLORIDE 10 MEQ TABLET.SA PO ONE (12:00)
[2019-08-09] MEDS: POTASSIUM PHOSPHATE MM 5 MMOL in IV D5W 100 ML IV SCH ×2 (12:37→14:51)
--- NOTE | 2019-08-09 13:08 | NUR ---
GI TECHNICIAN NOTE SPOKE WITH DR BROTHERS REGARDING STARTING DIET ON PATIENT. WITH ORDERS FOR SWALLOW EVAL. OK TO HOLD KDUR MEDICATION AT THIS TIME. CHANGE IVF TO D5 1/2NS AT 125ML/HR AND CONTINUE PREVIOUS XARELTO MEDICATION. NOTED AND CARRIED OUT.
[2019-08-09] MEDS: IV D5/0.45 NACL 1,000 ML IV PRN ×2 (13:24→22:48)
[2019-08-09] MEDS: HYDROCORTISONE SOD SUCCINATE 100 MG/2 ML VIAL IV SCH ×3 (14:50→23:02)
[2019-08-09] MEDS: HEPARIN SODIUM, PORCINE 5000 UNITS/1 ML VIAL SQ SCH ×2 (14:51→20:58)
--- NOTE | 2019-08-09 15:00 | NUR ---
PROFESSOR OF FLORICULTURE NOTE RELAYED TO DR JONES CRITICAL CORTISOL LEVEL OF 18.9. WITH NEW ORDERS SOLU CORTEF 100MG 3 DOSES.
--- NOTE | 2019-08-09 15:38 | NUR ---
ELEMENTARY MATH TUTOR NOTES 1430 SEEN BY SPEECH THERAPIST. FAILED SWALLOW EVAL. [address] BROTHERS REGARDING FAILED SWALLOW EVAL AND REGARDING CRITICAL BLOOD CULTURE RESULT OF GRAM POSITIVE COCCI CLUSTERS. NEW ORDER RECEIVED FOR NGT.
--- NOTE | 2019-08-09 16:00 | NUR ---
FOLDING MACHINE OPERATOR NOTE NGT INSERTED TO RIGHT NARE, PLACEMENT VERIFIED WITH TWO NURSES. NGT PATENT, INTACT, IN PLACE.
[2019-08-09] MEDS ORDERED: RIVAROXABAN 10 MG TABLET PO SCH (17:00)
--- NOTE | 2019-08-09 18:00 | NUR ---
VIDEO PRODUCTION SPECIALIST NOTE DR. BROTHERS AWARE OF BOTH BLOOD CULTURE RESULTS
--- NOTE | 2019-08-09 18:00 | NUR ---
RESPITE WORKER NOTE INFORMED DR. DENEEN MILLIGANT INSERTED. WITH ORDERS NPO EXCEPT MEDS.
--- NOTE | 2019-08-09 18:35 | NUR ---
BRICKLAYER SEWER NOTE PATIENT TO TRANSFERRED TO [facility] WITH BED IN STABLE CONDITION. REPORT GIVEN TO LARS ZHENG.
--- NOTE | 2019-08-09 18:40 | NUR ---
MS MANAGEMENT TRAINEE NOTE RECEIVED PATIENT FROM ICU. PATIENT IN NO ACUTE DISTRESS. NO SOB NOTED. PATIENT BREATHING IS EVEN AND UNLABORED. PATIENT BREATHING ON NC AT 2L. BP: 132/75, HR 84, T: 98.6 AND PATIENT SATURATING AT 100% SPO2. PATIENT IVS INTACT. SAFETY PRECAUTIONS IN PLACE. HOB IS ELEVATED. BED ALARM IS ON. PATIENT BED IS LOCKED AND IN LOWEST POSITION. CALL LIGHT WITHIN REACH. WILL ENDORSE CARE TO PM SHIFT FOR CONTINUITY OF CARE.
--- NOTE | 2019-08-09 19:40 | NUR ---
MS RN NOTES RECEIVED ON BED A/I,BREATHING NON LABORED,WITH IVF INFUSING AT 125ML/HR RATE.WITH NGT CLAMPED FOR MEDS.[employer]CI MATTRESS IN USED FOR WOUND MANAGEMENT.LOMBARDO CATH IN PLACE DRAINING YELLOWISH OUTPUT.HOB ELEVATED.NPO EXCEPT MEDS.NOTED SACRAL WOUND,DRESSING INTACT AND DRY.REDNESS ON PERINEAL AREA MANAGE WITH REMEDY.WILL CONTINUE TO MONITOR STATUS.
--- NOTE | 2019-08-09 19:45 | NUR ---
MS RN NOTES REPORTED BY RAYSA FROM LAB,PATIENT BLOOD CULTURE PRELIMINARY RESULT WAS GRAM POSITIVE COCCI IN CLUSTERS.PATIENT ALREADY ON ZOSYN IV Q 8HOURS.
--- NOTE | 2019-08-09 22:00 | NUR ---
MS RN NOTES ACCU-CHECK BLOOD SUGAR CHECK 273,COVERED WITH HUMULIN R 6 UNITS PER MODERATE SLIDING SCALE.
[2019-08-10] MEDS: PIPERACILLIN /TAZOBACTAM 2.25 G in IV D5W 50 ML IV SCH (04:02)
[2019-08-10] MEDS: BLOOD SUGAR DIAGNOSTIC 1 EACH STRIP VI SCH ×4 (05:56→22:31)
[2019-08-10] MEDS: INSULIN REGULAR, HUMAN 100 UNIT/ML 3 ML VIAL SQ PRN ×3 (05:59→17:54)
--- NOTE | 2019-08-10 06:15 | NUR ---
MS RN NOTES ACCU-CHECK BLOOD SUGAR CHECK 329,COVERED WITH HUMULIN R 12 UNITS PER SLIDING SCALE.
[2019-08-10 06:20] LABS: BASOPHILS % (AUTO) 0.1 % (0.0-2.0); HEMATOCRIT 37 % (33-45); HEMOGLOBIN 11.6 g/dL (11.5-14.8); LYMPHOCYTES # (AUTO) 1.1 /CMM (0.8-4.8); LYMPHOCYTES % (AUTO) 6.5 % (20.0-44.0); MEAN CORPUSCULAR HGB CONC 31 g/dl (31.0-36.0); MEAN CORPUSCULAR VOLUME 90 fL (82-100); MONOCYTES # (AUTO) 0.2 /CMM (0.1-1.30); MONOCYTES % (AUTO) 1.4 % (2.0-12.0); NEUTROPHILS # (AUTO) 15.2 /CMM (1.8-8.9); PLATELET COUNT (AUTO) 166 /CMM (150-450); RED BLOOD CELL COUNT(AUTO) 4.14 MIL/uL (4.0-5.2); WHITE BLOOD COUNT (AUTO) 16.6 K/uL (4.3-11.0)
[2019-08-10 06:30] LABS: ALBUMIN 1.6 g/dL (3.4-5.0); BILIRUBIN,TOTAL 0.3 mg/dL (0.2-1.0); CALCIUM, SERUM 8.7 mg/dL (8.5-10.1); CREATININE 1.2 mg/dL (0.6-1.3); MAGNESIUM 1.7 mg/dL (1.8-2.4); PHOSPHORUS 2.8 mg/dL (2.5-4.9); POTASSIUM 3.5 mmol/L (3.5-5.1); TOTAL PROTEIN, SERUM 5.5 g/dL (6.4-8.2)
--- NOTE | 2019-08-10 06:40 | NUR ---
MS RN NOTES REPORTED BY UI LEAD DEVELOPER,CRITICAL LAB NA-158,CHLORIDE-127, GLUCOSE-383.WILL ENDORSE TO DAY NURSE TO FOLLOW UP WITH MD THIS MORNING.IN NO ACUTE DISTRESS
--- NOTE | 2019-08-10 06:52 | NUR ---
MS RN NOTES FAIRLY RESTED,NGT IN PLACE.NPO EXCEPT MEDS.IVF IN PROGRESS.IV ABX TOLERATED WELL.REPOSITION PER PROTOCOL.WOUND CARE DONE.LOMBARDO CATH DRAINS WELL.IN NO ACUTE DISTRESS.WILL ENDORSE TO DAY NURSE FOR EULA.
[2019-08-10] MEDS: IV D5/0.45 NACL 1,000 ML IV PRN (07:04)
--- NOTE | 2019-08-10 07:56 | NUR ---
MS RN OPENING NOTES Received Patient resting and asleep in bed. A/O x 1. Patient in stable condition. Breathing even and unlabored on 2LPM via NC with no respiratory distress. Facial grimacing and crying upon repositioning. Will intervene as ordered and continue to monitor. 20g PIV on LFA clean, dry, intact and flushing well. 20g PIV on PABLO clean, dry, intact and flushing well with D51/2NS running at 125ml/hr. Safety precautions in place. Bed locked and set to lowest position with side rails x 3 up. All needs rendered at this time. Call light within reach. Will continue to monitor.
[2019-08-10] MEDS: Magnesium 1GM/D5W 100ML PREMIX 100 ML IV SCH ×2 (09:00→10:25)
[2019-08-10] MEDS ORDERED: POTASSIUM CHLORIDE 20 MEQ TAB.PRT.SR PO SCH (09:00)
[2019-08-10] MEDS: POTASSIUM CHLORIDE 20 MEQ POWDER PACKET PO SCH ×3 (09:01→11:44)
[2019-08-10] MEDS: HEPARIN SODIUM, PORCINE 5000 UNITS/1 ML VIAL SQ SCH (09:02)
[2019-08-10] MEDS ORDERED: LIDOCAINE 1%-EPI 1:100,000 20 ML VIAL TP STA (10:11)
[2019-08-10] MEDS ORDERED: SILVER NITRATE APPLICATOR 1 EA BOX TP STA (10:11)
[2019-08-10] MEDS: HYDROCORTISONE SOD SUCCINATE 100 MG/2 ML VIAL IV SCH ×3 (10:30→16:32)
[2019-08-10] MEDS: DAKINS QUARTER STRENGTH (0.125%) 480 ML BOTTLE TOP SCH (10:30)
[2019-08-10] MEDS ORDERED: DOSING PER PHARMACY-AMIKACI IV XX PRN (12:00)
[2019-08-10] MEDS: IV 1/2NS 1000 ML 1,000 ML IV PRN (12:36)
[2019-08-10] MEDS ORDERED: AMIKACIN IV ONE ×2 (13:00→14:00)
[2019-08-10] MEDS ORDERED: D5W IV ONE ×2 (13:00→14:00)
[2019-08-10 13:06] LABS: CHOLESTEROL 83 mg/dL (<200); HDL CHOLESTEROL 24 mg/dL (40-60); LDL 43 mg/dL (0-99); TRIGLYCERIDES 108 mg/dL (30-150)
[2019-08-10] MEDS ORDERED: FEE PK DOSING 1 MIN EA MC ONE (13:57)
[2019-08-10 16:10] VITALS: BP 101/56
[2019-08-10] MEDS ORDERED: RIVAROXABAN 10 MG TABLET GT SCH (17:00)
[2019-08-10] MEDS ORDERED: RIVAROXABAN 15 MG TABLET PO SCH (17:00)
--- NOTE | 2019-08-10 19:04 | NUR ---
MS RN NOTES Per MD, discontinue Heparin and resume Xarelto 15mg. Notified Pharmacy. Will continue to monitor.
--- NOTE | 2019-08-10 19:05 | NUR ---
MS RN CLOSING NOTES Patient resting and asleep in bed. A/O x 1. Patient in stable condition. Breathing even and unlabored on 2LPM via NC with no respiratory distress. No signs and symptoms of pain at this time. [place] Cath in place and patent with clear, yellow output noted. 20g PIV on ENRIQUE clean, dry, intact and flushing well with 1/2 NS running at 100ml/hr. 20g PIV on RFA clean, dry, intact and flushing well. Safety precautions in place. Bed locked and set to lowest position with side rails x 3 up. All needs rendered at this time. Call light within reach. Will endorse plan of care to oncoming shift.
--- NOTE | 2019-08-10 19:20 | NUR ---
MAY CALL FOR MEDICAL INFORMATION - TOMMY (CAREGIVER FROM [facility]) - [phone]
--- NOTE | 2019-08-10 19:45 | NUR ---
MS RN NOTES RECEIVED ON BED SLEEPING,AROUSABLE TO VERBAL STIMULI,OPEN EYES,SPEECH GURBLED.IVF 1/2 NS AT 100ML/HR RATE IN PROGRESS.S/P WOUND DEBRIDEMENT ON SACRAL AREA.DRESSING INTACT AND DRY.LOMBARDO CATH PLACE DRAINING YELLOWISH OUTPUT.[employer]CI MATTRESS IN USED FOR WOUND MANAGEMENT.WITH NGT TO LEFT NARES CLAMPED.REPOSITION PER PROTOCOL.WILL CONTINUE TO MONITOR STATUS.
[2019-08-10 20:00] VITALS: BP 131/72
[2019-08-10] MEDS: *INSULIN REGULAR(HUMULIN R)HUM 100 UNIT/ML VIAL SQ PRN (22:36)
[2019-08-11] MEDS: IV 1/2NS 1000 ML 1,000 ML IV PRN ×2 (04:48→17:54)
--- NOTE | 2019-08-11 06:00 | NUR ---
MS RN NOTES ACCU-CHECK BLOOD SUGAR CHECK 134,COVERED WITH HUMULIN R 2 UNITS PER SLIDING SCALE.
[2019-08-11] MEDS: BLOOD SUGAR DIAGNOSTIC 1 EACH STRIP VI SCH ×4 (06:05→22:49)
[2019-08-11] MEDS: INSULIN REGULAR, HUMAN 100 UNIT/ML 3 ML VIAL SQ PRN ×3 (06:06→17:05)
--- NOTE | 2019-08-11 06:33 | NUR ---
MS RN NOTES SLEPT WELL,IVF IN PROGRESS,NO SOB NOTED.MORNING CARE RENDERED,TOLERATED WELL.DRESSING DONE ON SACRAL WOUND AREA.REPOSITION PER PROTOCOL.IN NO ACUTE DISTRESS.WILL ENDORSE TO DAY NURSE FOR EULA.
--- NOTE | 2019-08-11 07:26 | NUR ---
RN OPENING NOTE PT WAS RECEIVED IN BED AT LOWEST AND LOCKED POSITION WITH SIDE RAILS X2, A/O X1 BREATHING EVEN AND UNLABORED WITH NO S/S OF ANY DISTRESS OR PAIN AT THIS TIME, IV IS PATENT AND INTACT, NGT AND LOMBARDO IN PLACE, SAFETY PRECAUTIONS IN PLACE, CALL LIGHT WITHIN REACH, WILL MONITOR PT ACCORDINGLY
[2019-08-11 07:30] VITALS: BP 131/71
[2019-08-11 08:13] LABS: BASOPHILS % (AUTO) 0.2 % (0.0-2.0); HEMATOCRIT 37 % (33-45); HEMOGLOBIN 11.6 g/dL (11.5-14.8); LYMPHOCYTES # (AUTO) 1.5 /CMM (0.8-4.8); LYMPHOCYTES % (AUTO) 9.8 % (20.0-44.0); MEAN CORPUSCULAR HGB CONC 32 g/dl (31.0-36.0); MEAN CORPUSCULAR VOLUME 88 fL (82-100); MONOCYTES # (AUTO) 0.5 /CMM (0.1-1.30); MONOCYTES % (AUTO) 2.9 % (2.0-12.0); NEUTROPHILS # (AUTO) 13.8 /CMM (1.8-8.9); NEUTROPHILS % (AUTO) 87.1 % (43.0-81.0); PLATELET COUNT (AUTO) 188 /CMM (150-450); RED BLOOD CELL COUNT(AUTO) 4.16 MIL/uL (4.0-5.2); WHITE BLOOD COUNT (AUTO) 15.8 K/uL (4.3-11.0)
[2019-08-11 08:21] LABS: ALBUMIN 1.6 g/dL (3.4-5.0); BILIRUBIN,TOTAL 0.3 mg/dL (0.2-1.0); CALCIUM, SERUM 9.2 mg/dL (8.5-10.1); CREATININE 0.9 mg/dL (0.6-1.3); MAGNESIUM 2.1 mg/dL (1.8-2.4); PHOSPHORUS 2.4 mg/dL (2.5-4.9); POTASSIUM 3.8 mmol/L (3.5-5.1); TOTAL PROTEIN, SERUM 5.6 g/dL (6.4-8.2)
[2019-08-11] MEDS: DAKINS QUARTER STRENGTH (0.125%) 480 ML BOTTLE TOP SCH (08:59)
[2019-08-11] MEDS: HYDROCORTISONE SOD SUCCINATE 100 MG/2 ML VIAL IV SCH ×3 (08:59→16:10)
[2019-08-11] MEDS: ASPIRIN EC 81 MG TABLET.DR PO SCH (08:59)
[2019-08-11] MEDS ORDERED: HEPARIN SODIUM, PORCINE 5000 UNITS/1 ML VIAL SQ SCH (09:00)
--- NOTE | 2019-08-11 09:45 | NUR ---
RN NOTE PER SPEECH THERAPIST, IF FAMILY NOT AGREEABLE TO NGT FEEDING, WILL PLACE ORDER FOR ENSURE. WILL AWAIT TO HEAR FROM FAMILY
--- NOTE | 2019-08-11 10:06 | NUR ---
WOUND CARE CONSULT WOUND CARE RECEIVED CONSULT FOR NEW ADMISSION/WOUND. WOUND CARE WILL DEFER CONSULT AND TREATMENT PLANS TO PLASTIC SURGICAL TEAM WHO ARE CURRENTLY SEEING THIS PATIENT. PATIENT WITH RENY AT 10, ALL PRESSURE ULCER PREVENTION MEASURES ARE NOTED TO BE IN PLACE AT THIS TIME. WILL SEE PRN.
--- NOTE | 2019-08-11 12:16 | NUR ---
RN NOTE HOSPITALIST DR. BROTHERS MADE AWARE THAT SON SRINIVASA IS OKAY WITH PT RECEIVING NGT FEEDING. HOSPITALIST INFORMED THAT PT ATE 40% OF HER BREAKFAST THIS AM. ORDER RECEIVED TO HOLD OFF ON FEEDINGS AND USE THE NGT FOR MEDS IF NEEDED.
[2019-08-11] MEDS ORDERED: K PHOS NEUTRAL 250 MG TABLET PO ONE (12:30)
[2019-08-11] MEDS ORDERED: AMIKACIN 250 MG in IV D5W 100 ML IV SCH (14:00)
[2019-08-11] MEDS: NS 0.9% IV SCH (14:08)
[2019-08-11] MEDS: AMIKACIN IV SCH (14:08)
[2019-08-11 16:00] VITALS: BP 122/72
[2019-08-11] MEDS: ENSURE ENLIVE 237 ML LIQUID (VANILLA) PO SCH (16:11)
[2019-08-11] MEDS: RIVAROXABAN 15 MG TABLET PO SCH (16:13)
--- NOTE | 2019-08-11 18:22 | NUR ---
RN CLOSING NOTE PT IN BED AT LOWEST AND LOCKED POSITION WITH SIDE RAILS X2, A/O X1 BREATHING EVEN AND UNLABORED WITH NO DISTRESS OR ANY PAIN AT THIS TIME, IV IS PATENT AND INTACT WITH IVF, NGT AND LOMBARDO IN PLACE, SAFETY PRECAUTIONS IN PLACE, CALL LIGHT WITHIN REACH, ALL NEEDS ATTENDED TO, WILL ENDORSE TO NIGHT RN FOR EULA.
--- NOTE | 2019-08-11 19:29 | NUR ---
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
--- NOTE | 2019-08-11 19:55 | NUR ---
RN NOTES RECEIVED PATIENT IN BED AT LOWEST AND LOCKED POSITION WITH SIDE RAILS X2, A/O X1 BREATHING EVEN AND UNLABORED WITH NO APPARENT DISTRESS OR ANY PAIN AT THIS TIME, IV IS PATENT AND INTACT WITH IVF, NGT AND LOMBARDO IN PLACE, SAFETY PRECAUTIONS IN PLACE, ASPIRATION PRECAUTION EMPHASIZE, CALL LIGHT WITHIN EASY REACH, ALL NEEDS ANTICIPATED, WILL CONTINUE TO MONITOR ACCORDINGLY.
[2019-08-11 20:00] VITALS: BP 123/88
--- NOTE | 2019-08-11 20:25 | NUR ---
RN NOTES PATIENT'S SON SRINIVASA CAME, ASKING FOR UPDATE REGARDING PATIENT'S PLAN OF CARE, INFORMED HIM REGARDING REPORT RECEIVED FROM PREVIOUS SHIFT, PER AM NURSE SIDDHARTHA, HOSPITALIST DR. BROTHERS MADE AWARE THAT SON SRINIVASA IS OKAY WITH PT RECEIVING NGT FEEDING. HOSPITALIST INFORMED THAT PT ATE 40% OF HER BREAKFAST THIS AM. ORDER RECEIVED TO HOLD OFF ON FEEDINGS AND USE THE NGT FOR MEDS IF NEEDED. SRINIVASA VERBALIZES UNDERSTANDING. PATIENT IS CALM, RESTING COMFORTABLY AT THIS TIME WITH NO ACUTE DISTRESS NOTED.
[2019-08-11] MEDS: *INSULIN REGULAR(HUMULIN R)HUM 100 UNIT/ML VIAL SQ PRN (22:59)
[2019-08-12] MEDS: HYDROCODONE/APAP 5/325MG 1 EACH TABLET PO PRN ×2 (02:55→16:02)
[2019-08-12 06:45] LABS: CALCIUM, SERUM 9.3 mg/dL (8.5-10.1); PHOSPHORUS 3.3 mg/dL (2.5-4.9); POTASSIUM 4.1 mmol/L (3.5-5.1)
[2019-08-12] MEDS: BLOOD SUGAR DIAGNOSTIC 1 EACH STRIP VI SCH ×4 (06:45→22:07)
[2019-08-12] MEDS: *INSULIN REGULAR(HUMULIN R)HUM 100 UNIT/ML VIAL SQ PRN ×2 (06:46→22:14)
[2019-08-12] MEDS: IV 1/2NS 1000 ML 1,000 ML IV PRN ×2 (06:47→19:47)
--- NOTE | 2019-08-12 07:30 | NUR ---
RN NOTES ALL NEEDS ATTENDED AND MET, ABLE TO REST AND SLEPT AT INTERVALS, SAFETY MEASURES IN PLACE, ASPIRATION PRECAUTION EMPHASIZED, KEPT CLEAN DRY AND COMFORTABLE, ENDORSED TO AM NURSE FOR CONTINUITY OF CARE.
[2019-08-12 08:00] VITALS: BP 156/105
[2019-08-12] MEDS: HYDROCORTISONE SOD SUCCINATE 100 MG/2 ML VIAL IV SCH ×3 (08:19→16:03)
[2019-08-12] MEDS: ASPIRIN EC 81 MG TABLET.DR PO SCH (08:19)
[2019-08-12] MEDS: DAKINS QUARTER STRENGTH (0.125%) 480 ML BOTTLE TOP SCH (08:20)
[2019-08-12] MEDS: ENSURE ENLIVE 237 ML LIQUID (VANILLA) PO SCH ×3 (08:20→16:04)
[2019-08-12] MEDS: INSULIN REGULAR, HUMAN 100 UNIT/ML 3 ML VIAL SQ PRN ×2 (11:44→16:57)
[2019-08-12] MEDS: AMIKACIN IV SCH (13:54)
[2019-08-12] MEDS: NS 0.9% IV SCH (13:54)
[2019-08-12 16:02] VITALS: BP 117/77
[2019-08-12] MEDS: RIVAROXABAN 15 MG TABLET PO SCH (16:04)
--- NOTE | 2019-08-12 18:17 | NUR ---
RN NOTE CALLED RECEIVED REGARDING PT AMIKACIN VALUES: PEAK WAS NOTED TO BE 14.8 AND THE TROUGH WAS 4.8 AT THIS TIME
--- NOTE | 2019-08-12 18:36 | NUR ---
RN CLOSING NOTE PT IN BED AT LOWEST AND LOCKED POSITION WITH SIDE RAILS X2, A/O X1 BREATHING EVEN AND UNLABORED WITH NO S/S OF ANY DISTRESS OR PAIN AT THIS TIME, IV IS PATENT AND INTACT WITH IVF RUNNING, NGT AND LOMBARDO IN PLACE, LOMBARDO HAD 350 ML OUT, SAFETY PRECAUTIONS IN PLACE, CALL LIGHT WITHIN REACH, ALL NEEDS ATTENDED TO, WILL ENDORSE TO NIGHT RN FOR EULA.
--- NOTE | 2019-08-12 19:30 | NUR ---
ms julio notes received report form am nurse and seen pt in bed with NGT that is clamped. reposition her on hob elevated , she also with 02 at 3 liters via NC. not in any acute distress noted. skin warm and dry to touch. IVF 1/2 NS started again as ordered. escobedo to gravity with clear yellow output noted. kept her warm and comfortable at all times. bed on low and side rails up for pt safety. will continue monitoring.
[2019-08-12 20:00] VITALS: BP_SYST 127; BP_SYST 130; BP_DIAS 65; BP_DIAS 89
--- NOTE | 2019-08-12 21:50 | NUR ---
MS PAUL NOTES CALLED DR GARNETT TO LET HIM KNOW THAT PT HEART RATE 150-162, NO SIGNS OF ANY DISTRESS NOTED. HE ORDERED METOPROLOL 25MG PO ,BID START TODAY. WILL CONTINUE MONITORING THE PT.
[2019-08-12] MEDS: METOPROLOL TARTRATE 25 MG TABLET PO SCH (22:10)
--- NOTE | 2019-08-12 22:30 | NUR ---
ms julio notes pt resting at this time. metoprolol given as ordered. MD aware that pt on tachycardiac. no signs of any distress at this time. will continue monitoring.
[2019-08-13] MEDS: HYDROCODONE/APAP 5/325MG 1 EACH TABLET PO PRN ×2 (00:48→16:55)
--- NOTE | 2019-08-13 01:12 | NUR ---
ms julio notes checked the patient and heart rate runs to 150-160's and lowest one is 130, text Dr Mccoy and he got order to give cardizem 10 mg IVP X one. and if doesn't work give Digoxin 500 mg IV then digoxin 250mg ivp q 6hrs x2 . And if her BP drops , she will needs to have amio drip 500mcg... then 250mcg . and move pt to [facility].
[2019-08-13] MEDS ORDERED: DILTIAZEM HCL 50 MG IV IV ONE (01:30)
[2019-08-13] MEDS ORDERED: DILTIAZEM HCL 25 MG IV ONE (01:44)
--- NOTE | 2019-08-13 02:05 | NUR ---
tele oracle analyst notes transferred pt to skip as ordered mo ACLS protocol . gave report to SKIP nurse for continuation of care.
[2019-08-13] MEDS ORDERED: AMIODARONE 150 MG/3 ML VIAL IV ONE ×2 (02:21→02:22)
[2019-08-13] MEDS ORDERED: AMIODARONE 900 MG in IV D5W 482 ML IV PRN (02:30)
[2019-08-13] MEDS ORDERED: AMIODARONE 150 MG in IV D5W 100 ML IV ONE (02:30)
[2019-08-13] MEDS: IV 1/2NS 1000 ML 1,000 ML IV PRN ×2 (02:36→12:25)
--- NOTE | 2019-08-13 02:48 | NUR ---
TD RN: [facility] FOR [facility]CONTROLLED A. FIB. PT. ON 2L 02 VIA NC WT NO ACUTE DISTRESS. OPENS EYES TO TACTILE STIMULI. UNABLE TO FOLLOW COMMANDS. F/C PATENT AND INTACT DRAINING YELLOW URINE TO GRAVITY. STARTED AMIO BOLUS WT GOOD EFFECT. HR IMPROVED IN THE 80s FROM 160s. WILL CONTINUE TO MONITOR.
--- NOTE | 2019-08-13 03:05 | NUR ---
TD RN: DR. GARNETT MADE AWARE THAT PT HR WENT DOWN TO 50s THEN 40s FOR FEW SECONDS THEN BACK TO 70s AFTER BOLUS IS DONE. SAID TO CONTINUE TO ADMINISTER AMIO. DRIP.
[2019-08-13 04:00] VITALS: BP 105/73
--- NOTE | 2019-08-13 06:30 | NUR ---
TD RN: CONTINUE ON AMIODARONE DRIP AT 1MG/MIN, STILL A. FIB CONTROLLED. REMAINED LETHARGIC, RESPONSIVE TO TACTILE STIMULI. ALL NEEDS MET. WILL ENDORSE TO DAY SHIFT FOR CONTINUITY OF CARE.
--- NOTE | 2019-08-13 07:00 | NUR ---
[facility] RN INITIAL NOTES PT RECEIVED ON AMIO DRIP AT 1MG/MIN. PT REMAINS AFIB (CONTROLLED) ON MONITOR WITH A CURRENT HR OF 72. SHE REMAINS ON 2L VIA NC AND SATING WELL. ABEBE SOB OR ACUTE SIGNS OF DISTRESS NOTED. BREATHING IS EVEN AND UNLABORED. F/C NOTED TO BE C/D/I AND DRAINING TO GRAVITY. PERIPHERAL IVS NOTED TO BE PATENT AND INTACT. NO REDNESS OR SIGNS OF INFILTRATION NOTED. PT TOLERATING ORDERED IVF WELL. RIGHT NARE NG NOTED TO BE PATENT AND INTACT. PLACEMENT VERIFIED VIA AUSCULTATION. BED IN LOW LOCKED POSITION, SIDE RAILS UP X3, CALL LIGHT WITHIN REACH, ISOLATION PRECAUTIONS MAINTAINED. WILL CONTINUE TO MONITOR
[2019-08-13 07:13] LABS: CALCIUM, SERUM 8.7 mg/dL (8.5-10.1); CREATININE 0.8 mg/dL (0.6-1.3); POTASSIUM 3.9 mmol/L (3.5-5.1)
[2019-08-13 08:00] VITALS: BP 121/73
[2019-08-13] MEDS: ENSURE ENLIVE 237 ML LIQUID (VANILLA) PO SCH ×3 (08:00→16:46)
[2019-08-13] MEDS: INSULIN REGULAR, HUMAN 100 UNIT/ML 3 ML VIAL SQ PRN ×3 (08:36→16:53)
[2019-08-13] MEDS: BLOOD SUGAR DIAGNOSTIC 1 EACH STRIP VI SCH ×4 (08:37→22:13)
[2019-08-13] MEDS: HYDROCORTISONE SOD SUCCINATE 100 MG/2 ML VIAL IV SCH ×3 (08:38→16:46)
[2019-08-13] MEDS: ASPIRIN EC 81 MG TABLET.DR PO SCH (08:38)
[2019-08-13] MEDS: METOPROLOL TARTRATE 25 MG TABLET PO SCH ×2 (08:42→16:45)
[2019-08-13] MEDS: DAKINS QUARTER STRENGTH (0.125%) 480 ML BOTTLE TOP SCH (08:43)
[2019-08-13 09:01] LABS: ALBUMIN 1.4 g/dL (3.4-5.0)
[2019-08-13 09:15] LABS: PREALBUMIN 17.4 MG/DL (18.0-35.7)
[2019-08-13 10:10] LABS: THYROID STIMULATING HORMONE 0.623 uIU/mL (0.358-3.74)
[2019-08-13 10:41] LABS: MAGNESIUM 1.8 mg/dL (1.8-2.4)
[2019-08-13 12:00] VITALS: BP 140/83
[2019-08-13] MEDS: ACETAMINOPHEN 325 MG TABLET PO PRN (12:24)
[2019-08-13] MEDS: PIPERACILLIN /TAZOBACTAM 2.25 G in IV D5W 50 ML IV SCH ×2 (12:36→21:04)
[2019-08-13] MEDS ORDERED: PIPERACILLIN /TAZOBACTAM 3.375 G in IV D5W 100 ML IV SCH (13:00)
[2019-08-13] MEDS: AMIKACIN 300 MG in IV D5W 100 ML IV SCH (14:12)
[2019-08-13 16:00] VITALS: BP 126/76
[2019-08-13] MEDS: RIVAROXABAN 15 MG TABLET PO SCH (16:46)
[2019-08-13] MEDS: GLUCERNA 1.2 1,000 ML BOTTLE NG PRN (17:48)
--- NOTE | 2019-08-13 18:35 | NUR ---
[facility] RN CLOSING NOTES PT REMAINS STABLE. ALL NEEDS ANTICIPATED FOR AND MET. ALL DUE MEDS GIVEN. PRN CARE RENDERED. WOUND CARE RENDERED ORDERED. PT REPOSITIONED AND TURNED PER PROTOCOL. TUBE FEEDINGS STARTED. PT TOLERATING WELL. NO RESIDUALS AT THIS TIME. SHE REMAINS AFIB (CONTROLLED) ON MONITOR AND CONTINUES TOLERATING AMIO INFUSION WELL. SAFETY AND ISOLATION PRECAUTIONS REMAIN IN PLACE. WILL ENDORSE TO NIGHTSHIFT RN FOR EULA
--- NOTE | 2019-08-13 19:30 | NUR ---
RN NOTE: RECEIVED PT ON BED ASLEEP, NON VERBAL BUT AROUSES TO TACTILE STIMULI. NO APPARENT DISTRESS NOTED. NO FACIAL GRIMACING OR ANY SIGNS OF PAIN NOTED. ON 2LPM NASAL CANNULA, NO SOB NOTED. ON TELE MONITOR AFIB CONTROLLED HR 71BPM. RIGHT NARE NGT INTACT AND IN PLACED WITH GLUCERNA RUNNING AT 30ML/HR. IV ON LEFT UPPER ARM #20 AND LEFT FOREARM #20 INTACT AND PATENT, ON AMIO DRIP RUNNING AT 0.5MG/MIN. LOMBARDO CATH INTACT AND DRAINING WELL. KEPT CLEAN, DRY AND COMFORTABLE. SAFETY AND FALL PRECAUTIONS OBSERVED AND MAINTAINED. WILL CONTINUE TO MONITOR PT
[2019-08-13 20:00] VITALS: BP 142/92
--- NOTE | 2019-08-13 20:02 | NUR ---
PEWTER CASTER NOTE: PATIENT'S HR WENT DOWN TO 37BPM. DR. GARNETT MADE AWARE WITH ORDER TO DC AMIO DRIP. ORDER CARRIED OUT AND DONE. WILL CONTINUE TO MONITOR PT.
[2019-08-13] MEDS: *INSULIN REGULAR(HUMULIN R)HUM 100 UNIT/ML VIAL SQ PRN (22:14)
[2019-08-14] VITALS: BP 133/79
[2019-08-14] MEDS: IV 1/2NS 1000 ML 1,000 ML IV PRN ×2 (01:15→17:17)
[2019-08-14] MEDS: HYDROCODONE/APAP 5/325MG 1 EACH TABLET PO PRN ×3 (03:41→15:56)
[2019-08-14 04:00] VITALS: BP 109/72
[2019-08-14] MEDS: PIPERACILLIN /TAZOBACTAM 2.25 G in IV D5W 50 ML IV SCH ×3 (05:15→20:32)
[2019-08-14 06:26] LABS: BASOPHILS # (AUTO) 0.1 /CMM (0.0-0.2); BASOPHILS % (AUTO) 0.5 % (0.0-2.0); EOSINOPHILS % (AUTO) 0.8 % (0.0-6.0); HEMATOCRIT 54 % (33-45); HEMOGLOBIN 16.3 g/dL (11.5-14.8); LYMPHOCYTES # (AUTO) 0.7 /CMM (0.8-4.8); LYMPHOCYTES % (AUTO) 5.5 % (20.0-44.0); MEAN CORPUSCULAR HGB CONC 30 g/dl (31.0-36.0); MEAN CORPUSCULAR VOLUME 89 fL (82-100); MONOCYTES # (AUTO) 0.3 /CMM (0.1-1.30); MONOCYTES % (AUTO) 2.6 % (2.0-12.0); NEUTROPHILS # (AUTO) 11.5 /CMM (1.8-8.9); NEUTROPHILS % (AUTO) 90.6 % (43.0-81.0); PLATELET COUNT (AUTO) 140 /CMM (150-450); RED BLOOD CELL COUNT(AUTO) 6.13 MIL/uL (4.0-5.2); WHITE BLOOD COUNT (AUTO) 12.6 K/uL (4.3-11.0)
[2019-08-14 06:52] LABS: CALCIUM, SERUM 9.2 mg/dL (8.5-10.1); CREATININE 0.9 mg/dL (0.6-1.3); MAGNESIUM 1.8 mg/dL (1.8-2.4); POTASSIUM 5.2 mmol/L (3.5-5.1)
--- NOTE | 2019-08-14 07:00 | NUR ---
CHIP APPLYING MACHINE TENDER NOTE: NO CHANGES NOTED THROUGHOUT THE SHIFT. NO APPARENT DISTRESS NOTED. ON 2LPM NASAL CANNULA, NO SOB NOTED. AFIB CONTROLLED ON TELE MONITOR HR 90BPM. RIGHT NARE NG INTACT AND IN PLACED, INCREASED GTF TO GOAL 45ML/HR, ABLE TO TOLERATE WELL. NO SIGNS/SYMPTOMS OF ASPIRATION NOTED. LOMBARDO CATH INTACT DRAINED 300ML OF URINE OUTPUT. KEPT CLEAN, DRY AND COMFORTABLE. SAFETY AND FALL PRECAUTIONS OBSERVED AND MAINTAINED. ENDORSED TO DAY SHIFT RN FOR CONTINUITY OF CARE.
--- NOTE | 2019-08-14 07:10 | NUR ---
RN NOTE: RECEIVED PT ON BED, NON VERBAL BUT AROUSES TO TACTILE STIMULI. ON 2L O2 NASAL CANNULA, NO SOB NOTED. ON TELE MONITOR A.FIB CONTROLLED HR IN 90'S . RIGHT NARE NGT INTACT AND IN PLACED WITH GLUCERNA RUNNING AT 45 CC/ HR , NO RESIDUAL NOTED, LOMBARDO DRINING TO GRAVITY, L UPPER ARM IV G20 AND LFA IV G 20 , SITES CLEAN, DRY AND INTACT, SR UPx3, CALL LIGHT WITHIN EASY REACH, BED LOCKED AND IN LOWEST POSITION, SAFETY AND FALL PRECAUTIONS OBSERVED AND MAINTAINED. WILL CONTINUE TO MONITOR PT
[2019-08-14 08:00] VITALS: BP 156/82
[2019-08-14] MEDS: ENSURE ENLIVE 237 ML LIQUID (VANILLA) PO SCH ×2 (08:00→11:44)
[2019-08-14] MEDS: INSULIN REGULAR, HUMAN 100 UNIT/ML 3 ML VIAL SQ PRN ×3 (08:35→17:40)
[2019-08-14] MEDS: ASPIRIN EC 81 MG TABLET.DR PO SCH (08:36)
[2019-08-14] MEDS: BLOOD SUGAR DIAGNOSTIC 1 EACH STRIP VI SCH ×4 (08:36→22:09)
[2019-08-14] MEDS: HYDROCORTISONE SOD SUCCINATE 100 MG/2 ML VIAL IV SCH ×3 (08:37→17:04)
[2019-08-14] MEDS: METOPROLOL TARTRATE 25 MG TABLET PO SCH ×2 (08:37→17:04)
[2019-08-14] MEDS: DAKINS QUARTER STRENGTH (0.125%) 480 ML BOTTLE TOP SCH (08:38)
[2019-08-14] MEDS ORDERED: LIDOCAINE 1%-EPI 1:100,000 20 ML VIAL TP STA (10:10)
[2019-08-14 12:00] VITALS: BP 118/83
[2019-08-14 16:00] VITALS: BP 117/69
--- NOTE | 2019-08-14 16:25 | NUR ---
RN NOTES SACRUM DEBRIDEMENT DONE BY PA , POST DEBRIDEMENT SACRUM PICTURE TAKEN AND PLACED IN THE CHART .
[2019-08-14] MEDS: LACTOBACILLUS RHAMNOSUS GG 1 EACH CAP.SPRINK PO SCH (17:05)
[2019-08-14] MEDS: RIVAROXABAN 15 MG TABLET PO SCH (17:06)
--- NOTE | 2019-08-14 18:24 | NUR ---
RN NOTES PT STABLE, TOLERAING TF WELL, 1/2NS AT 45CC/HR RUNNING VIA L UPPER ARM IV SITE, NO COMPLICATION NOTED, SR UP x3, CALL LIGHT WITHIN EASY REACH, BED LOCKED AND IN LOWEST POSITION, WILL ENDORSE TO MORTGAGE ASSISTANT NURSE FOR CONTINUITY OF CARE.
[2019-08-14 20:00] VITALS: BP 156/93
--- NOTE | 2019-08-14 20:00 | NUR ---
EXHAUSTER NOTE PT IN BED WITH EYES CLOSED. NON VERBAL. ON O2 2L VIA N/C O2 SAT 100%, NO DISTRESS OR DISCOMFORT NOTED. NO S/S OF PAIN NOTED. SON AT BED SIDE. RT NARE NGT INTACT AND PATENT INFUSING GLUCERNA AT 45 ML/HR, 0 ML RESIDUAL NOTED. IVF 1/2 NS AT 40 ML/HR INFUSING WELL NO S/S OF INFILTRATION NOTED. IN ISOLATION FOR MRSA WOUND HX. NO S/S OF HYPO OR HYPERGLYCEMIA NOTED. ALL NEEDS ATTENDED. CONTINUE TO MONITOR HER.
[2019-08-14] MEDS: GLUCERNA 1.2 1,000 ML BOTTLE NG PRN (20:31)
--- NOTE | 2019-08-14 21:00 | NUR ---
RECOVERY ROOM RN NOTE SON GAVE CONSENT FOR PEG PLACEMENT. ACCORDING TO HIM, HE IS THE DECISION MAKER NOT HIS . CHARGE NURSE DEBBIE MADE AWARE OF IT.
--- NOTE | 2019-08-14 21:23 | NUR ---
DECAL TRANSFERRER NOTE REPORT GIVEN TO DENZEL CHINCHILLA FOR CONTINUE TO CARE.
[2019-08-14] MEDS: *INSULIN REGULAR(HUMULIN R)HUM 100 UNIT/ML VIAL SQ PRN (21:58)
[2019-08-15] VITALS: BP 137/80
[2019-08-15] MEDS: HYDROCODONE/APAP 5/325MG 1 EACH TABLET PO PRN ×3 (01:57→18:08)
[2019-08-15 04:00] VITALS: BP 131/77
[2019-08-15] MEDS: AMIKACIN 300 MG in IV D5W 100 ML IV SCH (04:15)
[2019-08-15] MEDS: PIPERACILLIN /TAZOBACTAM 2.25 G in IV D5W 50 ML IV SCH ×3 (05:53→20:11)
[2019-08-15 05:59] LABS: BASOPHILS % (AUTO) 0.1 % (0.0-2.0); HEMATOCRIT 36 % (33-45); HEMOGLOBIN 11.4 g/dL (11.5-14.8); LYMPHOCYTES # (AUTO) 0.8 /CMM (0.8-4.8); LYMPHOCYTES % (AUTO) 5.7 % (20.0-44.0); MEAN CORPUSCULAR HGB CONC 32 g/dl (31.0-36.0); MEAN CORPUSCULAR VOLUME 88 fL (82-100); MONOCYTES # (AUTO) 0.6 /CMM (0.1-1.30); MONOCYTES % (AUTO) 4.8 % (2.0-12.0); NEUTROPHILS # (AUTO) 12.2 /CMM (1.8-8.9); NEUTROPHILS % (AUTO) 89.4 % (43.0-81.0); PLATELET COUNT (AUTO) 263 /CMM (150-450); RED BLOOD CELL COUNT(AUTO) 4.07 MIL/uL (4.0-5.2); WHITE BLOOD COUNT (AUTO) 13.6 K/uL (4.3-11.0)
[2019-08-15 06:50] LABS: BILIRUBIN,TOTAL 0.2 mg/dL (0.2-1.0); CALCIUM, SERUM 9.1 mg/dL (8.5-10.1); CREATININE 0.9 mg/dL (0.6-1.3); MAGNESIUM 1.8 mg/dL (1.8-2.4); PHOSPHORUS 2.3 mg/dL (2.5-4.9); POTASSIUM 4.7 mmol/L (3.5-5.1); TOTAL PROTEIN, SERUM 4.5 g/dL (6.4-8.2)
[2019-08-15 06:56] LABS: ALBUMIN 1.3 g/dL (3.4-5.0)
[2019-08-15 08:00] VITALS: BP 112/78
[2019-08-15] MEDS: BLOOD SUGAR DIAGNOSTIC 1 EACH STRIP VI SCH ×4 (08:21→21:36)
[2019-08-15] MEDS: HYDROCORTISONE SOD SUCCINATE 100 MG/2 ML VIAL IV SCH ×3 (08:39→18:05)
[2019-08-15] MEDS: METOPROLOL TARTRATE 25 MG TABLET PO SCH ×2 (08:39→18:08)
[2019-08-15] MEDS: ASPIRIN EC 81 MG TABLET.DR PO SCH (08:39)
[2019-08-15] MEDS: LACTOBACILLUS RHAMNOSUS GG 1 EACH CAP.SPRINK PO SCH ×2 (08:39→18:05)
[2019-08-15] MEDS: DAKINS QUARTER STRENGTH (0.125%) 480 ML BOTTLE TOP SCH (08:40)
[2019-08-15] MEDS: INSULIN REGULAR, HUMAN 100 UNIT/ML 3 ML VIAL SQ PRN ×3 (08:46→18:10)
[2019-08-15] MEDS: ACETAMINOPHEN 325 MG TABLET PO PRN (09:48)
[2019-08-15 12:00] VITALS: BP 153/98
[2019-08-15] MEDS ORDERED: NEUTRA PHOS 1 POWD.PACKET GT ONE (12:00)
[2019-08-15] MEDS ORDERED: METOPROLOL TARTRATE INJ 5 MG/5 ML AMPUL IVP ONE (12:30)
--- NOTE | 2019-08-15 12:52 | NUR ---
RN NOTES RECEIVED REPORT FROM LARS RODRIGUEZ. PATIENT NOT ON RESPIRATORY DISTRESS, PATIENT NONVERBAL, WITH CRY, HR AT 150BPM AT THIS TIME. WITH ORDERS FOR 5 MG OF METOPROLOL TO BE GIVEN IV DUE TO ELEVATED HEART RATE. Addendum: 08/15/19 at 1558 by PAULINA GAMEZ RN BLOOD PRESSURE AT 143/100MMHG
--- NOTE | 2019-08-15 15:30 | NUR ---
RN NOTES HANDS OFF, REPORT GIVEN TO LARS CONNOR
--- NOTE | 2019-08-15 15:30 | NUR ---
RN NOTE: BEDSIDE REPORT WAS RECEIVED FROM LARS GALLARDO FOR CONTINUITY OF CARE. PATIENT WAS ASLEEP UPON TRANSITION OF CARE. ON PRODUCTION CONTROL COORDINATING CLERK UNCONTROLLED A. FIB HR 102. PER NURSE REPORT, PATIENT RECEIVED LOPRESSOR THIS MORNING. WILL CONTINUE THE PATIENT'S CONDITION.
[2019-08-15 16:00] VITALS: BP 132/82
--- NOTE | 2019-08-15 18:06 | NUR ---
CLARIFIED WITH SON CONSENT FOR PEG /EGD ,WILL COME TONIGHT TO SIGN CONSENT FOR PROCEDURE /ANAESTHESIA.
[2019-08-15 20:00] VITALS: BP 122/78
--- NOTE | 2019-08-15 20:00 | NUR ---
RN JANENE - NOTES - PT IN BED WITH EYES CLOSED. NON VERBAL. ON O2 2L VIA N/C O2 SAT 100%, NO DISTRESS OR DISCOMFORT NOTED. NO S/S OF PAIN NOTED. SON AT BED SIDE. RT NARE NGT INTACT AND PATENT INFUSING GLUCERNA AT 45 ML/HR, 0 ML RESIDUAL NOTED. IVF 1/2 NS AT 40 ML/HR INFUSING WELL NO S/S OF INFILTRATION NOTED. IN ISOLATION FOR MRSA WOUND HX. NO S/S OF HYPO OR HYPERGLYCEMIA NOTED. ALL NEEDS ATTENDED. CONTINUE TO MONITOR
--- NOTE | 2019-08-15 20:30 | NUR ---
NABILA SRINIVASA MOODY CAME IN TO SIGN CONSENT FOR EGD PROCEDURE, ANESTHESIA, AND BLOOD CONSENT RIGHT NOW, CONSENT FOR PEG PLACEMENT SIGNED YESTERDAY. EGD WITH PEG PLACEMENT SCHEDULED FOR 1000
[2019-08-15] MEDS: *INSULIN REGULAR(HUMULIN R)HUM 100 UNIT/ML VIAL SQ PRN (21:39)
--- NOTE | 2019-08-15 22:00 | NUR ---
PT PLACED NPO FOR EGD WITH PEG PLACEMENT TOMORROW AT 1000
[2019-08-15] MEDS: IV 1/2NS 1000 ML 1,000 ML IV PRN (23:27)
[2019-08-16] VITALS: BP 133/63
[2019-08-16 04:00] VITALS: BP 119/71
[2019-08-16] MEDS: PIPERACILLIN /TAZOBACTAM 2.25 G in IV D5W 50 ML IV SCH ×3 (04:09→21:12)
[2019-08-16] MEDS: HYDROCODONE/APAP 5/325MG 1 EACH TABLET PO PRN ×3 (05:11→21:42)
--- NOTE | 2019-08-16 06:54 | NUR ---
PTS HEART RATE WENT TO 150S AFIB, DR PORTER HENDRICKSON CALLED, HE ORDERED METOPROLOL 5 MG IVP, I PULLED IT OUT AND WENT TO GIVE IT, BUT WHEN I CHECKED THE BLOOD PRESSURE BEFORE IT WAS 97/75, SO I DID NOT GIVE, WILL ENDORSE TO DAY SHIFT TO FOLLOW UP
[2019-08-16] MEDS ORDERED: METOPROLOL TARTRATE INJ 5 MG/5 ML AMPUL IVP ONE (07:00)
[2019-08-16 07:17] LABS: BASOPHILS % (AUTO) 0.1 % (0.0-2.0); EOSINOPHILS % (AUTO) 0.7 % (0.0-6.0); HEMATOCRIT 37 % (33-45); HEMOGLOBIN 11.7 g/dL (11.5-14.8); LYMPHOCYTES # (AUTO) 1.1 /CMM (0.8-4.8); LYMPHOCYTES % (AUTO) 9.4 % (20.0-44.0); MEAN CORPUSCULAR HGB CONC 32 g/dl (31.0-36.0); MEAN CORPUSCULAR VOLUME 88 fL (82-100); MONOCYTES # (AUTO) 0.6 /CMM (0.1-1.30); MONOCYTES % (AUTO) 4.7 % (2.0-12.0); NEUTROPHILS # (AUTO) 10.3 /CMM (1.8-8.9); NEUTROPHILS % (AUTO) 85.1 % (43.0-81.0); PLATELET COUNT (AUTO) 354 /CMM (150-450); RED BLOOD CELL COUNT(AUTO) 4.18 MIL/uL (4.0-5.2); WHITE BLOOD COUNT (AUTO) 12.1 K/uL (4.3-11.0)
--- NOTE | 2019-08-16 07:30 | NUR ---
RN NOTE: RECEIVED BEDSIDE REPORT FROM PM SHIFT NURSE AND PATIENT WAS ASLEEP, BUT AROUSABLE WITH TACTILE STIMULI. ON SIDING MECHANIC UNCONTROLLED A. FIB HR= 150'S. HOB ELEVATED. RESPIRATION EVEN AND UNLABORED SATURATING 100% WITH O2 2L/MIN VIA NC. (L) UPPER ARM AND (L) FOREARM IV SITE NOTED PATENT AND INTACT INFUSING 1/2 NS@ 40ML/HR. LOMBARDO CATHETER IN PLACED WITH YELLOW URINE DRAINING TO GRAVITY. BED ALARMED AND LOCKED AT ALL TIMES. CALL LIGHT WITHIN REACH. ON CONTACT ISOLATION FOR MRSA SACRAL WOUND. WILL ADDRESS THE CONCERN TO DR. JONES (VEGETABLE I FARMWORKER).
[2019-08-16 07:35] LABS: CALCIUM, SERUM 9.1 mg/dL (8.5-10.1); CREATININE 0.9 mg/dL (0.6-1.3); MAGNESIUM 1.8 mg/dL (1.8-2.4); PHOSPHORUS 2.9 mg/dL (2.5-4.9); POTASSIUM 4.9 mmol/L (3.5-5.1)
--- NOTE | 2019-08-16 07:43 | NUR ---
RN NOTE: DR. JONES WAS INFORMED ABOUT THE PATIENT'S HEART RATE OF 155 UNCONTROLLED ATRIAL FIBRILLATION. BP WAS 108/83. AND PATIENT IS SCHEDULED FOR PEG PLACEMENT TODAY AT 1000. PER MD, HE WILL TAKE A LOOK AT THE CHART. CHARGE NURSE GUS MADE AWARE. PATIENT WAS AWAKE AND NONVERBAL.
[2019-08-16 08:00] VITALS: BP_SYST 108; BP_DIAS 83; BP_DIAS 85
[2019-08-16] MEDS: BLOOD SUGAR DIAGNOSTIC 1 EACH STRIP VI SCH ×4 (08:14→21:21)
[2019-08-16] MEDS: HYDROCORTISONE SOD SUCCINATE 100 MG/2 ML VIAL IV SCH ×3 (08:14→16:51)
[2019-08-16] MEDS: ASPIRIN EC 81 MG TABLET.DR PO SCH (09:00)
[2019-08-16] MEDS: METOPROLOL TARTRATE 25 MG TABLET PO SCH ×2 (09:00→16:55)
[2019-08-16] MEDS: LACTOBACILLUS RHAMNOSUS GG 1 EACH CAP.SPRINK PO SCH ×2 (09:00→16:55)
[2019-08-16] MEDS ORDERED: AMIODARONE 150 MG in IV D5W 100 ML IV ONE (09:00)
[2019-08-16] MEDS ORDERED: AMIODARONE 900 MG in IV D5W 500 ML IV PRN (09:00)
[2019-08-16] MEDS: DAKINS QUARTER STRENGTH (0.125%) 480 ML BOTTLE TOP SCH (09:32)
--- NOTE | 2019-08-16 10:53 | NUR ---
PAVON RT TRIED 3X FOR PERPHERAL IV ,UNSUCCESSFUL,OBTAINED MIDLINE ORDER.
--- NOTE | 2019-08-16 11:14 | NUR ---
RN NOTE: PATIENT WAS CLEARED TO GO FOR A PEG PLACEMENT. PATIENT WAS TRANSPORTED TO OPERATING ROOM BY 2 SURGERY STAFF. PATIENT'S AMIODARONE DRIP WAS TRANSPORTED WITH THE PATIENT. (L) UA MIDLINE 18G WAS INSERTED BY B[place]ORDON/PICC LINE NURSE WITH GOOD BLOOD RETURN. PATIENT REMAINED ON UNCONTROLLED ATRIAL FIBRILLATION HR 103.
[2019-08-16 12:00] VITALS: BP 125/70
--- NOTE | 2019-08-16 12:00 | NUR ---
RN NOTE: RECEIVED A PHONE CALL FROM DARRICK, PACU NURSE REGARDING THE PATIENT'S RETURN TO THE UNIT. PEG PLACEMENT WAS DONE BY DR. SHETTY. AND PER NURSE REPORT OVER THE PHONE, THE GT CAN BE STARTED TO BE USED AT 1400 AND ALL PRE-OP ORDERS WILL BE RESUMED.
[2019-08-16] MEDS: INSULIN REGULAR, HUMAN 100 UNIT/ML 3 ML VIAL SQ PRN ×2 (12:19→18:10)
--- NOTE | 2019-08-16 12:20 | NUR ---
RN NOTE: PATIENT WAS RETURNED TO THE UNIT BACK IN ROOM 106 S/P PEG PLACEMENT WITH DR. SHETTY. WRITTEN ORDERS WERE NOTED AND CARRIED OUT. PATIENT REMAINED ON UNCONTROLLED A. FIB HR= 117 AFTER THE PROCEDURE. WILL CONTINUE TO MONITOR.
[2019-08-16] MEDS: AMIKACIN 300 MG in IV D5W 100 ML IV SCH (14:38)
[2019-08-16] MEDS: GLUCERNA 1.2 1,000 ML BOTTLE NG PRN (14:46)
[2019-08-16 16:00] VITALS: BP 128/73
--- NOTE | 2019-08-16 19:30 | NUR ---
RN NOTE: RECEIVED PHONE CALL FROM [employer] REGARDING THE AMIKACIN LEVEL 4.2
--- NOTE | 2019-08-16 19:45 | NUR ---
RN NOTE: BEDSIDE REPORT WAS GIVEN TO PM SHIFT NURSE FOR CONTINUITY OF CARE. ON CONTACT ISOLATION FOR MRSA SACRAL WOUND. PATIENT ON GT FEEDING OF GLUCERNA 1.2 @ 45ML/HR AND WAS TOLERATING IT WELL. NO BM WITHIN THE SHIFT.
[2019-08-16 20:00] VITALS: BP 136/66
--- NOTE | 2019-08-16 20:00 | NUR ---
RN INITIAL NOTE: RECEIVED PT IN BED. ON MAINTENANCE SUPERVISOR UNCONTROLLED A. FIB HR= 150'S. HOB ELEVATED. RESPIRATION EVEN AND UNLABORED SATURATING 100% WITH O2 2L/MIN VIA NC. (L) UPPER ARM AND (L) FOREARM IV SITE NOTED PATENT AND INTACT S/L. L UPPER ARM MIDLINE WITH AMIODARONE INFUSING ORDERED. LOMBARDO CATHETER IN PLACED WITH YELLOW URINE DRAINING TO GRAVITY.S/P PEG TUBE PLACEMENT AND EGD DONE TODAY. TUBE FEED INFUSING ORDERED. BED ALARMED ON AND LOCKED AT ALL TIMES. CALL LIGHT WITHIN REACH. ON CONTACT ISOLATION FOR MRSA SACRAL WOUND. WILL CONT TO MONITOR.
[2019-08-16] MEDS: *INSULIN REGULAR(HUMULIN R)HUM 100 UNIT/ML VIAL SQ PRN (21:25)
[2019-08-17] VITALS: BP 151/91
[2019-08-17 04:00] VITALS: BP 143/87
[2019-08-17] MEDS: PIPERACILLIN /TAZOBACTAM 2.25 G in IV D5W 50 ML IV SCH ×3 (05:35→21:02)
[2019-08-17] MEDS: HYDROCODONE/APAP 5/325MG 1 EACH TABLET PO PRN ×2 (05:58→16:24)
--- NOTE | 2019-08-17 07:03 | NUR ---
RN CLOSING NOTES NO CHANGE IN PTS CONDITION. TUBE FEEING INFUSING ORDERED. NARCO GIVEN X2 FOR PAIN. HR MAINTAINED ORDERED, PT ON AMIODARONE DRIP ORDERED. WILL ENDORSE TO AM RN.
--- NOTE | 2019-08-17 07:30 | NUR ---
RN AM NOTES: RECEIVED PT IN BED. ASLEEP, OPENS EYES, NON VERBAL, S/P PEG PLACEMENT AND EGD DONE 08/[address] SHETTY, ON 2L O2 NASAL CANULA, NOT IN ANY DISTRESS. CONTROLLED A. FIB HR= 90'S. (L) UPPER ARM AND (L) FOREARM IV SITE NOTED PATENT AND INTACT S/L. LEFT UPPER ARM MIDLINE WITH ONGOING AMIODARONE DRIP, INFUSING ORDERED. WILL BE FINISHED BY 0800. LOMBARDO CATHETER IN PLACED WITH YELLOW URINE DRAINING TO GRAVITY. ONGOING GTF GLUCERNA 1.2 AT 45 ML/HR 0 RESIDUAL. SEE NURSING FLOWSHEET FOR SKIN ISSUES. HOB ELEVATED. BED ALARM ON AND LOCKED AT ALL TIMES. CALL LIGHT WITHIN REACH. ON CONTACT ISOLATION FOR MRSA SACRAL WOUND. WILL CONT TO MONITOR.
[2019-08-17 08:00] VITALS: BP 133/73
[2019-08-17 08:38] LABS: BASOPHILS % (AUTO) 0.2 % (0.0-2.0); EOSINOPHILS % (AUTO) 0.5 % (0.0-6.0); HEMATOCRIT 38 % (33-45); HEMOGLOBIN 12.1 g/dL (11.5-14.8); LYMPHOCYTES # (AUTO) 0.9 /CMM (0.8-4.8); LYMPHOCYTES % (AUTO) 5.9 % (20.0-44.0); MEAN CORPUSCULAR HGB CONC 32 g/dl (31.0-36.0); MEAN CORPUSCULAR VOLUME 87 fL (82-100); MONOCYTES # (AUTO) 0.5 /CMM (0.1-1.30); MONOCYTES % (AUTO) 3.4 % (2.0-12.0); NEUTROPHILS # (AUTO) 13.1 /CMM (1.8-8.9); PLATELET COUNT (AUTO) 302 /CMM (150-450); RED BLOOD CELL COUNT(AUTO) 4.31 MIL/uL (4.0-5.2); WHITE BLOOD COUNT (AUTO) 14.6 K/uL (4.3-11.0)
[2019-08-17] MEDS: BLOOD SUGAR DIAGNOSTIC 1 EACH STRIP VI SCH ×4 (08:39→21:02)
[2019-08-17 08:42] LABS: CALCIUM, SERUM 8.8 mg/dL (8.5-10.1); MAGNESIUM 1.8 mg/dL (1.8-2.4); PHOSPHORUS 2.6 mg/dL (2.5-4.9); POTASSIUM 4.9 mmol/L (3.5-5.1)
[2019-08-17] MEDS: ASPIRIN EC 81 MG TABLET.DR PO SCH (08:59)
[2019-08-17] MEDS: LACTOBACILLUS RHAMNOSUS GG 1 EACH CAP.SPRINK PO SCH ×2 (08:59→16:22)
[2019-08-17] MEDS: DAKINS QUARTER STRENGTH (0.125%) 480 ML BOTTLE TOP SCH (09:00)
[2019-08-17] MEDS ORDERED: AMIODARONE HCL 200 MG TABLET GT SCH (09:00)
[2019-08-17] MEDS: METOPROLOL TARTRATE 25 MG TABLET PO SCH ×2 (09:00→16:23)
[2019-08-17] MEDS: *INSULIN REGULAR(HUMULIN R)HUM 100 UNIT/ML VIAL SQ PRN ×3 (09:02→21:03)
[2019-08-17] MEDS: HYDROCORTISONE SOD SUCCINATE 100 MG/2 ML VIAL IV SCH ×3 (09:05→16:22)
--- NOTE | 2019-08-17 09:30 | NUR ---
RN NOTES 08 ACCUCHECK BS 258 MG/DL, 6 UNITS HUM R GIVEN PER SS
[2019-08-17] MEDS: AMIODARONE HCL 200 MG TABLET GT SCH ×2 (09:31→21:02)
--- NOTE | 2019-08-17 11:40 | NUR ---
RN NOTES ACCUCHECK BS 270 MG/DL, 9 UNITS HUM R GIVEN PER SS
--- NOTE | 2019-08-17 11:47 | NUR ---
RN NOTES 08 ACCUCHECK BS 270 MG/DL, 9 UNITS HUM R GIVEN PER SS
[2019-08-17 12:00] VITALS: BP_SYST 128; BP_SYST 168; BP_DIAS 70; BP_DIAS 91
[2019-08-17] MEDS: APIXABAN 2.5 MG TABLET PO SCH ×2 (12:12→16:24)
[2019-08-17] MEDS: GLUCERNA 1.2 1,000 ML BOTTLE NG PRN (12:20)
[2019-08-17] MEDS: INSULIN REGULAR, HUMAN 100 UNIT/ML 3 ML VIAL SQ PRN (12:49)
[2019-08-17 16:00] VITALS: BP 125/79
--- NOTE | 2019-08-17 16:35 | NUR ---
RN NOTES ACCUCHECK BS 198 MG/DL, 3 UNITS HUM R GIVEN PER SS
--- NOTE | 2019-08-17 19:09 | NUR ---
RN NOTES ALL NEEDS MET. PATIENT RESTING COMFORTABLY. TURNED AND REPOSITIONED Q 2 HOURS. PM CARE AND PRESCRIBED WOUND CARE DONE EARLIER. NOT IN ANY DISTRESS. VITAL SIGNS STABLE. GTF ONGOING. WELL TOLERATED. LOMBARDO CATH IN PLACE, 350 ML OUTPUT. PAIN MEDICATION GIVEN 1X DURING DAYSHIFT. NO OTHER SIGNIFICANT CHANGE IN CONDITION. WILL ENDORSE TO NEXT SHIFT FOR EULA.
[2019-08-17 20:00] VITALS: BP 100/79
--- NOTE | 2019-08-17 20:46 | NUR ---
MS RN NOTES RECEIVED PT ON BED. A/O X1. ON NASAL CANNULA 5LPM NO RESPIRATORY DISTRESS NOTED. ON TELE MONITOR AFIB WITH RVR 84. LOMBARDO CATH DRAINING YELLOW URINE. PETER TUBE FEEDING GLUCERNA @ 45CC/HR NO RESIDUAL NOTED. HEAD OF BED ELEVATED. SIDE RAILS UP. CALL LIGHT WITHIN REACH. BED ALARM ON. WILL CONTINUE TO MONITOR PT CLOSELY.
[2019-08-18 00:22] VITALS: BP 126/84
[2019-08-18] MEDS: HYDROCODONE/APAP 5/325MG 1 EACH TABLET PO PRN ×3 (00:25→20:18)
[2019-08-18] MEDS: ACETAMINOPHEN 325 MG TABLET PO PRN (01:01)
[2019-08-18] MEDS: AMIKACIN 300 MG in IV D5W 100 ML IV SCH ×2 (01:09→01:19)
[2019-08-18 04:00] VITALS: BP 142/62
[2019-08-18] MEDS: PIPERACILLIN /TAZOBACTAM 2.25 G in IV D5W 50 ML IV SCH ×3 (04:55→20:19)
--- NOTE | 2019-08-18 06:34 | NUR ---
MS RN NOTES NO ACUTE CHANGES NOTED DURING THE SHIFT. PROVIDED COMFORT AND SAFETY. WILL ENDORSE TO THE AM NURSE FOR CONTINUITY OF CARE.
[2019-08-18] MEDS: BLOOD SUGAR DIAGNOSTIC 1 EACH STRIP VI SCH ×4 (07:39→22:07)
--- NOTE | 2019-08-18 07:57 | NUR ---
MS RN NOTES RECEIVED PT IN BED A/O X1 , ABLE TO AROUSE WHEN NAME CALLED. NO SIGN OF DISTRESS AND DISCOMFORT AT THIS TIME. GT INTACT NO RESIDUAL NOTED. PETER TUBE FEEDING GLUCERNA @ 45CC/HR. LEFT AC FLUSHED WELL. ALL SAFETY MEASURE OBSERVED, BED AT LOWEST POSITION LOCKED, SIDE RAILS UP X4. CALL LIGHT WITHIN REACH. WILL MONITOR CLOSELY.
[2019-08-18 08:00] VITALS: BP 146/84
[2019-08-18] MEDS: INSULIN REGULAR, HUMAN 100 UNIT/ML 3 ML VIAL SQ PRN ×4 (08:49→22:04)
[2019-08-18] MEDS: ASPIRIN EC 81 MG TABLET.DR PO SCH (09:01)
[2019-08-18] MEDS: AMIODARONE HCL 200 MG TABLET GT SCH ×2 (09:01→20:21)
[2019-08-18] MEDS: HYDROCORTISONE SOD SUCCINATE 100 MG/2 ML VIAL IV SCH ×3 (09:02→17:15)
[2019-08-18] MEDS: LACTOBACILLUS RHAMNOSUS GG 1 EACH CAP.SPRINK PO SCH ×2 (09:02→17:15)
[2019-08-18] MEDS: METOPROLOL TARTRATE 25 MG TABLET PO SCH ×2 (09:02→17:23)
[2019-08-18] MEDS: APIXABAN 2.5 MG TABLET PO SCH ×2 (09:07→17:22)
--- NOTE | 2019-08-18 11:00 | NUR ---
MS RN NOTES ANNE MARIE FROM LAB INFORMED SHE WAS NOT ABLE TO DRAW BLOOD.
[2019-08-18 11:39] LABS: BASOPHILS % (AUTO) 0.1 % (0.0-2.0); EOSINOPHILS % (AUTO) 0.2 % (0.0-6.0); HEMATOCRIT 37 % (33-45); HEMOGLOBIN 11.8 g/dL (11.5-14.8); LYMPHOCYTES # (AUTO) 0.7 /CMM (0.8-4.8); LYMPHOCYTES % (AUTO) 5.7 % (20.0-44.0); MEAN CORPUSCULAR HGB CONC 32 g/dl (31.0-36.0); MEAN CORPUSCULAR VOLUME 89 fL (82-100); MONOCYTES # (AUTO) 0.6 /CMM (0.1-1.30); MONOCYTES % (AUTO) 4.8 % (2.0-12.0); NEUTROPHILS # (AUTO) 11.1 /CMM (1.8-8.9); NEUTROPHILS % (AUTO) 89.2 % (43.0-81.0); PLATELET COUNT (AUTO) 337 /CMM (150-450); RED BLOOD CELL COUNT(AUTO) 4.19 MIL/uL (4.0-5.2); WHITE BLOOD COUNT (AUTO) 12.4 K/uL (4.3-11.0)
[2019-08-18 12:36] LABS: LYMPHOCYTES % (MANUAL) 5 % (16-48); MONOCYTES % (MANUAL) 3 % (0-11.0); MYELOCYTES % 1 % (0-0); NEUTROPHILS % (MANUAL) 91 (42-76)
[2019-08-18] MEDS: DAKINS QUARTER STRENGTH (0.125%) 480 ML BOTTLE TOP SCH (14:20)
[2019-08-18 16:00] VITALS: BP 120/73
--- NOTE | 2019-08-18 17:00 | NUR ---
MS RN NOTES RECEIVED A PHONE CALL FROM DAUGHTER IN LAW REGARDING DISCHARGE. REGARDING WOUND OUTCOME CONTACTED WOUND CARE NURSE AND REED REPAIRER, LEFT A VOICE MSG FOR DC UPDATES. WILL ENDORSE TO PUMP MECHANIC NURSE FOR FOLLOW UP.
[2019-08-18] MEDS: PROSOURCE / PROSTAT (PYXIS) 30 ML UDC GT SCH (17:14)
--- NOTE | 2019-08-18 19:00 | NUR ---
MS RN NOTES: RECEIVED PATIENT IN BED MOANING. G-TUBE INTACT, NO RESIDUAL. FLUSHED TUBING. STARTED A NEW BOTTLE OF FEEDING RUNNING AT 50ML/HR, TUBING CHANGED. HEAD OF BED ELEVATED AT ALL TIMES. ISOLATION PRECAUTION MAINTAINED. BED ALARM ON. SON CAME TO VISIT AT 2100, AND HE STATES THAT HE WANTS TO SEE THE SACRAL WOUND TOMORROW, HE WILL BE COMING BACK TOMORROW BETWEEN 9 AND 10 AM, WILL ENDORSE TO THE NEXT SHIFT RN.
--- NOTE | 2019-08-18 19:30 | NUR ---
MS RN NOTES CLOSING PT SLEEPING IN BED COMFORTABLY. NO SIGN OF DISTRESS AND DISCOMFORT AT THIS TIME. GT INTACT. CENTRAL LINE AND SL INTACT FLUSHED WITH NS WELL. PT ON TUBE FEEDING GLUCERNA @ 50CC/HR PER DIETITIAN RECOMMENDATION. ALL NEEDS ATTENDED. ALL SAFETY MEASURE OBSERVED, BED AT LOWEST POSITION LOCKED, SIDE RAILS UP X4. CALL LIGHT WITHIN REACH. ENDORSED TO IT AUDIT MANAGER NURSE FOR EULA.
[2019-08-18 20:00] VITALS: BP_SYST 122; BP_SYST 146; BP_DIAS 84; BP_DIAS 90
[2019-08-18] MEDS: GLUCERNA 1.2 1,000 ML BOTTLE NG PRN (20:22)
[2019-08-19 04:22] VITALS: BP 122/90
[2019-08-19] MEDS: PIPERACILLIN /TAZOBACTAM 2.25 G in IV D5W 50 ML IV SCH ×3 (05:32→22:16)
[2019-08-19] MEDS: HYDROCODONE/APAP 5/325MG 1 EACH TABLET PO PRN ×4 (06:26→21:02)
--- NOTE | 2019-08-19 06:45 | NUR ---
MS RN CLOSING NOTES: PATIENT IS RESTING IN BED, NORCO 1 TAB PER G-TUBE GIVEN AT 0630. NO ACUTE EVENTS OVERNIGHT. AFEBRILE. VITALS STABLE. TURNED TO SIDES. ISOLATION PRECAUTION OBSERVED. BED ALARM ON. BED IN LOW AND LOCKED POSITION. HEMODYNAMICS AND RESPIRATORY STATUS ARE STABLE.
[2019-08-19] MEDS: BLOOD SUGAR DIAGNOSTIC 1 EACH STRIP VI SCH ×4 (07:50→22:27)
--- NOTE | 2019-08-19 07:51 | NUR ---
RN OPENING NOTES RECEIVED PATIENT SLEEPING IN BED WITH PERIODS OF CRYING, EASILY AROUSED. SHE IS AO X1, NON-VERBAL, NON-AMBULATORY. PT IS RECEIVING GLUCERNA AT 50ML/HR, INTACT, TOLERATING WELL, NO RESIDUAL. LOMBARDO IS INTACT AND PATENT, CLEAR AND YELLOW URINE. STAGE 4 SACRAL PRESSURE INJURY, WILL CHANGE DRESSING ONCE SON IS AT BEDSIDE. ENRIQUE MIDLINE, PATENT AND INTACT. L ARM 20 G, PATENT AND INTACT. SAFETY MEASURES HAVE BEEN IMPLEMENTED, CALL LIGHT IS WITHIN REACH, BED IS IN LOWEST AND LOCKED POSITION, SIDE RAILS UP X2, HOB ELEVATED, WILL CONTINUE TO MONITOR FOR ANY CHANGES.
[2019-08-19 08:00] VITALS: BP 146/72
[2019-08-19] MEDS: INSULIN REGULAR, HUMAN 100 UNIT/ML 3 ML VIAL SQ PRN ×3 (08:09→17:52)
[2019-08-19] MEDS: LACTOBACILLUS RHAMNOSUS GG 1 EACH CAP.SPRINK PO SCH ×2 (08:10→16:51)
[2019-08-19] MEDS: HYDROCORTISONE SOD SUCCINATE 100 MG/2 ML VIAL IV SCH ×3 (08:10→16:51)
[2019-08-19] MEDS: APIXABAN 2.5 MG TABLET PO SCH ×2 (08:10→17:49)
[2019-08-19] MEDS: ASPIRIN EC 81 MG TABLET.DR PO SCH (08:11)
[2019-08-19] MEDS: AMIODARONE HCL 200 MG TABLET GT SCH ×2 (08:21→22:30)
[2019-08-19] MEDS: METOPROLOL TARTRATE 25 MG TABLET PO SCH ×2 (08:22→16:57)
[2019-08-19] MEDS: DAKINS QUARTER STRENGTH (0.125%) 480 ML BOTTLE TOP SCH (08:23)
[2019-08-19] MEDS: PROSOURCE / PROSTAT (PYXIS) 30 ML UDC GT SCH ×2 (08:32→17:27)
--- NOTE | 2019-08-19 11:21 | NUR ---
0900 METOPOLOL HELD, BP WAS WITHIN NORMAL RANGE
[2019-08-19 13:04] LABS: CALCIUM, SERUM 9.2 mg/dL (8.5-10.1); CREATININE 0.7 mg/dL (0.6-1.3); POTASSIUM 4.6 mmol/L (3.5-5.1)
[2019-08-19] MEDS: AMIKACIN 300 MG in IV D5W 100 ML IV SCH (14:31)
[2019-08-19 16:00] VITALS: BP 134/91
--- NOTE | 2019-08-19 19:10 | NUR ---
CHANGE OF SHIFT REPORT Patient in bed, eyes closed, noted intermittent crying. On oxygen at 3L via NC, abdomen presence of Gtube, feeding Glucerna 1.2 at 50ml/hr. Maintained upright position. Contact precaution, PPE utilized. Maintained safety.
--- NOTE | 2019-08-19 19:10 | NUR ---
RN CLOSING NOTES PATIENT IS RESTING IN BED COMFORTABLY, SHOWS NO S/SX OF RESP DISTRESS OR SOB AT THIS TIME. VITAL SIGNS ARE STABLE, NO ACUTE CHANGES OCCURRED DURING THE SHIFT. PT NEEDS HAVE BEEN MET. DRESSING HAVE BEEN CHANGED. SAFETY MEASURES HAVE BEEN IMPLEMENTED, BED IS IN LOWEST AND LOCKED POSITION, CALL LIGHT IS WITHIN REACH, SIDE RAILS UP X2, WILL ENDORSE TO NIGHTSHIFT RN FOR CONTINUITY OF CARE.
[2019-08-19 20:00] VITALS: BP 142/79
[2019-08-19] MEDS: GLUCERNA 1.2 1,000 ML BOTTLE NG PRN (20:31)
[2019-08-19] MEDS: *INSULIN REGULAR(HUMULIN R)HUM 100 UNIT/ML VIAL SQ PRN (22:26)
[2019-08-20] MEDS: HYDROCODONE/APAP 5/325MG 1 EACH TABLET PO PRN ×3 (02:11→22:57)
[2019-08-20] MEDS: PIPERACILLIN /TAZOBACTAM 2.25 G in IV D5W 50 ML IV SCH ×3 (06:10→21:00)
--- NOTE | 2019-08-20 06:32 | NUR ---
END OF SHIFT REPORT Patient in bed, eyes closed, speech unclear. Gtube feeding @50ml/hr tolerating well, gastric residual 5ml. Maintained upright position. IV abx as scheduled. Dressing changed to sacral wound, moaning at crying at times, given PRN [place] for pain. [place] cath to gravity. Contact precaution, PPE utilized. Fall precaution maintained, reposition schedule followed.
[2019-08-20 06:45] LABS: CALCIUM, SERUM 9.5 mg/dL (8.5-10.1); CREATININE 0.7 mg/dL (0.6-1.3); POTASSIUM 5.4 mmol/L (3.5-5.1)
--- NOTE | 2019-08-20 07:20 | NUR ---
MS RN OPENING NOTE RECEIVED REPORT FROM [facility] SHIFT NURSE. PT ASLEEP IN BED, ON 02 VIA NC 3L/MIN, RESPIRATIONS EASY AND UNLABORED, NO SIGNS OF RESPIRATORY DISTRESS NOTED. LOMBARDO CATHETER DRAINING CLEAR YELLOW URINE. IV SITE ON LEFT HAND G22 PATENT, INTACT. BED IN LOW POSITION, LOCKED, CALL LIGHT WITHIN REACH,
[2019-08-20 08:00] VITALS: BP 128/80
[2019-08-20] MEDS: BLOOD SUGAR DIAGNOSTIC 1 EACH STRIP VI SCH ×4 (08:04→22:51)
[2019-08-20] MEDS: INSULIN REGULAR, HUMAN 100 UNIT/ML 3 ML VIAL SQ PRN ×4 (08:19→22:54)
[2019-08-20] MEDS: DAKINS QUARTER STRENGTH (0.125%) 480 ML BOTTLE TOP SCH (09:00)
[2019-08-20] MEDS: ASPIRIN EC 81 MG TABLET.DR PO SCH (09:26)
[2019-08-20] MEDS: LACTOBACILLUS RHAMNOSUS GG 1 EACH CAP.SPRINK PO SCH ×2 (09:26→16:54)
[2019-08-20] MEDS: AMIODARONE HCL 200 MG TABLET GT SCH ×2 (09:28→21:01)
[2019-08-20] MEDS: HYDROCORTISONE SOD SUCCINATE 100 MG/2 ML VIAL IV SCH ×2 (09:28→16:54)
[2019-08-20] MEDS: PROSOURCE / PROSTAT (PYXIS) 30 ML UDC GT SCH ×2 (09:32→16:14)
[2019-08-20] MEDS: APIXABAN 2.5 MG TABLET PO SCH ×2 (09:40→16:56)
[2019-08-20] MEDS: METOPROLOL TARTRATE 25 MG TABLET PO SCH ×2 (09:47→16:55)
[2019-08-20 16:00] VITALS: BP 127/71
[2019-08-20] MEDS: GLUCERNA 1.2 1,000 ML BOTTLE NG PRN (17:15)
--- NOTE | 2019-08-20 18:34 | NUR ---
MS RN CLOSING NOTE PT ASLEEP IN BED, ON 02 VIA NC 3L/MIN, RESPIRATIONS EASY AND UNLABORED, NO SIGNS OF RESPIRATORY DISTRESS NOTED. LOMBARDO CATHETER DRAINING YELLOW URINE WITH SEDIMENT. IV SITE ON LEFT HAND G22 PATENT, INTACT SALINE LOCK. GLUCERNA 1.2 INFUSING AT 50ML/HR, PT TOLERATING FEEDING WELL. BED IN LOW POSITION, LOCKED, CALL LIGHT WITHIN REACH. PROVIDED SAFETY AND COMFORT TO PT THROUGHOUT SHIFT. TURNED AND REPOSITIONED EVERY 2 HOURS. WILL ENDORSE TO NOC SHIFT FOR EULA.
--- NOTE | 2019-08-20 19:33 | NUR ---
MS RN OPENING NOTE RECEIVED PATIENT ASLEEP IN BED, ON 02 VIA NC 3L/MIN, RESPIRATIONS EASY AND UNLABORED, NO SIGNS OF RESPIRATORY DISTRESS NOTED. LOMBARDO CATHETER DRAINING YELLOW URINE WITH SEDIMENT. IV SITE ON LEFT HAND G#22 PATENT, INTACT SALINE LOCK. GLUCERNA 1.2 INFUSING AT 50ML/HR, PT TOLERATING FEEDING WELL. BED IN LOW POSITION, LOCKED, CALL LIGHT WITHIN REACH. WILL CONTINUE TO MONITOR
[2019-08-20 20:00] VITALS: BP 145/96
[2019-08-21] VITALS: BP 145/96
[2019-08-21] MEDS: AMIKACIN 300 MG in IV D5W 100 ML IV SCH (02:04)
[2019-08-21] MEDS: HYDROCODONE/APAP 5/325MG 1 EACH TABLET PO PRN ×3 (03:20→14:14)
[2019-08-21 04:00] VITALS: BP 144/89
[2019-08-21 04:01] VITALS: BP 144/89
[2019-08-21] MEDS: PIPERACILLIN /TAZOBACTAM 2.25 G in IV D5W 50 ML IV SCH ×3 (04:45→21:12)
[2019-08-21 06:24] LABS: CALCIUM, SERUM 8.9 mg/dL (8.5-10.1); CREATININE 0.7 mg/dL (0.6-1.3); POTASSIUM 5.1 mmol/L (3.5-5.1)
[2019-08-21] MEDS ORDERED: LIDOCAINE 1%-EPI 1:100,000 20 ML VIAL TP ONE (06:30)
--- NOTE | 2019-08-21 07:15 | NUR ---
MS RN NOTE DID SCAN THE LIDOCAINE 1% BUT DID NOT ADMINISTER ANY TO PATIENT, LIDOCAINE IS IN PATIENTS CASETTE IN MEDS ROOM .
--- NOTE | 2019-08-21 07:19 | NUR ---
MS RN CLOSING NOTE PATIENT IN BED SLEEPING , ON 02 VIA NC 3L/MIN, RESPIRATIONS EASY AND UNLABORED, NO SIGNS OF RESPIRATORY DISTRESS NOTED. LOMBARDO CATHETER DRAINING YELLOW URINE WITH SEDIMENT. IV SITE ON LEFT HAND G#22 PATENT, INTACT SALINE LOCK. GLUCERNA 1.2 INFUSING AT 50ML/HR, PT TOLERATING FEEDING WELL. BED IN LOW POSITION, LOCKED, CALL LIGHT WITHIN REACH. WILL ENDORSE THE PATIENT TO AM RN FOR EULA .
[2019-08-21] MEDS: BLOOD SUGAR DIAGNOSTIC 1 EACH STRIP VI SCH ×4 (07:51→21:54)
[2019-08-21 08:00] VITALS: BP 175/91
--- NOTE | 2019-08-21 08:14 | NUR ---
MS RN NOTES OPENING RECEIVED PT IN BED SLEEPING, AROUSED WHEN NAME CALLED, NONVERBAL. NO SIGNS OF SOB AND DISCOMFORT NOTED AT THIS TIME. GLUCERNA IS RUNNING AT 50ML/H. L UPPER HAND AND UA MIDLINE FLUSHED WELL. ALL SAFETY MEASURES OBSERVED. BED LOCKED AT THE LOWEST POSITION, CALL LIGHT WITHIN REACH. WILL CONTINUE TO MONITOR PT.
[2019-08-21] MEDS: METOPROLOL TARTRATE 25 MG TABLET PO SCH ×2 (08:49→18:50)
[2019-08-21] MEDS: INSULIN REGULAR, HUMAN 100 UNIT/ML 3 ML VIAL SQ PRN ×3 (08:56→19:10)
[2019-08-21] MEDS: ASPIRIN EC 81 MG TABLET.DR PO SCH (09:07)
[2019-08-21] MEDS: LACTOBACILLUS RHAMNOSUS GG 1 EACH CAP.SPRINK PO SCH ×2 (09:07→18:46)
[2019-08-21] MEDS: AMIODARONE HCL 200 MG TABLET GT SCH ×2 (09:08→21:12)
[2019-08-21] MEDS: HYDROCORTISONE SOD SUCCINATE 100 MG/2 ML VIAL IV SCH ×2 (09:08→15:07)
[2019-08-21] MEDS: APIXABAN 2.5 MG TABLET PO SCH ×2 (09:11→18:53)
[2019-08-21] MEDS: DAKINS QUARTER STRENGTH (0.125%) 480 ML BOTTLE TOP SCH (09:22)
[2019-08-21] MEDS: PROSOURCE / PROSTAT (PYXIS) 30 ML UDC GT SCH ×2 (13:10→18:46)
[2019-08-21] MEDS ORDERED: HYDROCORTISONE SOD SUCCINATE 100 MG/2 ML VIAL IV SCH (14:00)
[2019-08-21] MEDS: CLOTRIMAZOLE 1% 15 GM TUBE TP SCH ×2 (15:08→18:51)
[2019-08-21 16:00] VITALS: BP 121/77
[2019-08-21] MEDS: GLUCERNA 1.2 1,000 ML BOTTLE NG PRN (19:11)
[2019-08-21 20:00] VITALS: BP 137/89
--- NOTE | 2019-08-21 20:00 | NUR ---
MS RN NOTES, RECEIVED PT IN BED SLEEPING AT THIS TIME, NONVERBAL PER PRIOR NURSE PATIENT MOANS AND CRIES, BREATHING EVEN AND UNLABORED, NO SOB/ACUTE DISTRESS NOTED, GT IN PLACED, GLUCERNA IS INFUSING WELL AT 50ML/H, AND PATIENT TOLERATED WELL, LEFT UPPER HAND AND UA MIDLINE SEEMS DISLODGED, WILL F/U, F/C IN PLACED DRAINING YELLOW URINE BY GRAVITY, PATENCY INTACT, ALL SAFETY MEASURES IN PLACE, BED LOCKED AND IN LOWEST POSITION, CALL LIGHT WITHIN REACH, WILL CONTINUE TO MONITOR PATIENT CLOSELY.
--- NOTE | 2019-08-21 20:47 | NUR ---
MS RN NOTES CLOSING PT IN BED SLEEPING COMFORTABLY, ABLE TO AROUSE WHEN NAME CALLED A/O X1. NO SIGNS OF SOB AND DISCOMFORT NOTED AT THIS TIME. ALL NEEDS ATTENDED. GLUCERNA IS RUNNING AT 50ML/H. L UPPER HAND MIDLINE INTACT FLUSHED WELL. LEFT HAND #22 REMOVED DUE TO LEAKAGE. ALL SAFETY MEASURES OBSERVED. BED LOCKED AT THE LOWEST POSITION, CALL LIGHT WITHIN REACH. ENDORSED TO CONTROLS TECHNICIAN NURSE FOR EULA.
[2019-08-21] MEDS: *INSULIN REGULAR(HUMULIN R)HUM 100 UNIT/ML VIAL SQ PRN (21:56)
--- NOTE | 2019-08-21 22:50 | NUR ---
RN NOTES, IV 20G STARTED IN LEFT FORE ARM , AND ZOSYN IV ADMINISTERED AT THIS TIME.
--- NOTE | 2019-08-21 23:40 | NUR ---
RN NOTES, INSERTION MIDLINE IN THE DEPARTMENT AT THIS TIME, AND HE CONFIRMED THAT MIDLINE IS DISLODGED, CALLED DR SYSTEMS TEST ENGINEER PORTER CUNNINGHAM TO GET A ORDER FOR MIDLINE INSERTION, PATIENT IS HARD STICK AND HAS ANTIBIOTICS IV, AND DR BUENROSTRO STATE TO HOLD MIDLINE INSERTION FOR NOW, WILL CONTINUE TO MONITOR AND TRY AGAIN TO START PERIPHERAL IV LINE.
[2019-08-22 04:00] VITALS: BP 119/66
[2019-08-22] MEDS: PIPERACILLIN /TAZOBACTAM 2.25 G in IV D5W 50 ML IV SCH (04:33)
[2019-08-22 06:36] LABS: CREATININE 0.7 mg/dL (0.6-1.3); POTASSIUM 4.9 mmol/L (3.5-5.1)
--- NOTE | 2019-08-22 07:00 | NUR ---
MS RN NOTES, PATIENT IN BED SLEEPING AT THIS TIME, BREATHING EVEN AND UNLABORED NO SIGNS OF SOB AND ACUTE DISTRESS NOTED, NO SIGNIFICANT CHANGE IN CONDITION DURING THE NIGHT, ALL SAFETY MEASURES OBSERVED, WILL ENDORSE CONTINUITY OF CARE TO ONCOMING NURSE.
[2019-08-22] MEDS: BLOOD SUGAR DIAGNOSTIC 1 EACH STRIP VI SCH ×2 (07:52→12:34)
[2019-08-22 08:00] VITALS: BP 118/74
--- NOTE | 2019-08-22 08:07 | NUR ---
MS RN NOTES RECEIVED PT SLEEPING IN BED. AROUSED WHEN NAME CALLED A/OX1 NON VERBAL. NO SIGNS OF SOB AND DISCOMFORT NOTED AT THIS TIME. PT ON CONTACT ISOLATION MRSA WOUND. NO RESIDUAL NOTED ON GT, PATENT FLUSHED, RUNNING 50ML/H. LEFT AC MIDLINE IS NOT INTACT, WILL FOLLOW UP WITH PHYSICIAN. LEFT FOREARM #20 INTACT AND FLUSHED WELL. ALL SAFETY MEASURE OBSERVED BED AT LOWEST POSITION LOCKED SIDE RAILS UP. CALL LIGHT WITHIN REACH. WILL CONTINUE TO MONITOR
[2019-08-22] MEDS: HYDROCORTISONE SOD SUCCINATE 100 MG/2 ML VIAL IV SCH (08:37)
[2019-08-22] MEDS: ASPIRIN EC 81 MG TABLET.DR PO SCH (08:38)
[2019-08-22] MEDS: METOPROLOL TARTRATE 25 MG TABLET PO SCH (08:39)
[2019-08-22] MEDS: LACTOBACILLUS RHAMNOSUS GG 1 EACH CAP.SPRINK PO SCH (08:41)
[2019-08-22] MEDS: APIXABAN 2.5 MG TABLET PO SCH (08:44)
[2019-08-22] MEDS: INSULIN REGULAR, HUMAN 100 UNIT/ML 3 ML VIAL SQ PRN (08:44)
[2019-08-22 08:49] VITALS: BP 118/74
[2019-08-22] MEDS: AMIODARONE HCL 200 MG TABLET GT SCH (08:49)
[2019-08-22] MEDS: DAKINS QUARTER STRENGTH (0.125%) 480 ML BOTTLE TOP SCH (09:01)
[2019-08-22] MEDS: CLOTRIMAZOLE 1% 15 GM TUBE TP SCH (09:02)
== END 2019-08-22 13:45 | DRG 853 ==
LOC: ER 17:01 → ICU 17:36 → MED 08-09 18:15 → TELE 08-13 01:41 → TELE-TD 08-13 02:12 → TELE1 08-13 17:29 → TELE-TD 08-15 12:32 → MEDSG1 08-17 20:46
PROVIDERS: ADMIT Internal Medicine; ATTEND Internal Medicine
PROC: 0KBP0ZZ Excision of Left Hip Muscle, Open Approach (ICD-10-PCS; principal; 2019-08-10)
PROC: 0KBN0ZZ Excision of Right Hip Muscle, Open Approach (ICD-10-PCS; 2019-08-10)
PROC: 0KBP0ZZ Excision of Left Hip Muscle, Open Approach (ICD-10-PCS; 2019-08-14)
PROC: 0KBN0ZZ Excision of Right Hip Muscle, Open Approach (ICD-10-PCS; 2019-08-14)
PROC: 0DH63UZ Insertion of Feeding Device into Stomach, Percutaneous Approach (ICD-10-PCS; 2019-08-16)
PROC: 05H633Z Insertion of Infusion Device into Left Subclavian Vein, Percutaneous Approach (ICD-10-PCS; 2019-08-16)
PROC: 0QB10ZZ Excision of Sacrum, Open Approach (ICD-10-PCS; 2019-08-21)
DX: A41.9 Sepsis, unspecified organism (principal); L89.154 Pressure ulcer of sacral region, stage 4; I21.A1 Myocardial infarction type 2; G93.41 Metabolic encephalopathy; N17.0 Acute kidney failure with tubular necrosis; E43 Unspecified severe protein-calorie malnutrition; J96.01 Acute respiratory failure with hypoxia; D68.59 Other primary thrombophilia; E87.0 Hyperosmolality and hypernatremia; N39.0 Urinary tract infection, site not specified; J98.11 Atelectasis; E87.2 Acidosis; Z68.42 Body mass index [BMI] 45.0-49.9, adult; E27.40 Unspecified adrenocortical insufficiency; I13.0 Hypertensive heart and chronic kidney disease with heart failure and stage 1 through stage 4 chronic kidney disease, or unspecified chronic kidney disease; E86.1 Hypovolemia; E83.42 Hypomagnesemia; E83.39 Other disorders of phosphorus metabolism; E86.0 Dehydration; D63.8 Anemia in other chronic diseases classified elsewhere; E87.5 Hyperkalemia; R62.7 Adult failure to thrive; R13.10 Dysphagia, unspecified; R65.20 Severe sepsis without septic shock; L89.150 Pressure ulcer of sacral region, unstageable; Z79.01 Long term (current) use of anticoagulants; Z79.84 Long term (current) use of oral hypoglycemic drugs; E11.65 Type 2 diabetes mellitus with hyperglycemia; Z89.612 Acquired absence of left leg above knee; Z89.611 Acquired absence of right leg above knee; E88.09 Other disorders of plasma-protein metabolism, not elsewhere classified; I95.9 Hypotension, unspecified; L98.8 Other specified disorders of the skin and subcutaneous tissue; F03.90 Unspecified dementia, unspecified severity, without behavioral disturbance, psychotic disturbance, mood disturbance, and anxiety; I50.9 Heart failure, unspecified; B96.4 Proteus (mirabilis) (morganii) as the cause of diseases classified elsewhere; I48.0 Paroxysmal atrial fibrillation; K29.70 Gastritis, unspecified, without bleeding; I07.1 Rheumatic tricuspid insufficiency; B96.20 Unspecified Escherichia coli [E. coli] as the cause of diseases classified elsewhere; N18.9 Chronic kidney disease, unspecified
CPT/HCPCS: 36415; 36600; 43246; 71045-TC; 72148-TC; 80048-TC; 80053-TC; 80061-TC; 80076-TC; 80150; 81000-TC; 82040-TC; 82533; 82803-TC; 82962-TC; 83605-TC; 83735-TC; 84100-TC; 84134-TC; 84439-TC; 84443-TC; 84484-TC; 85025-TC; 85730-TC; 86850-TC; 87040-TC; 87070-TC; 87081-TC; 87086-TC; 87186-TC; 92526; 92611-TC; 94799-TC; A4217; A6253; A6403; G0378; J0278; J0282; J1644; J1720; J1815; J2543; J2704; J3475; J3490; J7030; J7050; J7060